=== PATIENT | male | born 1955 | race American Indian/Alaskan Native ===

== ENCOUNTER 2020-09-25 12:49 | Emergency (ER) | payer MEDICARE ==
--- NOTE | 2020-09-25 15:29 | Emergency Department Report ---
ED General Adult HPI - General Chief complaint: Headache Stated complaint: HEAD PAIN Time Seen by Provider: 09/25/20 14:38 Source: patient Mode of arrival: Ambulatory Limitations: No Limitations - History of Present Illness Initial comments: Is a pleasant 65-year-old male who presents to the emergency department the chief complaint of nasal congestion and sores in his nose. He reports he has had this in the past and it was secondary to a sinus infection. He reports this feels very similar. He also reports a mild cough and congestion. He is reque sting a COVID-19 test. He denies any sick contacts. He denies any associated fever, chills, night sweats, headache, dizziness, blurry vision, chest pain, shortness of breath, weakness or any other associated symptoms. - Related Data Previous Rx's Medication Instructions Recorded Last Taken Type Azithromycin [Zithromax Z-HARMAN] 0 mg PO DAILY #1 tab 09/25/20 Unknown Rx Fluticasone [Flonase] 1 spray NS QDAY #1 bottle 09/25/20 Unknown Rx Allergies Allergy/AdvReac Type Severity Reaction Status Date / Time No Known Allergies Allergy Unverified 09/25/20 14:06 ED Review of Systems ROS: Stated complaint: HEAD PAIN Other details as noted in HPI Comment: All other systems reviewed and negative Constitutional: denies: chills, fever Eyes: denies: eye pain, eye discharge, vision change ENT: as per HPI, congestion. denies: ear pain, throat pain Respiratory: see HPI, cough. denies: shortness of breath, wheezing Cardiovascular: denies: chest pain, palpitations Endocrine: no symptoms reported Gastrointestinal: denies: abdominal pain, nausea, diarrhea Genitourinary: denies: urgency, dysuria Musculoskeletal: denies: back pain, joint swelling, arthralgia Skin: denies: rash, lesions Neurological: denies: headache, weakness, paresthesias Psychiatric: denies: anxiety, depression Hematological/Lymphatic: denies: easy bleeding, easy bruising ED Past Medical Hx - Past Medical History Previous Medical History?: Yes Hx Hypertension: Yes Hx Diabetes: Yes - Surgical History Past Surgical History?: No - Medications Home Medications: Home Medications Medication Instructions Recorded Confirmed Last Taken Type Azithromycin [Zithromax Z-HARMAN] 0 mg PO DAILY #1 tab 09/25/20 Unknown Rx Fluticasone [Flonase] 1 spray NS QDAY #1 bottle 09/25/20 Unknown Rx ED Physical Exam - General Limitations: No Limitations General appearance: alert, in no apparent distress - Head Head exam: Present: atraumatic, normocephalic - Eye Eye exam: Present: normal appearance, PERRL, EOMI Pupils: Present: normal accommodation - ENT ENT exam: Present: normal exam, normal orophraynx, mucous membranes moist - Neck Neck exam: Present: normal inspection, full ROM. Absent: tenderness, meningismus, lymphadenopathy - Respiratory Respiratory exam: Present: normal lung sounds bilaterally. Absent: respiratory distress, wheezes, rales, rhonchi, stridor - Cardiovascular Cardiovascular Exam: Present: regular rate, normal rhythm, normal heart sounds. Absent: systolic murmur, diastolic murmur, rubs, gallop - GI/Abdominal GI/Abdominal exam: Present: soft, normal bowel sounds. Absent: distended, tenderness, guarding, rebound, rigid - Rectal Rectal exam: Present: deferred - Extremities Exam Extremities exam: Present: normal inspection, full ROM, normal capillary refill. Absent: tenderness - Back Exam Back exam: Present: normal inspection, full ROM. Absent: tenderness, CVA tenderness (R), CVA tenderness (L) - Neurological Exam Neurological exam: Present: alert, oriented X3, CN II-XII intact, normal gait - Psychiatric Psychiatric exam: Present: normal affect, normal mood - Skin Skin exam: Present: warm, dry, intact, normal color. Absent: rash ED Course Vital Signs 09/25/20 14:09 Temperature 99.3 F Pulse Rate 112 H Respiratory 18 Rate Blood Pressure 148/83 O2 Sat by Pulse 94 Oximetry ED Medical Decision Making - Medical Decision Making Patient is nontoxic in no acute distress. He is well-appearing. I did recheck his pulse and it was 98 and O2 sat remained in the upper 90s. He is not having any chest pain, shortness of breath. He did request a Covid test which unfortunately do not do in the emergency department but I did educate him that I think it would be a good idea to get a Covid test. He is not examining complicated features of Covid such as shortness of breath, chest pain, hypoxia at this time. His temperature was slightly elevated 99.3 and I did tell him that this is a good possibility he could have Covid due to the global pandemic and the delta strain being very high in this area. I recommended he go get tested and continue supportive treatment. At this time his symptoms are consistent with acute sinusitis which would not require antibiotics however to the possibility of Covid and cough I will cover him with his azithromycin for atypical infection as well as nasal corticosteroids and follow-up with his primary care doctor. Recommend he return to the emergency department he develops any change or worsening symptoms. He verbalized understanding the diagnosis, treatment plan and follow-up instructions all of his questions were a nswered. - Differential Diagnosis COVID-19, sinusitis, pneumonia Critical care attestation.: If time is entered above; I have spent that time in minutes in the direct care of this critically ill patient, excluding procedure time. ED Disposition Clinical Impression: Suspected COVID-19 virus infection Sinusitis Qualifiers: Sinusitis location: frontal Chronicity: acute Recurrence: non-recurrent Qualified Code(s): J01.10 - Acute frontal sinusitis, unspecified Disposition: DC- TO HOME OR SELFCARE Is pt being admited?: No Condition: Stable Instructions: Sinusitis, Adult, [id number]-[id number] Prescriptions: Fluticasone [Flonase] 1 spray NS QDAY #1 bottle Azithromycin [Zithromax Z-HARMAN] 0 mg PO DAILY #1 tab Referrals: PRIMARY CARE, [Primary Care Provider] - 3-5 Days Time of Disposition: 15:29
[2020-09-25 16:04] VITALS: BP 142/80
== END 2020-09-25 16:03 | disposition home or self-care (01) ==
LOC: ED 12:49
DX: J32.9 Chronic sinusitis, unspecified (principal); I10 Essential (primary) hypertension; E11.9 Type 2 diabetes mellitus without complications; Z20.822 Contact with and (suspected) exposure to COVID-19; Z79.899 Other long term (current) drug therapy
CPT/HCPCS: 99281

== ENCOUNTER 2020-09-28 12:00 | Inpatient (IN) | payer MEDICARE ==
[2020-09-28] MEDS ORDERED: SODIUM CHLORIDE 0.9% 1000 ML 1,000 ML IV ONE ×2 (14:16)
--- NOTE | 2020-09-28 14:20 | Emergency Department Report ---
HPI - General Chief Complaint: Dyspnea/Respdistress Time Seen by Provider: 09/28/20 13:13 - HPI HPI: Room 22 The patient is a 65-year-old male present with chief complaint of weakness. Patient came to this ED approximate 3 days ago and was diagnosed with sinusitis. Patient was warned that his he may have COVID-19 and is recommended that he receive testing as an outpatient. Patient states he never got tested but over the weekend is very fatigued and "just laying around the house" all day. Patient admits to rhinorrhea and intermittent shortness of breath. Patient states he has had a cough for the past 4 to 5 days this been nonproductive. Zenia dewey denies history of fever but states he has had a decreased appetite. This morning the patient states he was too weak to get out of bed and every time he stood up he felt weak and went back to bed. The patient eventually came to the ED he was found to be hypoxic with SPO2 of 73% on room air. Patient was placed on supplemental O2 with improvement of his SPO2. The patient states she has not received any COVID-19 vaccinations ED Past Medical Hx - Past Medical History Previous Medical History?: Yes Hx Hypertension: Yes Hx Diabetes: Yes - Surgical History Past Surgical History?: No - Family History Family history: no significant - Social History Smoking Status: Never Smoker Substance Use Type: None - Medications Home Medications: Home Medications Medication Instructions Recorded Confirmed Last Taken Type Azithromycin [Zithromax Z-HARMAN] 0 mg PO DAILY #1 tab 09/25/20 Unknown Rx Fluticasone [Flonase] 1 spray NS QDAY #1 bottle 09/25/20 Unknown Rx ED Review of Systems ROS: Stated complaint: COUGH Other details as noted in HPI Constitutional: weakness. denies: fever Eyes: denies: eye pain ENT: congestion Respiratory: cough, shortness of breath Cardiovascular: denies: chest pain Endocrine: no symptoms reported Gastrointestinal: denies: abdominal pain Genitourinary: denies: dysuria Musculoskeletal: denies: back pain Neurological: denies: headache Physical Exam - Physical Exam Vital Signs: Vital Signs 09/28/20 09/28/20 09/28/20 12:39 12:41 13:10 Temperature 98.8 F Pulse Rate 135 H Respiratory 30 H Rate Blood Pressure 152/85 [Right] O2 Sat by Pulse 73 L 95 91 Oximetry Physical Exam: GENERAL: The patient is well-developed well-nourished male lying on stretcher not appearing to be in acute distress. [] HEENT: Normocephalic. Atraumatic. Extraocular motions are intact. Patient has moist mucous membranes. NECK: Supple. Trachea midline CHEST/LUNGS: No rhonchi, crackles or wheezing auscultated. Slightly increased work of breathing. HEART/CARDIOVASCULAR: Regular. There is tachycardia. There is no gallop rub or murmur. ABDOMEN: Abdomen is soft, nontender. Patient has normal bowel sounds. There is no abdominal distention. SKIN: There is no rash. There is no edema. There is no diaphoresis. NEURO: The patient is awake, alert, and oriented. The patient is cooperative. The patient has no focal neurologic deficits. The patient has normal speech. GCS 15 MUSCULOSKELETAL: There is no evidence of acute injury. ED Course Vital Signs 09/28/20 09/28/20 09/28/20 12:39 12:41 13:10 Temperature 98.8 F Pulse Rate 135 H Respiratory 30 H Rate Blood Pressure 152/85 [Right] O2 Sat by Pulse 73 L 95 91 Oximetry ED Medical Decision Making - Lab Data Result diagrams: 09/28/20 14:08 09/28/20 14:08 - EKG Data -: EKG Interpreted by Me EKG shows normal: sinus rhythm Rate: tachycardia (103 bpm) - EKG Data When compared to previous EKG there are: previous EKG unavailable Interpretation: nonspecific ST-T wave june (T wave inversion lead III) - Radiology Data Radiology results: report reviewed (Chest x-ray), image reviewed (Chest x-ray) interpreted by me: Chest [id number] patchy infiltrates. No pneumothorax. [facility] [address] [place] [address] XRay Report Signed Patient: DORIS VALDEZ MR#: [id number] : 1955 Acct:[id number] Age/Sex: 65 / M ADM Date: 09/28/20 Loc: ED Attending Dr: Ordering Physician: SOPHIA KELLER MD Date of Service: 09/28/20 Procedure(s): XR chest 1V ap Accession Number(s): [id number] cc: SOPHIA KELLER MD Fluoro Time In Minutes: CHEST 1 VIEW 09/28/2020 2:12 PM INDICATION / CLINICAL INFORMATION: Shortness of breath. COMPARISON: None available. FINDINGS: SUPPORT DEVICES: None. HEART / MEDIASTINUM: No significant abnormality. LUNGS / PLEURA: There are mild patchy bibasilar opacities. No pneumothorax. ADDITIONAL FINDINGS: No significant additional findings. IMPRESSION: 1. Mild patchy bibasilar opacities which may indicate multifocal pneumonia. Signer Name: Alex Zavala MD Signed: 09/28/2020 2:39 PM Workstation Name: [id number] Transcribed By: LOLY Dictated By: Alex Zavala MD Electronically Authenticated By: Alex Zavala MD Signed Date/Time: 09/28/201438 DD/ 38 TD/TT: Print Cancel - Differential Diagnosis COVID-19, CHF, pneumonia, influenza, Critical care attestation.: If time is entered above; I have spent that time in minutes in the direct care of this critically ill patient, excluding procedure time. ED Disposition Clinical Impression: Suspected COVID-19 virus infection, Hypoxia Disposition: OP ADMIT IP TO THIS HOSP Is pt being admited?: Yes Does the pt Need Aspirin: No Condition: Fair Referrals: PRIMARY CARE, [Primary Care Provider] - 3-5 Days Time of Disposition: 15:59 (Hospitalist notified (Dr. Zhang))
--- NOTE | 2020-09-28 14:44 | XRay Report ---
CHEST 1 VIEW 09/28/2020 2:12 PM INDICATION / CLINICAL INFORMATION: Shortness of breath. COMPARISON: None available. FINDINGS: SUPPORT DEVICES: None. HEART / MEDIASTINUM: No significant abnormality. LUNGS / PLEURA: There are mild patchy bibasilar opacities. No pneumothorax. ADDITIONAL FINDINGS: No significant additional findings. IMPRESSION: 1. Mild patchy bibasilar opacities which may indicate multifocal pneumonia. Signer Name: Alex Zavala MD Signed: 09/28/2020 2:39 PM Workstation Name: [id number]
[2020-09-28 14:45] LABS: Basophils % (Auto) 0.1 % (0.0-1.8); Hematocrit 45.4 % (35.5-45.6); Hemoglobin 15.1 gm/dl (11.8-15.2); Lymphocytes # (Auto) 0.4 K/mm3 (1.2-5.4); Lymphocytes % (Auto) 8.4 % (13.4-35.0); Mean Corpuscular HGB Conc 33 % (32-34); Mean Corpuscular Volume 92 fl (84-94); Monocytes # (Auto) 0.3 K/mm3 (0.0-0.8); Monocytes % (Auto) 7.8 % (0.0-7.3); Platelet Count 234 K/mm3 (140-440); Red Blood Count 4.91 M/mm3 (3.65-5.03); Red Cell Distribution Width 13.6 % (13.2-15.2)
[2020-09-28 14:58] LABS: Partial Thromboplastin Time 28.2 Sec. (24.2-36.6)
[2020-09-28 15:05] LABS: Alanine Aminotransferase 32 units/L (7-56); Albumin 3.6 g/dL (3.9-5); BUN/Creatinine Ratio 19; Blood Urea Nitrogen 17 mg/dL (9-20); Calcium 9.2 mg/dL (8.4-10.2); Hemolysis Index 5
--- NOTE | 2020-09-28 16:00 | History and Physical Report ---
History of Present Illness Chief complaint: I feel bad History of present illness: 65 YO Male with HTN, DM, Obesity Hypoventilation Syndrome presents to ED for evaluation. Patient reports "I feel bad". Patient states that he has experienced fatigue, malaise, decreased exercise tolerance, rhinorrhea, shortness of breath, dry cough over the past 5 days with worsening symptoms over the same timeframe. Patient presented to ED 3 days ago and was discharged home and treated with outpatient therapy. Patient states his symptoms have worsened in spite of compliance with therapy. Patient presents to ED for reevaluation of symptoms. Patient was transported to [facility] via private vehicle for further care and evaluation of the aforementioned symptoms. The patient was seen and evaluated in the emergency department. All lab and imaging studies reviewed. Patient was found to have a pulse oximetry of 74% on room air which is consistent with acute hypoxemic respiratory failure. Chest x-ray revealed bilateral pneumonia which was complicated by sepsis. Patient admitted to medical floor and initiated on sepsis protocol as well as coronavirus protocol. Patient denies fever, chills, chest pain, palpitation, skin rash, recent ill contacts, or known exposure to COVID-19. The patient has not been vaccinated against COVID-19. No prior admission for review. No medication listed at time of admission for reconciliation. Advanced care planning conducted in ED. Past History Past Medical History: diabetes, hypertension, other (See HPI) Past Surgical History: No surgical history, Other (Reviewed) Social history: , Lives alone. denies: smoking, alcohol abuse, prescription drug abuse Family history: diabetes, hypertension Medications and Allergies Allergies Allergy/AdvReac Type Severity Reaction Status Date / Time No Known Allergies Allergy Unverified 09/25/20 14:06 Home Medications Medication Instructions Recorded Confirmed Last Taken Type Azithromycin [Zithromax Z-HARMAN] 0 mg PO DAILY #1 tab 09/25/20 Unknown Rx Fluticasone [Flonase] 1 spray NS QDAY #1 bottle 09/25/20 Unknown Rx Review of Systems Constitutional: fatigue, weakness, malaise, no fever, no sweats Ears, nose, mouth and throat: no ear pain, no ear discharge, no tinnitis, no decreased hearing, no nasal congestion Cardiovascular: no chest pain, no orthopnea, no palpitations, no rapid/irregular heart beat Respiratory: cough, shortness of breath, no hemoptysis Gastrointestinal: no nausea, no vomiting, no diarrhea, no constipation Genitourinary Male: no hematuria, no flank pain, no discharge, no urinary frequency, no urinary hesitancy Rectal: no pain, no incontinence, no bleeding Musculoskeletal: no neck stiffness, no neck pain, no shooting arm pain, no arm numbness/tingling, no shooting leg pain Integumentary: no rash, no pruritis, no redness, no sores, no wounds, no jaundice Neurological: no paralysis, no weakness, no parathesias, no numbness, no tin gling, no seizures Psychiatric: no anxiety, no memory loss, no change in sleep habits, no insomnia, no hypersomnia, no change in appetite, no change in libido, no disorientation Endocrine: no cold intolerance, no heat intolerance, no polyphagia, no excessive thirst, no polydipsia, no polyuria, no excessive sweating, no flushing Hematologic/Lymphatic: no easy bruising, no easy bleeding, no lymphadenopathy, no lymphedema Allergic/Immunologic: no persistent infections, no anaphylaxis Exam - Constitutional Vitals: Temp Pulse Resp BP Pulse Ox 98.8 F 112 H 25 H 117/56 90 09/28/20 12:39 09/28/20 15:30 09/28/20 15:30 09/28/20 15:30 09/28/20 15:30 General appearance: Present: mild distress, obese - EENT Eyes: Present: PERRL ENT: hearing intact, clear oral mucosa - Neck Neck: Present: supple, normal ROM - Respiratory Respiratory effort: normal, labored, accessory muscle use, stridor Respiratory: bilateral: diminished, rhonchi - Cardiovascular Heart Sounds: Present: S1 & S2. Absent: rub, click - Extremities Extremities: pulses symmetrical, No edema Peripheral Pulses: abnormal (Capillary refill greater than 3.5 seconds) - Abdominal General gastrointestinal: Present: soft, non-tender, non-distended, normal bowel sounds Male genitourinary: Present: normal - Integumentary Integumentary: Present: clear, warm, dry - Musculoskeletal Musculoskeletal: gait normal, strength equal bilaterally - Psychiatric Psychiatric: appropriate mood/affect, intact judgment & insight - Neurologic Neurologic: CNII-XII intact, moves all extremities Results - Labs CBC & Chem 7: 09/28/20 14:08 09/28/20 14:08 Labs: Abnormal lab results 09/28/20 09/28/20 09/28/20 Range/Units 14:08 14:08 14:08 Lymph % (Auto) 8.4 L (13.4-35.0) % [place] % (Auto) 7.8 H (0.0-7.3) % Lymph # (Auto) 0.4 L (1.2-5.4) K/mm3 Seg Neutrophils % 83.7 H (40.0-70.0) % D-Dimer 472.87 H (0-234) ng/mlDDU Sodium 136 L (137-145) mmol/L Chloride 97.7 L (98-107) mmol/L Glucose 174 H (75-100) mg/dL Ferritin (30.0-300.0) ng/mL AST 43 H (5-40) units/L Lactate Dehydrogenase 623 H (91-180) units/L C-Reactive Protein 8.70 H (0.00-1.30) mg/dL Albumin 3.6 L (3.9-5) g/dL 09/28/20 Range/Units 14:08 Lymph % (Auto) (13.4-35.0) % [place] % (Auto) (0.0-7.3) % Lymph # (Auto) (1.2-5.4) K/mm3 Seg Neutrophils % (40.0-70.0) % D-Dimer (0-234) ng/mlDDU Sodium (137-145) mmol/L Chloride (98-107) mmol/L Glucose (75-100) mg/dL Ferritin 2520.0 H (30.0-300.0) ng/mL AST (5-40) units/L Lactate Dehydrogenase (91-180) units/L C-Reactive Protein (0.00-1.30) mg/dL Albumin (3.9-5) g/dL Assessment and Plan - Patient Problems (1) Sepsis Current Visit: Yes Status: Acute Qualifiers: Acute respiratory failure type: with hypoxia Plan to address problem: Sepsis protocol: CBC, CMP, chest x-ray, urinalysis, blood culture, IV antibiotic therapy, IV fluid resuscitation therapy, monitor urine output every shift, maintain mean arterial pressure greater than or equal to 65, serial lactic acid level, (2) Acute hypoxemic respiratory failure Current Visit: Yes Status: Acute Plan to address problem: Chest x-ray, supplemental oxygen, pulse oximetry, nebulizer therapy, noninvasive positive pressure ventilation as clinically indicated. (3) Pneumonia Current Visit: Yes Status: Acute Plan to address problem: Pneumonia protocol: Chest x-ray, CBC, CMP, IV antibiotic therapy, supplemental oxygen, pulse oximetry, nebulizer therapy, (4) Obesity hypoventilation syndrome Current Visit: Yes Status: Acute Plan to address problem: Balanced diet, increase physical activity at discharge, outpatient pulmonary follow-up for sleep study (5) Diabetes mellitus Current Visit: Yes Status: Acute Plan to address problem: Consistent carbohydrate diet, sliding scale insulin therapy, Accu-Chek, hypoglycemia protocol (6) Suspected COVID-19 virus infection Current Visit: Yes Status: Acute Plan to address problem: Coronavirus protocol: IV steroid therapy, IV antibiotic therapy, supplemental oxygen, pulse oximetry, nebulizer therapy, vitamin C therapy, vitamin D therapy, zinc therapy, prophylactic anticoagulation. (7) DVT prophylaxis Current Visit: Yes Status: Acute Plan to address problem: SCD to bilateral lower extremities while in bed, prophylactic anticoagulation (8) Advance care planning Current Visit: Yes Status: Acute Plan to address problem: Disease education conducted, care plan discussed, prognosis discussed, diagnoses discussed, patient knowledges understanding and agreement with care plan, patient is full code, +30 minutes.
[2020-09-28] MEDS ORDERED: ONDANSETRON 4 MG/2 ML INJ IV PRN (16:30)
[2020-09-28] MEDS ORDERED: ACETAMINOPHEN 325 MG TAB PO PRN ×2 (16:30)
[2020-09-28] MEDS ORDERED: HYDROmorphone 1 MG/1 ML INJ IV PRN (16:30)
[2020-09-28] MEDS ORDERED: ALBUTEROL 2.5 MG/3 ML NEBU IH PRN (16:30)
[2020-09-28] MEDS ORDERED: oxyCODONE /ACETAMINOPHEN 5-325MG TAB PO PRN (17:00)
[2020-09-28] MEDS: cefTRIAXone/NS 2 GM/100 ML 2 GM/100 ML BAG IV SCH (18:25)
[2020-09-28] MEDS: AZITHROMYCIN/NS 500 MG/250 ML 500 MG/250 ML BAG IV SCH (18:26)
[2020-09-28] MEDS: HEPARIN 5,000 UNIT/1 ML VIAL SUB-Q SCH (23:52)
[2020-09-28] MEDS: methylPREDNISolone Sod Succinate 40 MG/1 ML INJ IV SCH (23:52)
[2020-09-28] MEDS: ZINC SULFATE 220 MG CAP PO SCH (23:52)
[2020-09-28] MEDS: ASCORBIC ACID 500 MG TAB PO SCH (23:52)
[2020-09-29] MEDS: methylPREDNISolone Sod Succinate 40 MG/1 ML INJ IV SCH ×3 (05:59→22:47)
[2020-09-29 08:47] LABS: Bacteria,Urine 1+ /HPF (Negative); Bilirubin,Urine NEG (Negative); Blood,Urine LG (Negative); Color,Urine Yellow (Yellow); Mucus,Urine FEW /HPF; Urobilinogen,Urine < 2.0 mg/dL (<2.0)
--- NOTE | 2020-09-29 09:53 | Progress Note ---
Assessment and Plan Assessment and plan: Patient did not take COVID-19 vaccine --COVID-19 virus infection Current Visit: Yes Status: Acute Isolation precautions: Contact and droplet Inflammatory markers Patient is hypoxic requiring supplemental oxygen Continue IV Solu-Medrol Started remdesivir Prone positioning Home O2 evaluation at discharge ID consult Supportive therapy with zinc, vitamin C and vitamin D3 -- Sepsis; due to COVID-19 pneumonia Current Visit: Yes Status: Acute Sepsis protocol: CBC, CMP, chest x-ray, urinalysis, blood culture, IV antibiotic therapy, IV fluid resuscitation therapy, monitor urine output every shift, maintain mean arterial pressure greater than or equal to 65, serial lactic acid level, -- Acute hypoxemic respiratory failure Current Visit: Yes Status: Acute Chest x-ray, supplemental oxygen, pulse oximetry, nebulizer therapy, noninvasive positive pressure ventilation as clinically indicated. --Pneumonia; Current Visit: Yes Status: Acute On empiric antibiotics DC antibiotics, procalcitonin is normal range --Obesity hypoventilation syndrome Current Visit: Yes Status: Acute Balanced diet, increase physical activity at discharge, outpatient pulmonary follow-up for sleep study --Type II diabetes mellitus Current Visit: Yes Status: Acute Consistent carbohydrate diet, sliding scale insulin therapy, Accu-Chek, hypoglycemia protocol --Obesity; BMI 33.8 Current Visit: Yes Status: Acute -DVT prophylaxis Current Visit: Yes Status: Acute SCD to bilateral lower extremities while in bed, prophylactic anticoagulation --Advance care planning Current Visit: Yes Status: Acute Disease education conducted, care plan discussed, prognosis discussed, diagnoses discussed, patient knowledges understanding and agreement with care plan, patient is full code, +30 minutes. Closely monitor patient and adjust management as needed History Interval history: Seen and examined the patient in ER awaiting bed assignment Admitted as PUI, cruz PCR test is positive for COVID-19 infection Patient complains of generalized weakness and shortness of breath Vital signs noted Hospitalist Physical - Constitutional Vitals: Temp Pulse Resp BP Pulse Ox 97.8 F 109 H 39 H 154/95 92 09/29/20 08:12 09/29/20 08:01 09/29/20 08:01 09/29/20 08:01 09/29/20 08:12 General appearance: Present: mild distress, well-nourished, obese - EENT Eyes: Present: PERRL, EOM intact - Neck Neck: Present: supple, normal ROM - Respiratory Respiratory effort: normal Respiratory: bilateral: diminished, rales, negative: rhonchi, wheezing - Cardiovascular Rhythm: regular Heart Sounds: Present: S1 & S2 - Extremities Extremities: no ischemia, No edema - Abdominal General gastrointestinal: soft, non-tender, non-distended, normal bowel sounds - Integumentary Integumentary: Present: clear, warm - Psychiatric Psychiatric: appropriate mood/affect, cooperative - Neurologic Neurologic: CNII-XII intact, moves all extremities Results - Labs CBC & Chem 7: 09/28/20 14:08 09/29/20 16:11 Labs: Laboratory Last Values WBC 4.5 K/mm3 (4.5-11.0) 09/28/20 14:08 RBC 4.91 M/mm3 (3.65-5.03) 09/28/20 14:08 Hgb 15.1 gm/dl (11.8-15.2) 09/28/20 14:08 Hct 45.4 % (35.5-45.6) 09/28/20 14:08 MCV 92 fl (84-94) 09/28/20 14:08 MCH 31 pg (28-32) 09/28/20 14:08 MCHC 33 % (32-34) 09/28/20 14:08 RDW 13.6 % (13.2-15.2) 09/28/20 14:08 Plt Count 234 K/mm3 (140-440) 09/28/20 14:08 Lymph % (Auto) 8.4 % (13.4-35.0) L 09/28/20 14:08 [place] % (Auto) 7.8 % (0.0-7.3) H 09/28/20 14:08 Eos % (Auto) 0.0 % (0.0-4.3) 09/28/20 14:08 Baso % (Auto) 0.1 % (0.0-1.8) 09/28/20 14:08 Lymph # (Auto) 0.4 K/mm3 (1.2-5.4) L 09/28/20 14:08 [place] # (Auto) 0.3 K/mm3 (0.0-0.8) 09/28/20 14:08 Eos # (Auto) 0.0 K/mm3 (0.0-0.4) 09/28/20 14:08 Baso # (Auto) 0.0 K/mm3 (0.0-0.1) 09/28/20 14:08 Seg Neutrophils % 83.7 % (40.0-70.0) H 09/28/20 14:08 Seg Neutrophils # 3.7 K/mm3 (1.8-7.7) 09/28/20 14:08 APTT 28.2 Sec. (24.2-36.6) 09/28/20 14:08 D-Dimer 472.87 ng/mlDDU (0-234) H 09/28/20 14:08 Sodium 136 mmol/L (137-145) L 09/28/20 14:08 Potassium 4.3 mmol/L (3.6-5.0) 09/28/20 14:08 Chloride 97.7 mmol/L (98-107) L 09/28/20 14:08 Carbon Dioxide 25 mmol/L (22-30) 09/28/20 14:08 Anion Gap 18 mmol/L 09/28/20 14:08 BUN 17 mg/dL (9-20) 09/28/20 14:08 Creatinine 0.9 mg/dL (0.8-1.3) 09/28/20 14:08 Estimated GFR > 60 ml/min 09/28/20 14:08 BUN/Creatinine Ratio 19 % 09/28/20 14:08 Glucose 174 mg/dL (75-100) H 09/28/20 14:08 Lactic Acid 1.10 mmol/L (0.7-2.0) 09/28/20 23:27 Calcium 9.2 mg/dL (8.4-10.2) 09/28/20 14:08 Ferritin 2520.0 ng/mL (30.0-300.0) H 09/28/20 14:08 Total Bilirubin 0.40 mg/dL (0.1-1.2) 09/28/20 14:08 AST 43 units/L (5-40) H 09/28/20 14:08 ALT 32 units/L (7-56) 09/28/20 14:08 Alkaline Phosphatase 76 units/L (35-129) 09/28/20 14:08 Lactate Dehydrogenase 623 units/L (91-180) H 09/28/20 14:08 C-Reactive Protein 8.70 mg/dL (0.00-1.30) H 09/28/20 14:08 Total Protein 7.3 g/dL (6.3-8.2) 09/28/20 14:08 Albumin 3.6 g/dL (3.9-5) L 09/28/20 14:08 Albumin/Globulin Ratio 1.0 % 09/28/20 14:08 Urine Color Yellow (Yellow) 09/29/20 08:00 Urine Turbidity Slightly-cloudy (Clear) 09/29/20 08:00 Urine pH 5.0 (5.0-7.0) 09/29/20 08:00 Ur Specific Rose 1.021 (1.003-1.030) 09/29/20 08:00 Urine Protein 100 mg/dl mg/dL (Negative) 09/29/20 08:00 Urine Glucose (UA) Neg mg/dL (Negative) 09/29/20 08:00 Urine Ketones 20 mg/dL (Negative) 09/29/20 08:00 Urine Blood Lg (Negative) 09/29/20 08:00 Urine Nitrite Neg (Negative) 09/29/20 08:00 Urine Bilirubin Neg (Negative) 09/29/20 08:00 Urine Urobilinogen < 2.0 mg/dL (<2.0) 09/29/20 08:00 Ur Leukocyte Esterase Neg (Negative) 09/29/20 08:00 Urine WBC (Auto) 2.0 /HPF (0.0-6.0) 09/29/20 08:00 Urine RBC (Auto) 89.0 /HPF (0.0-6.0) 09/29/20 08:00 Urine Bacteria (Auto) 1+ /HPF (Negative) 09/29/20 08:00 Urine Mucus Few /HPF 09/29/20 08:00 Microbiology: Microbiology 09/28/20 14:08 Peripheral/Venous Blood Culture - Preliminary Culture in Progress 09/28/20 14:08 Peripheral/Venous Blood Culture - Preliminary Culture in Progress Active Medications - Current Medications Current Medications: Generic Name Dose Route Start Last Admin Trade Name Freq PRN Reason Stop Dose Admin Acetaminophen 650 mg 09/28/20 16:30 Acetaminophen 325 Mg Tab PO Q4H PRN Pain MILD(1-3)/Fever >100.5/ESQUIVEL Acetaminophen 650 mg 09/28/20 16:30 Acetaminophen 325 Mg Tab PO Q6H PRN Pain, Mild (1-3) Albuterol 2.5 mg 09/28/20 16:30 Albuterol 2.5 Mg/3 Ml Nebu IH Q4HRT PRN Shortness Of Breath Ascorbic Acid 500 mg 09/28/20 22:00 09/28/20 23:52 Ascorbic Acid 500 Mg Tab PO 500 mg BID RENEE Administration Cholecalciferol 1,000 unit 09/29/20 10:00 Cholecalciferol (Vit D3) 1000 Unit (25 Mcg) Tab PO QDAY RENEE Heparin Sodium (Porcine) 5,000 unit 09/28/20 22:00 09/28/20 23:52 Heparin 5,000 Unit/1 Ml Vial SUB-Q 5,000 unit Q12HR RENEE Administration Hydromorphone HCl 0.5 mg 09/28/20 16:30 Hydromorphone 1 Mg/1 Ml Inj IV Q12H PRN Pain , Severe (7-10) Ceftriaxone Sodium 2 gm in 100 mls @ 200 mls/hr 09/28/20 18:00 09/28/20 18:25 Rocephin/Ns 2 Gm/100 Ml IV 10/02/20 23:59 200 mls/hr Q24H RENEE Administration Protocol Azithromycin 500 mg in 250 mls @ 250 mls/hr 09/28/20 17:00 09/28/20 18:26 Zithromax/Ns IV 10/02/20 17:59 250 mls/hr Q24H RENEE Administration Protocol Methylprednisolone Sodium Succinate 40 mg 09/28/20 22:00 09/29/20 05:59 Methylprednisolone Sod Succinate 40 Mg/1 Ml Inj IV 40 mg Q8HR RENEE Administration Ondansetron HCl 4 mg 09/28/20 16:30 Ondansetron 4 Mg/2 Ml Inj IV Q8H PRN Nausea And Vomiting Oxycodone/Acetaminophen 1 tab 09/28/20 17:00 Oxycodone /Acetaminophen 5-325mg Tab PO Q12H PRN Pain, Moderate (4-6) Sodium Chloride 10 ml 09/28/20 22:00 09/28/20 23:52 Sodium Chloride 0.9% 10 Ml Flush Syringe IV 10 ml BID RENEE Administration Sodium Chloride 10 ml 09/28/20 16:30 Sodium Chloride 0.9% 10 Ml Flush Syringe IV PRN PRN LINE FLUSH Zinc Sulfate 220 mg 09/28/20 22:00 09/28/20 23:52 Zinc Sulfate 220 Mg Cap PO 220 mg BID RENEE Administration
--- NOTE | 2020-09-29 10:11 | Electrocardiograph Report ---
[facility] Test Date: 2020-09-28 Test Time: 16:19:40 Pat Name: DORIS VALDEZ Department: Room: [place] [address] Gender: M [employer] Executive Director: PINKY : 1955 Requested By: SOPHIA KELLER Order Number: [id number] Reading MD: Oracio Swift Measurements Intervals [place] Rate: 103 P: 28 [place]: 148 QRS: -22 QRSD: 101 T: 22 QT: 354 QTc: 465 Interpretive Statements Sinus tachycardia nonspecific st-t No previous ECG available for comparison Electronically Signed On 09-29-2020 10:10:53 EDT by Oracio Swift
[2020-09-29] MEDS: ASCORBIC ACID 500 MG TAB PO SCH ×2 (12:06→22:38)
[2020-09-29] MEDS: HEPARIN 5,000 UNIT/1 ML VIAL SUB-Q SCH ×2 (12:06→22:48)
[2020-09-29] MEDS: ZINC SULFATE 220 MG CAP PO SCH ×2 (12:06→22:39)
[2020-09-29] MEDS: CHOLECALCIFEROL (VIT D3) 1000 UNIT (25 mcg) TAB PO SCH (12:06)
[2020-09-29] MEDS ORDERED: REMDESIVIR 200 MG in SODIUM CHLORIDE 0.9% 250ML 250 ML IV ONE (16:30)
[2020-09-29] MEDS: SODIUM CHLORIDE 0.9% 50 ML IVPB IV SCH (16:45)
[2020-09-29 17:21] LABS: Alanine Aminotransferase 29 units/L (7-56); Albumin 3.4 g/dL (3.9-5); BUN/Creatinine Ratio 20; Blood Urea Nitrogen 16 mg/dL (9-20); Calcium 9.1 mg/dL (8.4-10.2); Hemolysis Index 12
[2020-09-29] MEDS: cefTRIAXone/NS 2 GM/100 ML 2 GM/100 ML BAG IV SCH (17:36)
[2020-09-29] MEDS: AZITHROMYCIN/NS 500 MG/250 ML 500 MG/250 ML BAG IV SCH (18:45)
[2020-09-30] MEDS: methylPREDNISolone Sod Succinate 40 MG/1 ML INJ IV SCH ×3 (05:49→21:51)
[2020-09-30 05:59] LABS: Alanine Aminotransferase 30 units/L (7-56); Albumin 3.3 g/dL (3.9-5); Blood Urea Nitrogen 17 mg/dL (9-20); Calcium 9.2 mg/dL (8.4-10.2); Hemolysis Index 32
[2020-09-30 06:01] LABS: BUN/Creatinine Ratio 24
--- NOTE | 2020-09-30 09:33 | Progress Note ---
Assessment and Plan Assessment and plan: Patient did not take COVID-19 vaccine --COVID-19 virus infection Current Visit: Yes Status: Acute Isolation precautions: Contact and droplet Inflammatory markers Patient is hypoxic requiring supplemental oxygen Continue IV Solu-Medrol Started remdesivir Prone positioning Home O2 evaluation at discharge ID consulted Supportive therapy with zinc, vitamin C and vitamin D3 -- Sepsis; due to COVID-19 pneumonia Current Visit: Yes Status: Acute Sepsis protocol: CBC, CMP, chest x-ray, urinalysis, blood culture, IV antibiotic therapy, IV fluid resuscitation therapy, monitor urine output every shift, maintain mean arterial pressure greater than or equal to 65, serial lactic acid level, -- Acute hypoxemic respiratory failure Current Visit: Yes Status: Acute Patient is on 12 L supplemental oxygen, BiPAP as needed --Pneumonia; Current Visit: Yes Status: Acute On empiric antibiotics DC antibiotics, procalcitonin is normal range, DC empiric antibiotics --Obesity hypoventilation syndrome Current Visit: Yes Status: Acute Balanced diet, increase physical activity at discharge, outpatient pulmonary follow-up for sleep study --Type II diabetes mellitus Current Visit: Yes Status: Acute Consistent carbohydrate diet, sliding scale insulin therapy, Accu-Chek, hypoglycemia protocol --Obesity; BMI 33.8 Current Visit: Yes Status: Acute -DVT prophylaxis Current Visit: Yes Status: Acute SCD to bilateral lower extremities while in bed, prophylactic anticoagulation --Advance care planning Current Visit: Yes Status: Acute Disease education conducted, care plan discussed, prognosis discussed, diagnoses discussed, patient knowledges understanding and agreement with care plan, patient is full code, +30 minutes. Closely monitor patient and adjust management as needed Plan of care reviewed with the patient and his nurse Consults and recommendations noted and appreciated 09/30/2020; Patient requires 2 L supplemental nasal cannula oxygen On Solu-Medrol, remdesivir, antibiotics DC'd normal procalcitonin Follow ID evaluation recommendation, prone positioning, home O2 evaluation History Interval history: I have examined the patient at the bedside Isolation precautions and PPE protocols followed per COVID-19 guidelines Patient is in mild respiratory distress Severely hypoxemic, on 12 L nasal cannula oxygen Vital signs noted Hospitalist Physical - Constitutional Vitals: Temp Pulse Resp BP Pulse Ox 98.1 F 114 H 28 H 164/95 94 09/30/20 09:07 09/30/20 09:01 09/30/20 09:07 09/30/20 08:01 09/30/20 09:01 General appearance: Present: mild distress, well-nourished, obese - EENT Eyes: Present: PERRL, EOM intact - Neck Neck: Present: supple, normal ROM - Respiratory Respiratory effort: normal Respiratory: bilateral: diminished, rhonchi, negative: rales, wheezing - Cardiovascular Rhythm: regular Heart Sounds: Present: S1 & S2 - Extremities Extremities: no ischemia, No edema - Abdominal General gastrointestinal: soft, non-tender, non-distended, normal bowel sounds - Integumentary Integumentary: Present: clear, warm - Psychiatric Psychiatric: appropriate mood/affect, cooperative - Neurologic Neurologic: CNII-XII intact, moves all extremities Results - Labs CBC & Chem 7: 09/28/20 14:08 09/30/20 04:48 Labs: Laboratory Last Values WBC 4.5 K/mm3 (4.5-11.0) 09/28/20 14:08 RBC 4.91 M/mm3 (3.65-5.03) 09/28/20 14:08 Hgb 15.1 gm/dl (11.8-15.2) 09/28/20 14:08 Hct 45.4 % (35.5-45.6) 09/28/20 14:08 MCV 92 fl (84-94) 09/28/20 14:08 MCH 31 pg (28-32) 09/28/20 14:08 MCHC 33 % (32-34) 09/28/20 14:08 RDW 13.6 % (13.2-15.2) 09/28/20 14:08 Plt Count 234 K/mm3 (140-440) 09/28/20 14:08 Lymph % (Auto) 8.4 % (13.4-35.0) L 09/28/20 14:08 [place] % (Auto) 7.8 % (0.0-7.3) H 09/28/20 14:08 Eos % (Auto) 0.0 % (0.0-4.3) 09/28/20 14:08 Baso % (Auto) 0.1 % (0.0-1.8) 09/28/20 14:08 Lymph # (Auto) 0.4 K/mm3 (1.2-5.4) L 09/28/20 14:08 [place] # (Auto) 0.3 K/mm3 (0.0-0.8) 09/28/20 14:08 Eos # (Auto) 0.0 K/mm3 (0.0-0.4) 09/28/20 14:08 Baso # (Auto) 0.0 K/mm3 (0.0-0.1) 09/28/20 14:08 Seg Neutrophils % 83.7 % (40.0-70.0) H 09/28/20 14:08 Seg Neutrophils # 3.7 K/mm3 (1.8-7.7) 09/28/20 14:08 APTT 28.2 Sec. (24.2-36.6) 09/28/20 14:08 D-Dimer 472.87 ng/mlDDU (0-234) H 09/28/20 14:08 Sodium 140 mmol/L (137-145) 09/30/20 04:48 Potassium 4.4 mmol/L (3.6-5.0) 09/30/20 04:48 Chloride 102.2 mmol/L (98-107) 09/30/20 04:48 Carbon Dioxide 27 mmol/L (22-30) 09/30/20 04:48 Anion Gap 15 mmol/L 09/30/20 04:48 BUN 17 mg/dL (9-20) 09/30/20 04:48 Creatinine 0.7 mg/dL (0.8-1.3) L 09/30/20 04:48 Estimated GFR > 60 ml/min 09/30/20 04:48 BUN/Creatinine Ratio 24 % 09/30/20 04:48 Glucose 203 mg/dL (75-100) H 09/30/20 04:48 Lactic Acid 1.10 mmol/L (0.7-2.0) 09/28/20 23:27 Calcium 9.2 mg/dL (8.4-10.2) 09/30/20 04:48 Ferritin 2520.0 ng/mL (30.0-300.0) H 09/28/20 14:08 Total Bilirubin 0.30 mg/dL (0.1-1.2) 09/30/20 04:48 AST 32 units/L (5-40) 09/30/20 04:48 ALT 30 units/L (7-56) 09/30/20 04:48 Alkaline Phosphatase 73 units/L (35-129) 09/30/20 04:48 Lactate Dehydrogenase 623 units/L (91-180) H 09/28/20 14:08 C-Reactive Protein 8.70 mg/dL (0.00-1.30) H 09/28/20 14:08 Total Protein 6.8 g/dL (6.3-8.2) 09/30/20 04:48 Albumin 3.3 g/dL (3.9-5) L 09/30/20 04:48 Albumin/Globulin Ratio 0.9 % 09/30/20 04:48 Procalcitonin 0.09 ng/mL (<0.15) 09/28/20 14:08 Urine Color Yellow (Yellow) 09/29/20 08:00 Urine Turbidity Slightly-cloudy (Clear) 09/29/20 08:00 Urine pH 5.0 (5.0-7.0) 09/29/20 08:00 Ur Specific [place] 1.021 (1.003-1.030) 09/29/20 08:00 Urine Protein 100 mg/dl mg/dL (Negative) 09/29/20 08:00 Urine Glucose (UA) Neg mg/dL (Negative) 09/29/20 08:00 Urine Ketones 20 mg/dL (Negative) 09/29/20 08:00 Urine Blood Lg (Negative) 09/29/20 08:00 Urine Nitrite Neg (Negative) 09/29/20 08:00 Urine Bilirubin Neg (Negative) 09/29/20 08:00 Urine Urobilinogen < 2.0 mg/dL (<2.0) 09/29/20 08:00 Ur Leukocyte Esterase Neg (Negative) 09/29/20 08:00 Urine WBC (Auto) 2.0 /HPF (0.0-6.0) 09/29/20 08:00 Urine RBC (Auto) 89.0 /HPF (0.0-6.0) 09/29/20 08:00 Urine Bacteria (Auto) 1+ /HPF (Negative) 09/29/20 08:00 Urine Mucus Few /HPF 09/29/20 08:00 Coronavirus (PCR) Positive (Negative) A 09/28/20 08:45 Microbiology: Microbiology 09/28/20 14:08 Peripheral/Venous Blood Culture - Preliminary NO GROWTH AFTER 24 HOURS 09/28/20 14:08 Peripheral/Venous Blood Culture - Preliminary NO GROWTH AFTER 24 HOURS Active Medications - Current Medications Current Medications: Generic Name Dose Route Start Last Admin Trade Name Freq PRN Reason Stop Dose Admin Acetaminophen 650 mg 09/28/20 16:30 Acetaminophen 325 Mg Tab PO Q6H PRN Pain, Mild (1-3) Albuterol 2.5 mg 09/28/20 16:30 Albuterol 2.5 Mg/3 Ml Nebu IH Q4HRT PRN Shortness Of Breath Ascorbic Acid 500 mg 09/28/20 22:00 09/29/20 22:38 Ascorbic Acid 500 Mg Tab PO 500 mg BID RENEE Administration Cholecalciferol 1,000 unit 09/29/20 10:00 09/29/20 12:06 Cholecalciferol (Vit D3) 1000 Unit (25 Mcg) Tab PO 1,000 unit QDAY RENEE Administration Heparin Sodium (Porcine) 5,000 unit 09/28/20 22:00 09/29/20 22:48 Heparin 5,000 Unit/1 Ml Vial SUB-Q 5,000 unit Q12HR RENEE Administration Hydromorphone HCl 0.5 mg 09/28/20 16:30 Hydromorphone 1 Mg/1 Ml Inj IV Q12H PRN Pain , Severe (7-10) REMDESIVIR 100 mg/ Sodium 250 mls @ 500 mls/hr 09/30/20 21:00 Chloride IV 10/03/20 21:29 Q24HR@2100 RENEE Methylprednisolone Sodium Succinate 40 mg 09/28/20 22:00 09/30/20 05:49 Methylprednisolone Sod Succinate 40 Mg/1 Ml Inj IV 40 mg Q8HR RENEE Administration Ondansetron HCl 4 mg 09/28/20 16:30 Ondansetron 4 Mg/2 Ml Inj IV Q8H PRN Nausea And Vomiting Oxycodone/Acetaminophen 1 tab 09/28/20 17:00 Oxycodone /Acetaminophen 5-325mg Tab PO Q12H PRN Pain, Moderate (4-6) Sodium Chloride 10 ml 09/28/20 22:00 09/29/20 22:46 Sodium Chloride 0.9% 10 Ml Flush Syringe IV 10 ml BID RENEE Administration Sodium Chloride 10 ml 09/28/20 16:30 Sodium Chloride 0.9% 10 Ml Flush Syringe IV PRN PRN LINE FLUSH Sodium Chloride 50 ml 09/29/20 16:30 09/29/20 16:45 Sodium Chloride 0.9% 50 Ml Ivpb IV 10/03/20 21:01 50 ml Q24HR@2100 RENEE Administration Zinc Sulfate 220 mg 09/28/20 22:00 09/29/20 22:39 Zinc Sulfate 220 Mg Cap PO 220 mg BID RENEE Administration
[2020-09-30] MEDS: ASCORBIC ACID 500 MG TAB PO SCH ×2 (10:44→21:51)
[2020-09-30] MEDS: HEPARIN 5,000 UNIT/1 ML VIAL SUB-Q SCH ×2 (10:44→21:52)
[2020-09-30] MEDS: CHOLECALCIFEROL (VIT D3) 1000 UNIT (25 mcg) TAB PO SCH (10:44)
[2020-09-30] MEDS: ZINC SULFATE 220 MG CAP PO SCH ×2 (10:47→21:51)
--- NOTE | 2020-09-30 15:26 | Consultation ---
History of Present Illness - Reason for Consult Consult date: 09/30/20 - History of Present Illness 65 old man past medical history hypertension, diabetes, obesity presented to the hospital complaining of fatigue, shortness of breath, cough. This began approximately 5 days prior to admission and has been progressively worse since onset. He was initially in the ER 3 days prior and was discharged home. His symptoms continue to worsen. Afebrile since admission with a white count of 4.5. Covid positive. Normal renal function. Procalcitonin normal. Blood cultures no growth so far. Cu rrently on remdesivir and methylprednisolone. On 12 L salter nasal cannula. Imaging personally reviewed: Chest x-ray: Mild patchy bibasilar opacities Review of systems: Deferred to reduce to the risk of transmission of COVID-19 Past History Past Medical History: diabetes, hypertension, other (See HPI) Past Surgical History: No surgical history, Other (Reviewed) Social history: , Lives alone. denies: smoking, alcohol abuse, prescription drug abuse Family history: diabetes, hypertension Medications and Allergies Allergies Allergy/AdvReac Type Severity Reaction Status Date / Time No Known Allergies Allergy Unverified 09/25/20 14:06 Home Medications Medication Instructions Recorded Confirmed Last Taken Type Azithromycin [Zithromax Z-HARMAN] 0 mg PO DAILY #1 tab 09/25/20 Unknown Rx Fluticasone [Flonase] 1 spray NS QDAY #1 bottle 09/25/20 Unknown Rx Empagliflozin/Metformin HCl 1 each PO BID 09/29/20 09/29/20 Unknown History [Synjardy 5-1,000 mg Tablet] Metoprolol [Lopressor] 100 mg PO 09/29/20 Unknown History Olmesartan (Nf) [Benicar (Nf)] 40 mg PO QDAY 09/29/20 09/29/20 Unknown History amLODIPine [Norvasc] 10 mg PO DAILY 09/29/20 09/29/20 Unknown History Active Meds: Active Medications Acetaminophen (Acetaminophen 325 Mg Tab) 650 mg PO Q6H PRN PRN Reason: Pain, Mild (1-3) Albuterol (Albuterol 2.5 Mg/3 Ml Nebu) 2.5 mg IH Q4HRT PRN PRN Reason: Shortness Of Breath Ascorbic Acid (Ascorbic Acid 500 Mg Tab) 500 mg PO BID RENEE Last Admin: 09/30/20 10:44 Dose: 500 mg Documented by: Cholecalciferol (Cholecalciferol (Vit D3) 1000 Unit (25 Mcg) Tab) 1,000 unit PO QDAY [facility] Last Admin: 09/30/20 10:44 Dose: 1,000 unit Documented by: Heparin Sodium (Porcine) (Heparin 5,000 Unit/1 Ml Vial) 5,000 unit SUB-Q Q12HR [facility] Last Admin: 09/30/20 10:44 Dose: 5,000 unit Documented by: Hydromorphone HCl (Hydromorphone 1 Mg/1 Ml Inj) 0.5 mg IV Q12H PRN PRN Reason: Pain , Severe (7-10) REMDESIVIR 100 mg/ Sodium (Chloride) 250 mls @ 500 mls/hr IV Q24HR@2100 [facility] Stop: 10/03/20 21:29 Methylprednisolone Sodium Succinate (Methylprednisolone Sod Succinate 40 Mg/1 Ml Inj) 40 mg IV Q8HR [facility] Last Admin: 09/30/20 14:48 Dose: 40 mg Documented by: Ondansetron HCl (Ondansetron 4 Mg/2 Ml Inj) 4 mg IV Q8H PRN PRN Reason: Nausea And Vomiting Oxycodone/Acetaminophen (Oxycodone /Acetaminophen 5-325mg Tab) 1 tab PO Q12H IN N PRN Reason: Pain, Moderate (4-6) Sodium Chloride (Sodium Chloride 0.9% 10 Ml Flush Syringe) 10 ml IV BID [facility] Last Admin: 09/30/20 10:45 Dose: 10 ml Documented by: Sodium Chloride (Sodium Chloride 0.9% 10 Ml Flush Syringe) 10 ml IV PRN PRN PRN Reason: LINE FLUSH Sodium Chloride (Sodium Chloride 0.9% 50 Ml Ivpb) 50 ml IV Q24HR@2100 [facility] Stop: 10/03/20 21:01 Last Admin: 09/29/20 16:45 Dose: 50 ml Documented by: Zinc Sulfate (Zinc Sulfate 220 Mg Cap) 220 mg PO BID [facility] Last Admin: 09/30/20 10:47 Dose: 220 mg Documented by: Physical Examination - Physical Exam Narrative exam: Physical exam deferred to reduce risk of transmission of COVID-19. Please refer to primary team's note. - Constitutional Vitals: Vital Signs Temp Pulse Resp BP Pulse Ox 98.1 F 102 H 42 H 155/89 96 09/30/20 09:07 09/30/20 15:01 09/30/20 15:01 09/30/20 15:01 09/30/20 15:01 Temperature -Last 24 Hours Temperature 98.1 F Temperature 98.7 F Results - Labs CBC & Chem 7: 09/28/20 14:08 09/30/20 04:48 Labs: Abnormal lab results 09/29/20 09/30/20 Range/Units 16:11 04:48 Creatinine 0.7 L (0.8-1.3) mg/dL Glucose 190 H 203 H (75-100) mg/dL Albumin 3.4 L 3.3 L (3.9-5) g/dL Assessment and Plan Cultures: Blood culture no growth so far Covid PCR: Positive A/P: 65 old man past medical history hypertension, diabetes, obesity admitted with COVID-19 #Severe COVID-19 pneumonia: Patient presented with a week of symptoms, chest x- ray with diffuse bilateral infiltrates, admission O2 sats on room air. Inflammatory markers elevated #Acute hypoxemic respiratory failure: Likely secondary to COVID-19 infection. Currently on 12 L salter nasal cannula #Obesity Recs: -Steroids for 10 days -Remdesivir 200 mg IV q day x 1 followed by 100 mg IV q day x 4 days -Obtain q48-72h inflammatory markers - ferritin, Ddimer, CRP, LDH -Anticoagulation per hospital protocol -Proning as able Thank you for the consult, we will continue to follow. Bharat Zepeda MD [facility] O: [phone] F: [phone]
[2020-09-30] MEDS: REMDESIVIR 100 MG in SODIUM CHLORIDE 0.9% 250ML 250 ML IV SCH (21:50)
[2020-09-30] MEDS: SODIUM CHLORIDE 0.9% 50 ML IVPB IV SCH (21:51)
[2020-10-01] MEDS ORDERED: hydrALAZINE 20 MG/1 ML INJ IV PRN (05:33)
[2020-10-01] MEDS: methylPREDNISolone Sod Succinate 40 MG/1 ML INJ IV SCH ×3 (05:42→21:14)
[2020-10-01 07:08] LABS: Alanine Aminotransferase 50 units/L (7-56); Albumin 3.3 g/dL (3.9-5); Blood Urea Nitrogen 16 mg/dL (9-20); Calcium 9.3 mg/dL (8.4-10.2); Hemolysis Index 7
[2020-10-01 07:11] LABS: BUN/Creatinine Ratio 23
--- NOTE | 2020-10-01 09:54 | Progress Note ---
Assessment and Plan Assessment and plan: Patient did not take COVID-19 vaccine --COVID-19 virus infection Current Visit: Yes Status: Acute Isolation precautions: Contact and droplet Inflammatory markers Patient is hypoxic requiring supplemental oxygen Continue IV Solu-Medrol Started remdesivir Prone positioning Home O2 evaluation at discharge ID consulted Supportive therapy with zinc, vitamin C and vitamin D3 -- Sepsis; due to COVID-19 pneumonia Current Visit: Yes Status: Acute Sepsis protocol: CBC, CMP, chest x-ray, urinalysis, blood culture, IV antibiotic therapy, IV fluid resuscitation therapy, monitor urine output every shift, maintain mean arterial pressure greater than or equal to 65, serial lactic acid level, -- Acute hypoxemic respiratory failure Current Visit: Yes Status: Acute Today patient is on high flow nasal cannula oxygen 35 L/80% FiO2/97% O2 sats Continue remdesivir, Solu-Medrol per guidelines Titrate oxygen more than 90% --Pneumonia; Current Visit: Yes Status: Acute On empiric antibiotics DC antibiotics, procalcitonin is normal range, DC empiric antibiotics --Obesity hypoventilation syndrome Current Visit: Yes Status: Acute Balanced diet, increase physical activity at discharge, outpatient pulmonary follow-up for sleep study --Type II diabetes mellitus Current Visit: Yes Status: Acute Consistent carbohydrate diet, sliding scale insulin therapy, Accu-Chek, hypoglycemia protocol --Obesity; BMI 33.8 Current Visit: Yes Status: Acute -DVT prophylaxis Current Visit: Yes Status: Acute SCD to bilateral lower extremities while in bed, prophylactic anticoagulation --Advance care planning Current Visit: Yes Status: Acute Disease education conducted, care plan discussed, prognosis discussed, diagnoses discussed, patient knowledges understanding and agreement with care plan, patient is full code, +30 minutes. Closely monitor patient and adjust management as needed Plan of care reviewed with the patient and his nurse Consults and recommendations noted and appreciated 09/30/2020; Patient requires 2 L supplemental nasal cannula oxygen On Solu-Medrol, remdesivir, antibiotics DC'd normal procalcitonin Follow ID evaluation recommendation, prone positioning, home O2 evaluation 10/01/2020; 10 L nasal cannula oxygen, prone position 10/02/2020; patient is requiring very high flow oxygen 35 L/80% FiO2/97 O2 sats Wean as tolerated, continue remdesivir and IV steroids ID pulmonary following History Interval history: I have seen and examined the patient at the bedside Patient's chart and medications reviewed Isolation precautions PPE protocol strictly followed per Covid guidelines Patient feels slightly better has mild shortness of breath Requiring high flow oxygen 35 L Patient is in mild distress Vital signs noted Hospitalist Physical - Constitutional Vitals: Temp Pulse Resp BP Pulse Ox 97.8 F 114 H 20 176/106 88 10/01/20 04:02 10/01/20 04:02 10/01/20 04:02 10/01/20 04:02 10/01/20 04:02 General appearance: Present: mild distress, well-nourished, obese - EENT Eyes: Present: PERRL, EOM intact - Neck Neck: Present: supple, normal ROM - Respiratory Respiratory effort: normal Respiratory: bilateral: diminished, negative: rales, rhonchi, wheezing - Cardiovascular Rhythm: regular Heart Sounds: Present: S1 & S2 - Extremities Extremities: no ischemia, No edema - Abdominal General gastrointestinal: soft, non-tender, non-distended, normal bowel sounds - Integumentary Integumentary: Present: clear, warm - Psychiatric Psychiatric: appropriate mood/affect, cooperative - Neurologic Neurologic: CNII-XII intact, moves all extremities Results - Labs CBC & Chem 7: 09/28/20 14:08 10/02/20 05:04 Labs: Laboratory Last Values WBC 4.5 K/mm3 (4.5-11.0) 09/28/20 14:08 RBC 4.91 M/mm3 (3.65-5.03) 09/28/20 14:08 Hgb 15.1 gm/dl (11.8-15.2) 09/28/20 14:08 Hct 45.4 % (35.5-45.6) 09/28/20 14:08 MCV 92 fl (84-94) 09/28/20 14:08 MCH 31 pg (28-32) 09/28/20 14:08 MCHC 33 % (32-34) 09/28/20 14:08 RDW 13.6 % (13.2-15.2) 09/28/20 14:08 Plt Count 234 K/mm3 (140-440) 09/28/20 14:08 Lymph % (Auto) 8.4 % (13.4-35.0) L 09/28/20 14:08 [place] % (Auto) 7.8 % (0.0-7.3) H 09/28/20 14:08 Eos % (Auto) 0.0 % (0.0-4.3) 09/28/20 14:08 Baso % (Auto) 0.1 % (0.0-1.8) 09/28/20 14:08 Lymph # (Auto) 0.4 K/mm3 (1.2-5.4) L 09/28/20 14:08 [place] # (Auto) 0.3 K/mm3 (0.0-0.8) 09/28/20 14:08 Eos # (Auto) 0.0 K/mm3 (0.0-0.4) 09/28/20 14:08 Baso # (Auto) 0.0 K/mm3 (0.0-0.1) 09/28/20 14:08 Seg Neutrophils % 83.7 % (40.0-70.0) H 09/28/20 14:08 Seg Neutrophils # 3.7 K/mm3 (1.8-7.7) 09/28/20 14:08 APTT 28.2 Sec. (24.2-36.6) 09/28/20 14:08 D-Dimer 472.87 ng/mlDDU (0-234) H 09/28/20 14:08 Sodium 137 mmol/L (137-145) 10/01/20 06:07 Potassium 3.9 mmol/L (3.6-5.0) 10/01/20 06:07 Chloride 99.7 mmol/L (98-107) 10/01/20 06:07 Carbon Dioxide 26 mmol/L (22-30) 10/01/20 06:07 Anion Gap 15 mmol/L 10/01/20 06:07 BUN 16 mg/dL (9-20) 10/01/20 06:07 Creatinine 0.7 mg/dL (0.8-1.3) L 10/01/20 06:07 Estimated GFR > 60 ml/min 10/01/20 06:07 BUN/Creatinine Ratio 23 % 10/01/20 06:07 Glucose 257 mg/dL (75-100) H 10/01/20 06:07 Lactic Acid 1.10 mmol/L (0.7-2.0) 09/28/20 23:27 Calcium 9.3 mg/dL (8.4-10.2) 10/01/20 06:07 Ferritin 2520.0 ng/mL (30.0-300.0) H 09/28/20 14:08 Total Bilirubin 0.50 mg/dL (0.1-1.2) 10/01/20 06:07 AST 38 units/L (5-40) 10/01/20 06:07 ALT 50 units/L (7-56) 10/01/20 06:07 Alkaline Phosphatase 82 units/L (35-129) 10/01/20 06:07 Lactate Dehydrogenase 623 units/L (91-180) H 09/28/20 14:08 C-Reactive Protein 8.70 mg/dL (0.00-1.30) H 09/28/20 14:08 Total Protein 6.9 g/dL (6.3-8.2) 10/01/20 06:07 Albumin 3.3 g/dL (3.9-5) L 10/01/20 06:07 Albumin/Globulin Ratio 0.9 % 10/01/20 06:07 Procalcitonin 0.09 ng/mL (<0.15) 09/28/20 14:08 Urine Color Yellow (Yellow) 09/29/20 08:00 Urine Turbidity Slightly-cloudy (Clear) 09/29/20 08:00 Urine pH 5.0 (5.0-7.0) 09/29/20 08:00 Ur Specific [place] 1.021 (1.003-1.030) 09/29/20 08:00 Urine Protein 100 mg/dl mg/dL (Negative) 09/29/20 08:00 Urine Glucose (UA) Neg mg/dL (Negative) 09/29/20 08:00 Urine Ketones 20 mg/dL (Negative) 09/29/20 08:00 Urine Blood Lg (Negative) 09/29/20 08:00 Urine Nitrite Neg (Negative) 09/29/20 08:00 Urine Bilirubin Neg (Negative) 09/29/20 08:00 Urine Urobilinogen < 2.0 mg/dL (<2.0) 09/29/20 08:00 Ur Leukocyte Esterase Neg (Negative) 09/29/20 08:00 Urine WBC (Auto) 2.0 /HPF (0.0-6.0) 09/29/20 08:00 Urine RBC (Auto) 89.0 /HPF (0.0-6.0) 09/29/20 08:00 Urine Bacteria (Auto) 1+ /HPF (Negative) 09/29/20 08:00 Urine Mucus Few /HPF 09/29/20 08:00 Coronavirus (PCR) Positive (Negative) A 09/28/20 08:45 Microbiology: Microbiology 09/28/20 14:08 Peripheral/Venous Blood Culture - Preliminary NO GROWTH AFTER 48 HOURS 09/28/20 14:08 Peripheral/Venous Blood Culture - Preliminary NO GROWTH AFTER 48 HOURS Mcguire/IV: Voiding Method Urinal Active Medications - Current Medications Current Medications: Generic Name Dose Route Start Last Admin Trade Name Freq PRN Reason Stop Dose Admin Acetaminophen 650 mg 09/28/20 16:30 Acetaminophen 325 Mg Tab PO Q6H PRN Pain, Mild (1-3) Albuterol 2.5 mg 09/28/20 16:30 Albuterol 2.5 Mg/3 Ml Nebu IH Q4HRT PRN Shortness Of Breath Ascorbic Acid 500 mg 09/28/20 22:00 09/30/20 21:51 Ascorbic Acid 500 Mg Tab PO 500 mg BID RENEE Administration Cholecalciferol 1,000 unit 09/29/20 10:00 09/30/20 10:44 Cholecalciferol (Vit D3) 1000 Unit (25 Mcg) Tab PO 1,000 unit QDAY RENEE Administration Heparin Sodium (Porcine) 5,000 unit 09/28/20 22:00 09/30/20 21:52 Heparin 5,000 Unit/1 Ml Vial SUB-Q 5,000 unit Q12HR RENEE Administration Hydralazine HCl 10 mg 10/01/20 05:33 10/01/20 05:42 Hydralazine 20 Mg/1 Ml Inj IV 10 mg Q6HR PRN Administration Hypertension Hydromorphone HCl 0.5 mg 09/28/20 16:30 Hydromorphone 1 Mg/1 Ml Inj IV Q12H PRN Pain , Severe (7-10) REMDESIVIR 100 mg/ Sodium 250 mls @ 500 mls/hr 09/30/20 21:00 09/30/20 21:50 Chloride IV 10/03/20 21:29 500 mls/hr Q24HR@2100 RENEE Administration Methylprednisolone Sodium Succinate 40 mg 09/28/20 22:00 10/01/20 05:42 Methylprednisolone Sod Succinate 40 Mg/1 Ml Inj IV 40 mg Q8HR RENEE Administration Ondansetron HCl 4 mg 09/28/20 16:30 Ondansetron 4 Mg/2 Ml Inj IV Q8H PRN Nausea And Vomiting Oxycodone/Acetaminophen 1 tab 09/28/20 17:00 Oxycodone /Acetaminophen 5-325mg Tab PO Q12H PRN Pain, Moderate (4-6) Sodium Chloride 10 ml 09/28/20 22:00 09/30/20 21:52 Sodium Chloride 0.9% 10 Ml Flush Syringe IV 10 ml BID RENEE Administration Sodium Chloride 10 ml 09/28/20 16:30 Sodium Chloride 0.9% 10 Ml Flush Syringe IV PRN PRN LINE FLUSH Sodium Chloride 50 ml 09/29/20 16:30 09/30/20 21:51 Sodium Chloride 0.9% 50 Ml Ivpb IV 10/03/20 21:01 50 ml Q24HR@2100 RENEE Administration Zinc Sulfate 220 mg 09/28/20 22:00 09/30/20 21:51 Zinc Sulfate 220 Mg Cap PO 220 mg BID RENEE Administration
[2020-10-01] MEDS: CHOLECALCIFEROL (VIT D3) 1000 UNIT (25 mcg) TAB PO SCH (10:04)
[2020-10-01] MEDS: HEPARIN 5,000 UNIT/1 ML VIAL SUB-Q SCH ×2 (10:04→21:15)
[2020-10-01] MEDS: ZINC SULFATE 220 MG CAP PO SCH ×2 (10:04→21:14)
[2020-10-01] MEDS: ASCORBIC ACID 500 MG TAB PO SCH ×2 (10:07→21:14)
--- NOTE | 2020-10-01 14:27 | Progress Note ---
Assessment and Plan Cultures: Blood culture no growth so far Covid PCR: Positive A/P: 65 old man past medical history hypertension, diabetes, obesity admitted with COVID-19 #Severe COVID-19 pneumonia: Patient presented with a week of symptoms, chest x- ray with diffuse bilateral infiltrates, admission O2 sats on room air. Inflammatory markers elevated #Acute hypoxemic respiratory failure: Likely secondary to COVID-19 infection. Currently on 10 L [place] nasal cannula #Obesity Recs: -Steroids for 10 days -Remdesivir 200 mg IV q day x 1 followed by 100 mg IV q day x 4 days -Obtain q48-72h inflammatory markers - ferritin, Ddimer, CRP, LDH -Anticoagulation per hospital protocol -Proning as able Thank you for the consult, we will continue to follow. Bharat Zepeda MD [facility] ([facility]) O: [phone] F: [phone] Subjective Date of service: 10/01/20 Interval history: Afebrile, no acute change. On 10 L nasal cannula. Objective - Exam Narrative Exam: Physical exam deferred to reduce risk of transmission of COVID-19. Please refer to primary team's note. - Constitutional Vitals: Vital Signs Temp Pulse Resp BP Pulse Ox 97.8 F 114 H 20 176/106 88 10/01/20 04:02 10/01/20 04:02 10/01/20 04:02 10/01/20 04:02 10/01/20 10:11 Temperature -Last 24 Hours Temperature 97.8 F Temperature 98.0 F - Labs CBC & Chem 7: 09/28/20 14:08 10/01/20 06:07 Labs: Abnormal lab results 10/01/20 10/01/20 10/01/20 Range/Units 06:07 13:14 13:14 D-Dimer 986.83 H (0-234) ng/mlDDU Creatinine 0.7 L (0.8-1.3) mg/dL Glucose 257 H (75-100) mg/dL Lactate Dehydrogenase 574 H (91-180) units/L Albumin 3.3 L (3.9-5) g/dL
[2020-10-01] MEDS: REMDESIVIR 100 MG in SODIUM CHLORIDE 0.9% 250ML 250 ML IV SCH (21:13)
[2020-10-01] MEDS: SODIUM CHLORIDE 0.9% 50 ML IVPB IV SCH (21:13)
[2020-10-02] MEDS: methylPREDNISolone Sod Succinate 40 MG/1 ML INJ IV SCH ×3 (06:00→22:20)
[2020-10-02 07:03] LABS: Alanine Aminotransferase 104 units/L (7-56); Albumin 3.1 g/dL (3.9-5); BUN/Creatinine Ratio 20; Blood Urea Nitrogen 16 mg/dL (9-20); Calcium 8.5 mg/dL (8.4-10.2); Hemolysis Index 5
--- NOTE | 2020-10-02 10:04 | Progress Note ---
Assessment and Plan Assessment and plan: Patient did not take COVID-19 vaccine Patient remains on high flow nasal cannula oxygen 35 L/80% FiO2/O2 sats 97% patient is in mild distress --COVID-19 virus infection Current Visit: Yes Status: Acute Isolation precautions: Contact and droplet Inflammatory markers Patient is hypoxic requiring supplemental oxygen Continue IV Solu-Medrol Started remdesivir Prone positioning Home O2 evaluation at discharge ID consulted Supportive therapy with zinc, vitamin C and vitamin D3 -- Sepsis; due to COVID-19 pneumonia Current Visit: Yes Status: Acute Sepsis protocol: CBC, CMP, chest x-ray, urinalysis, blood culture, IV antibiotic therapy, IV fluid resuscitation therapy, monitor urine output every shift, maintain mean arterial pressure greater than or equal to 65, serial lactic acid level, -- Acute hypoxemic respiratory failure Current Visit: Yes Status: Acute Patient is on 12 L supplemental oxygen, BiPAP as needed --Pneumonia; Current Visit: Yes Status: Acute On empiric antibiotics DC antibiotics, procalcitonin is normal range, DC empiric antibiotics --Obesity hypoventilation syndrome Current Visit: Yes Status: Acute Balanced diet, increase physical activity at discharge, outpatient pulmonary follow-up for sleep study --Type II diabetes mellitus Current Visit: Yes Status: Acute Consistent carbohydrate diet, sliding scale insulin therapy, Accu-Chek, hypoglycemia protocol --Obesity; BMI 33.8 Current Visit: Yes Status: Acute -DVT prophylaxis Current Visit: Yes Status: Acute SCD to bilateral lower extremities while in bed, prophylactic anticoagulation --Advance care planning Current Visit: Yes Status: Acute Disease education conducted, care plan discussed, prognosis discussed, diagnoses discussed, patient knowledges understanding and agreement with care plan, patient is full code, +30 minutes. Closely monitor patient and adjust management as needed Plan of care reviewed with the patient and his nurse Consults and recommendations noted and appreciated 09/30/2020; Patient requires 2 L supplemental nasal cannula oxygen On Solu-Medrol, remdesivir, antibiotics DC'd normal procalcitonin Follow ID evaluation recommendation, prone positioning, home O2 evaluation 10/01/2020; 10 L nasal cannula oxygen, prone position 10/02/2020; on high flow oxygen 35 L/80% FiO2/97 O2 sats History Interval history: I have seen and examined the patient at the bedside Patient's chart and medications reviewed Patient is on high flow nasal cannula oxygen In mild distress Hospitalist Physical - Constitutional Vitals: Temp Pulse Resp BP Pulse Ox 97.5 F L 108 H 18 146/93 97 10/02/20 05:50 10/02/20 05:50 10/02/20 07:30 10/02/20 05:50 10/02/20 08:00 General appearance: Present: mild distress, well-nourished, obese - EENT Eyes: Present: PERRL, EOM intact - Neck Neck: Present: supple, normal ROM - Respiratory Respiratory effort: normal Respiratory: bilateral: diminished, rhonchi, negative: rales, wheezing - Cardiovascular Rhythm: regular Heart Sounds: Present: S1 & S2 - Extremities Extremities: no ischemia, No edema - Abdominal General gastrointestinal: soft, non-tender, non-distended, normal bowel sounds - Integumentary Integumentary: Present: clear, warm - Psychiatric Psychiatric: appropriate mood/affect, cooperative - Neurologic Neurologic: moves all extremities Results - Labs CBC & Chem 7: 09/28/20 14:08 10/02/20 05:04 Labs: Laboratory Last Values WBC 4.5 K/mm3 (4.5-11.0) 09/28/20 14:08 RBC 4.91 M/mm3 (3.65-5.03) 09/28/20 14:08 Hgb 15.1 gm/dl (11.8-15.2) 09/28/20 14:08 Hct 45.4 % (35.5-45.6) 09/28/20 14:08 MCV 92 fl (84-94) 09/28/20 14:08 MCH 31 pg (28-32) 09/28/20 14:08 MCHC 33 % (32-34) 09/28/20 14:08 RDW 13.6 % (13.2-15.2) 09/28/20 14:08 Plt Count 234 K/mm3 (140-440) 09/28/20 14:08 Lymph % (Auto) 8.4 % (13.4-35.0) L 09/28/20 14:08 [place] % (Auto) 7.8 % (0.0-7.3) H 09/28/20 14:08 Eos % (Auto) 0.0 % (0.0-4.3) 09/28/20 14:08 Baso % (Auto) 0.1 % (0.0-1.8) 09/28/20 14:08 Lymph # (Auto) 0.4 K/mm3 (1.2-5.4) L 09/28/20 14:08 [place] # (Auto) 0.3 K/mm3 (0.0-0.8) 09/28/20 14:08 Eos # (Auto) 0.0 K/mm3 (0.0-0.4) 09/28/20 14:08 Baso # (Auto) 0.0 K/mm3 (0.0-0.1) 09/28/20 14:08 Seg Neutrophils % 83.7 % (40.0-70.0) H 09/28/20 14:08 Seg Neutrophils # 3.7 K/mm3 (1.8-7.7) 09/28/20 14:08 APTT 28.2 Sec. (24.2-36.6) 09/28/20 14:08 D-Dimer 986.83 ng/mlDDU (0-234) H 10/01/20 13:14 Sodium 130 mmol/L (137-145) L D 10/02/20 05:04 Potassium 3.8 mmol/L (3.6-5.0) 10/02/20 05:04 Chloride 96.1 mmol/L (98-107) L 10/02/20 05:04 Carbon Dioxide 26 mmol/L (22-30) 10/02/20 05:04 Anion Gap 12 mmol/L 10/02/20 05:04 BUN 16 mg/dL (9-20) 10/02/20 05:04 Creatinine 0.8 mg/dL (0.8-1.3) 10/02/20 05:04 Estimated GFR > 60 ml/min 10/02/20 05:04 BUN/Creatinine Ratio 20 % 10/02/20 05:04 Glucose 282 mg/dL (75-100) H 10/02/20 05:04 Lactic Acid 1.10 mmol/L (0.7-2.0) 09/28/20 23:27 Calcium 8.5 mg/dL (8.4-10.2) 10/02/20 05:04 Ferritin 1649.0 ng/mL (30.0-300.0) H 10/01/20 13:14 Total Bilirubin 0.60 mg/dL (0.1-1.2) 10/02/20 05:04 AST 50 units/L (5-40) H 10/02/20 05:04 ALT 104 units/L (7-56) H 10/02/20 05:04 Alkaline Phosphatase 90 units/L (35-129) 10/02/20 05:04 Lactate Dehydrogenase 574 units/L (91-180) H 10/01/20 13:14 C-Reactive Protein 1.00 mg/dL (0.00-1.30) 10/01/20 13:14 Total Protein 6.4 g/dL (6.3-8.2) 10/02/20 05:04 Albumin 3.1 g/dL (3.9-5) L 10/02/20 05:04 Albumin/Globulin Ratio 0.9 % 10/02/20 05:04 Procalcitonin 0.09 ng/mL (<0.15) 09/28/20 14:08 Urine Color Yellow (Yellow) 09/29/20 08:00 Urine Turbidity Slightly-cloudy (Clear) 09/29/20 08:00 Urine pH 5.0 (5.0-7.0) 09/29/20 08:00 Ur Specific [place] 1.021 (1.003-1.030) 09/29/20 08:00 Urine Protein 100 mg/dl mg/dL (Negative) 09/29/20 08:00 Urine Glucose (UA) Neg mg/dL (Negative) 09/29/20 08:00 Urine Ketones 20 mg/dL (Negative) 09/29/20 08:00 Urine Blood Lg (Negative) 09/29/20 08:00 Urine Nitrite Neg (Negative) 09/29/20 08:00 Urine Bilirubin Neg (Negative) 09/29/20 08:00 Urine Urobilinogen < 2.0 mg/dL (<2.0) 09/29/20 08:00 Ur Leukocyte Esterase Neg (Negative) 09/29/20 08:00 Urine WBC (Auto) 2.0 /HPF (0.0-6.0) 09/29/20 08:00 Urine RBC (Auto) 89.0 /HPF (0.0-6.0) 09/29/20 08:00 Urine Bacteria (Auto) 1+ /HPF (Negative) 09/29/20 08:00 Urine Mucus Few /HPF 09/29/20 08:00 Coronavirus (PCR) Positive (Negative) A 09/28/20 08:45 Microbiology: Microbiology 09/28/20 14:08 Peripheral/Venous Blood Culture - Preliminary NO GROWTH AFTER 72 HOURS 09/28/20 14:08 Peripheral/Venous Blood Culture - Preliminary NO GROWTH AFTER 72 HOURS Mcguire/IV: Voiding Method Incontinent Active Medications - Current Medications Current Medications: Generic Name Dose Route Start Last Admin Trade Name Freq PRN Reason Stop Dose Admin Acetaminophen 650 mg 09/28/20 16:30 Acetaminophen 325 Mg Tab PO Q6H PRN Pain, Mild (1-3) Albuterol 2.5 mg 09/28/20 16:30 Albuterol 2.5 Mg/3 Ml Nebu IH Q4HRT PRN Shortness Of Breath Ascorbic Acid 500 mg 09/28/20 22:00 10/01/20 21:14 Ascorbic Acid 500 Mg Tab PO 500 mg BID RENEE Administration Cholecalciferol 1,000 unit 09/29/20 10:00 10/01/20 10:04 Cholecalciferol (Vit D3) 1000 Unit (25 Mcg) Tab PO 1,000 unit QDAY RENEE Administration Heparin Sodium (Porcine) 5,000 unit 09/28/20 22:00 10/01/20 21:15 Heparin 5,000 Unit/1 Ml Vial SUB-Q 5,000 unit Q12HR RENEE Administration Hydralazine HCl 10 mg 10/01/20 05:33 10/01/20 05:42 Hydralazine 20 Mg/1 Ml Inj IV 10 mg Q6HR PRN Administration Hypertension Hydromorphone HCl 0.5 mg 09/28/20 16:30 Hydromorphone 1 Mg/1 Ml Inj IV Q12H PRN Pain , Severe (7-10) REMDESIVIR 100 mg/ Sodium 250 mls @ 500 mls/hr 09/30/20 21:00 10/01/20 21:13 Chloride IV 10/03/20 21:29 500 mls/hr Q24HR@2100 RENEE Administration Methylprednisolone Sodium Succinate 40 mg 09/28/20 22:00 10/02/20 06:00 Methylprednisolone Sod Succinate 40 Mg/1 Ml Inj IV 40 mg Q8HR RENEE Administration Ondansetron HCl 4 mg 09/28/20 16:30 Ondansetron 4 Mg/2 Ml Inj IV Q8H PRN Nausea And Vomiting Oxycodone/Acetaminophen 1 tab 09/28/20 17:00 Oxycodone /Acetaminophen 5-325mg Tab PO Q12H PRN Pain, Moderate (4-6) Sodium Chloride 10 ml 09/28/20 22:00 10/01/20 21:13 Sodium Chloride 0.9% 10 Ml Flush Syringe IV 10 ml BID RENEE Administration Sodium Chloride 10 ml 09/28/20 16:30 Sodium Chloride 0.9% 10 Ml Flush Syringe IV PRN PRN LINE FLUSH Sodium Chloride 50 ml 09/29/20 16:30 10/01/20 21:13 Sodium Chloride 0.9% 50 Ml Ivpb IV 10/03/20 21:01 50 ml Q24HR@2100 RENEE Administration Zinc Sulfate 220 mg 09/28/20 22:00 10/01/20 21:14 Zinc Sulfate 220 Mg Cap PO 220 mg BID RENEE Administration
[2020-10-02] MEDS: ZINC SULFATE 220 MG CAP PO SCH ×2 (10:44→22:21)
[2020-10-02] MEDS: HEPARIN 5,000 UNIT/1 ML VIAL SUB-Q SCH ×2 (10:44→22:19)
[2020-10-02] MEDS: CHOLECALCIFEROL (VIT D3) 1000 UNIT (25 mcg) TAB PO SCH (10:44)
[2020-10-02] MEDS: ASCORBIC ACID 500 MG TAB PO SCH ×2 (10:44→22:21)
--- NOTE | 2020-10-02 11:05 | Progress Note ---
Assessment and Plan Cultures: Blood culture no growth so far Covid PCR: Positive A/P: 65 old man past medical history hypertension, diabetes, obesity admitted with COVID-19 #Severe COVID-19 pneumonia: Patient presented with a week of symptoms, chest x- ray with diffuse bilateral infiltrates. Inflammatory markers elevated #Acute hypoxemic respiratory failure: Likely secondary to COVID-19 infection. Currently on 35L/min HFNC #Obesity Recs: -On high dose methylpred, recommend de-escalating dose after 5 days. Complete 10 days steroids. -Remdesivir D4 of 5. Monitor liver function while receiving. -Normal CRP, not an Actemra candidate at present. -Obtain q48-72h inflammatory markers - ferritin, Ddimer, CRP, LDH -Anticoagulation per hospital protocol -Proning as able Thank you for the consult, we will continue to follow. Dr. Marquez covering this weekend. Dr. Kline taking over Monday. Bharat Zepeda MD [facility] ([facility]) O: [phone] F: [phone] Subjective Date of service: 10/02/20 Interval history: Afebrile, normal white count. Worsening O2 status, now requiring 35L/min HFNC. Objective - Exam Narrative Exam: Physical exam deferred to reduce risk of transmission of COVID-19. Please refer to primary team's note. - Constitutional Vitals: Vital Signs Temp Pulse Resp BP Pulse Ox 97.5 F L 108 H 18 146/93 97 10/02/20 05:50 10/02/20 05:50 10/02/20 07:30 10/02/20 05:50 10/02/20 08:00 Temperature -Last 24 Hours Temperature 97.5 F Temperature 97.7 F - Labs CBC & Chem 7: 09/28/20 14:08 10/02/20 05:04 Labs: Abnormal lab results 10/01/20 10/01/20 10/01/20 Range/Units 13:14 13:14 13:14 D-Dimer 986.83 H (0-234) ng/mlDDU Sodium (137-145) mmol/L Chloride (98-107) mmol/L Glucose (75-100) mg/dL Ferritin 1649.0 H (30.0-300.0) ng/mL AST (5-40) units/L ALT (7-56) units/L Lactate Dehydrogenase 574 H (91-180) units/L Albumin (3.9-5) g/dL 10/02/20 Range/Units 05:04 D-Dimer (0-234) ng/mlDDU Sodium 130 L D (137-145) mmol/L Chloride 96.1 L (98-107) mmol/L Glucose 282 H (75-100) mg/dL Ferritin (30.0-300.0) ng/mL AST 50 H (5-40) units/L ALT 104 H (7-56) units/L Lactate Dehydrogenase (91-180) units/L Albumin 3.1 L (3.9-5) g/dL
[2020-10-02] MEDS: SODIUM CHLORIDE 0.9% 50 ML IVPB IV SCH (22:18)
[2020-10-02] MEDS: REMDESIVIR 100 MG in SODIUM CHLORIDE 0.9% 250ML 250 ML IV SCH (22:18)
[2020-10-03] MEDS: methylPREDNISolone Sod Succinate 40 MG/1 ML INJ IV SCH ×3 (06:31→21:26)
--- NOTE | 2020-10-03 08:20 | Progress Note ---
Assessment and Plan Patient did not take COVID-19 vaccine Patient remains on high flow nasal cannula oxygen 35 L/80% FiO2/O2 sats 97% patient is in mild distress --COVID-19 virus infection Current Visit: Yes Status: Acute Isolation precautions: Contact and droplet Inflammatory markers Patient is hypoxic requiring supplemental oxygen Continue IV Solu-Medrol Started remdesivir Prone positioning Home O2 evaluation at discharge Not much improvement at this time. ID consulted Supportive therapy with zinc, vitamin C and vitamin D3 -- Sepsis; due to COVID-19 pneumonia Current Visit: Yes Status: Acute Sepsis protocol: CBC, CMP, chest x-ray, urinalysis, blood culture, IV antibiotic therapy, not much improvement at this time. IV fluid resuscitation therapy, monitor urine output every shift, maintain mean arterial pressure greater than or equal to 65, serial lactic acid level, -- Acute hypoxemic respiratory failure Current Visit: Yes Status: Acute Patient is on 12 L supplemental oxygen, BiPAP as needed --Pneumonia; Current Visit: Yes Status: Acute On empiric antibiotics DC antibiotics, procalcitonin is normal range, DC empiric antibiotics --Obesity hypoventilation syndrome Current Visit: Yes Status: Acute Balanced diet, increase physical activity at discharge, outpatient pulmonary follow-up for sleep study --Type II diabetes mellitus Current Visit: Yes Status: Acute Consistent carbohydrate diet, sliding scale insulin therapy, Accu-Chek, hypoglycemia protocol --Obesity; BMI 33.8 Current Visit: Yes Status: Acute -DVT prophylaxis Current Visit: Yes Status: Acute Subjective Date of service: 10/03/20 Principal diagnosis: COVID-19 pneumonia. Interval history: Patient remains hypoxemic. Difficulty breathing. On 35 L oxygen at this time. Otherwise hemodynamically stable. Objective - Constitutional Vitals: Vital Signs - 12hr 10/02/20 10/02/20 10/03/20 21:29 22:13 02:00 Temperature 98.8 F Pulse Rate 107 H Respiratory 18 Rate Blood Pressure 141/92 O2 Sat by Pulse 95 97 93 Oximetry 10/03/20 04:11 Temperature 98.0 F Pulse Rate 101 H Respiratory 19 Rate Blood Pressure 137/93 O2 Sat by Pulse 94 Oximetry General appearance: Present: no acute distress, well-nourished - EENT Eyes: PERRL, EOM intact ENT: hearing intact, clear oral mucosa Ears: bilateral: normal - Neck Neck: supple, normal ROM - Respiratory Respiratory effort: normal Respiratory: bilateral: CTA, diminished - Breasts Breasts: normal - Cardiovascular Rhythm: regular Heart Sounds: Present: S1 & S2. Absent: gallop, rub Extremities: pulses intact, No edema, normal color, Full ROM - Gastrointestinal General gastrointestinal: Present: soft, non-tender, non-distended, normal bowel sounds - Genitourinary Male genitourinary: normal - Integumentary Integumentary: clear, warm, dry - Musculoskeletal Musculoskeletal: generalized weakness - Neurologic Neurologic: moves all extremities - Psychiatric Psychiatric: memory intact, appropriate mood/affect, intact judgment & insight - Labs CBC & Chem 7: 09/28/20 14:08 10/03/20 08:11
[2020-10-03 09:52] LABS: Alanine Aminotransferase 95 units/L (7-56); Albumin 3.2 g/dL (3.9-5); BUN/Creatinine Ratio 27; Blood Urea Nitrogen 16 mg/dL (9-20); Calcium 8.9 mg/dL (8.4-10.2); Hemolysis Index 30
[2020-10-03] MEDS: HEPARIN 5,000 UNIT/1 ML VIAL SUB-Q SCH ×2 (09:58→21:25)
[2020-10-03] MEDS: CHOLECALCIFEROL (VIT D3) 1000 UNIT (25 mcg) TAB PO SCH (09:58)
[2020-10-03] MEDS: ASCORBIC ACID 500 MG TAB PO SCH ×2 (09:58→21:26)
[2020-10-03] MEDS: ZINC SULFATE 220 MG CAP PO SCH ×2 (10:00→21:31)
[2020-10-03] MEDS: SODIUM CHLORIDE 0.9% 50 ML IVPB IV SCH (21:25)
[2020-10-03] MEDS: REMDESIVIR 100 MG in SODIUM CHLORIDE 0.9% 250ML 250 ML IV SCH (21:25)
[2020-10-04] MEDS: methylPREDNISolone Sod Succinate 40 MG/1 ML INJ IV SCH ×3 (06:11→21:17)
[2020-10-04 07:43] LABS: Alanine Aminotransferase 78 units/L (7-56); Blood Urea Nitrogen 13 mg/dL (9-20); Calcium 8.7 mg/dL (8.4-10.2); Hemolysis Index 16
[2020-10-04 07:47] LABS: BUN/Creatinine Ratio 22
[2020-10-04] MEDS: CHOLECALCIFEROL (VIT D3) 1000 UNIT (25 mcg) TAB PO SCH (09:34)
[2020-10-04] MEDS: ASCORBIC ACID 500 MG TAB PO SCH ×2 (09:34→21:18)
[2020-10-04] MEDS: ZINC SULFATE 220 MG CAP PO SCH ×2 (09:35→21:18)
[2020-10-04] MEDS: HEPARIN 5,000 UNIT/1 ML VIAL SUB-Q SCH ×2 (09:35→21:17)
--- NOTE | 2020-10-04 09:58 | Progress Note ---
Assessment and Plan Patient did not take COVID-19 vaccine Patient remains on high flow nasal cannula oxygen 35 L/80% FiO2/O2 sats 97% patient is in mild distress --COVID-19 virus infection Current Visit: Yes Status: Acute Isolation precautions: Contact and droplet Inflammatory markers Patient is hypoxic requiring supplemental oxygen Continue IV Solu-Medrol Started remdesivir Prone positioning Home O2 evaluation at discharge Patient did have improvement. Able to wean from 35 L to 25 L.. ID consulted Supportive therapy with zinc, vitamin C and vitamin D3 -- Sepsis; due to COVID-19 pneumonia Current Visit: Yes Status: Acute Sepsis protocol: CBC, CMP, chest x-ray, urinalysis, blood culture, IV antibiotic therapy, not much improvement at this time. IV fluid resuscitation therapy, monitor urine output every shift, maintain mean arterial pressure greater than or equal to 65, serial lactic acid level, -- Acute hypoxemic respiratory failure Current Visit: Yes Status: Acute Patient is on 12 L supplemental oxygen, BiPAP as needed --Pneumonia; Current Visit: Yes Status: Acute On empiric antibiotics DC antibiotics, procalcitonin is normal range, DC empiric antibiotics --Obesity hypoventilation syndrome Current Visit: Yes Status: Acute Balanced diet, increase physical activity at discharge, outpatient pulmonary follow-up for sleep study --Type II diabetes mellitus Current Visit: Yes Status: Acute Remains uncontrolled secondary to steroids. Advance long-acting insulin. Consistent carbohydrate diet, sliding scale insulin therapy, Accu-Chek, hypoglycemia protocol --Obesity; BMI 33.8 Current Visit: Yes Status: Acute -DVT prophylaxis Current Visit: Yes Status: Acute Subjective Date of service: 10/04/20 Principal diagnosis: COVID-19 pneumonia. Interval history: Patient remains hypoxemic. Has been weaned down however from 35 L to 25 L of O2. We will continue to wean remains on high flow O2 at this time no other concerns. Objective - Constitutional Vitals: Vital Signs - 12hr 10/04/20 10/04/20 10/04/20 03:10 04:25 09:08 Temperature 98.0 F Pulse Rate 90 Respiratory 28 H Rate Blood Pressure 134/81 O2 Sat by Pulse 93 97 98 Oximetry General appearance: Present: no acute distress, well-nourished - EENT Eyes: PERRL, EOM intact ENT: hearing intact, clear oral mucosa Ears: bilateral: normal - Neck Neck: supple, normal ROM - Respiratory Respiratory effort: normal Respiratory: bilateral: CTA - Breasts Breasts: normal - Cardiovascular Rhythm: regular Heart Sounds: Present: S1 & S2. Absent: gallop, rub Extremities: pulses intact, No edema, normal color, Full ROM - Gastrointestinal General gastrointestinal: Present: soft, non-tender, non-distended, normal bowel sounds - Genitourinary Male genitourinary: normal - Integumentary Integumentary: clear, warm, dry - Musculoskeletal Musculoskeletal: 1, strength equal bilaterally - Neurologic Neurologic: moves all extremities - Psychiatric Psychiatric: memory intact, appropriate mood/affect, intact judgment & insight - Labs CBC & Chem 7: 09/28/20 14:08 10/04/20 07:03 Labs: Abnormal lab results 10/04/20 Range/Units 07:03 Sodium 134 L (137-145) mmol/L Chloride 96.7 L (98-107) mmol/L Creatinine 0.6 L (0.8-1.3) mg/dL Glucose 273 H (75-100) mg/dL ALT 78 H (7-56) units/L Total Protein 5.3 L (6.3-8.2) g/dL Albumin 3.0 L (3.9-5) g/dL
[2020-10-04] MEDS: INSULIN GLARGINE 100 UNITS/ML SUB-Q SCH (21:17)
[2020-10-05] MEDS: methylPREDNISolone Sod Succinate 40 MG/1 ML INJ IV SCH ×3 (06:01→21:28)
--- NOTE | 2020-10-05 08:21 | Progress Note ---
Assessment and Plan Patient did not take COVID-19 vaccine Patient remains on high flow nasal cannula oxygen weaned down to 30 L/FiO2 weaned from 80-60/O2 sats 97% patient is in mild distress --COVID-19 virus infection Current Visit: Yes Status: Acute Isolation precautions: Contact and droplet Inflammatory markers Patient is hypoxic requiring supplemental oxygen Continue IV Solu-Medrol Started remdesivir complete Prone positioning Home O2 evaluation at discharge Patient did have improvement. Able to wean from 35 L to 25 L.. ID consulted Supportive therapy with zinc, vitamin C and vitamin D3 -- Sepsis; due to COVID-19 pneumonia Current Visit: Yes Status: Acute Sepsis protocol: CBC, CMP, chest x-ray, urinalysis, blood culture, IV antibiotic therapy, not much improvement at this time. IV fluid resuscitation therapy, monitor urine output every shift, maintain mean arterial pressure greater than or equal to 65, serial lactic acid level, -- Acute hypoxemic respiratory failure Current Visit: Yes Status: Acute Patient is on 12 L supplemental oxygen, BiPAP as needed --Pneumonia; Current Visit: Yes Status: Acute On empiric antibiotics DC antibiotics, procalcitonin is normal range, DC empiric antibiotics --Obesity hypoventilation syndrome Current Visit: Yes Status: Acute Balanced diet, increase physical activity at discharge, outpatient pulmonary follow-up for sleep study --Type II diabetes mellitus Current Visit: Yes Status: Acute Remains uncontrolled secondary to steroids. Advance long-acting insulin. Consistent carbohydrate diet, sliding scale insulin therapy, Accu-Chek, hypoglycemia protocol --Obesity; BMI 33.8 Current Visit: Yes Status: Acute -DVT prophylaxis Current Visit: Yes Status: Acute Subjective Date of service: 10/05/20 Principal diagnosis: COVID-19 pneumonia. Interval history: Patient remains hypoxemic. Has been weaned down however from 35 L to 25 L of O2. We will continue to wean remains on high flow O2 at this time no other concerns. Patient remains on high flow O2. FiO2 decreased from 65-60 now. Patient remains on 30 L at this time Hospital course unremarkable COVID-19 pneumonia. Objective - Constitutional Vitals: Vital Signs - 12hr 10/04/20 10/05/20 10/05/20 21:27 01:16 05:11 Temperature 98.4 F 98.3 F Pulse Rate 92 H 98 H Respiratory 18 20 Rate Blood Pressure 132/78 141/83 O2 Sat by Pulse 94 96 94 Oximetry General appearance: Present: no acute distress - EENT Eyes: PERRL, EOM intact - Respiratory Respiratory: bilateral: diminished, rhonchi - Cardiovascular Rhythm: regular Heart Sounds: Present: S1 & S2. Absent: gallop, rub Extremities: pulses intact, No edema, normal color, Full ROM - Gastrointestinal General gastrointestinal: Present: soft, non-tender, non-distended, normal bowel sounds - Musculoskeletal Musculoskeletal: generalized weakness - Neurologic Neurologic: moves all extremities - Psychiatric Psychiatric: memory intact, appropriate mood/affect, intact judgment & insight - Labs CBC & Chem 7: 09/28/20 14:08 10/04/20 07:03
[2020-10-05] MEDS: HEPARIN 5,000 UNIT/1 ML VIAL SUB-Q SCH ×2 (09:35→21:28)
[2020-10-05] MEDS: ASCORBIC ACID 500 MG TAB PO SCH ×2 (09:35→21:28)
[2020-10-05] MEDS: ZINC SULFATE 220 MG CAP PO SCH ×2 (09:35→21:29)
[2020-10-05] MEDS: CHOLECALCIFEROL (VIT D3) 1000 UNIT (25 mcg) TAB PO SCH (09:35)
--- NOTE | 2020-10-05 14:55 | Progress Note ---
Assessment and Plan Cultures: Blood culture no growth so far Covid PCR: Positive A/P: 65 old male with past medical history hypertension, diabetes, obesity admitted with COVID-19 #Severe COVID-19 pneumonia: Patient presented with a week of symptoms, chest x- ray with diffuse bilateral infiltrates. Inflammatory markers elevated #Acute hypoxemic respiratory failure: secondary to COVID-19 infection. Currently on HFNC #Obesity Recs: -continue steroids x 10 days, taper given higher dose -Normal CRP, not an Actemra candidate -Completed Remdesivir -Continue oxygen weaning as tolerated -Anticoagulation per protocol based on D-dimer Walter Kline MD, FACP [facility] ([facility] O: [phone] F: [phone] Subjective Date of service: 10/05/20 Principal diagnosis: COVID-19 pneumonia. Interval history: Afebrile. Remains on high flow nasal cannula. Objective - Exam Narrative Exam: Physical Exam (reviewed in chart to minimize risk of transmission) Constitutional: deferred Head, Ears, Nose: deferred Eyes: deferred Neck: deferred Oral: deferred Cardiovascular: deferred Respiratory: deferred GI: deferred Musculoskeletal: deferred Skin: deferred Hem/Lymphatic: deferred Psych: deferred Neurological: deferred - Constitutional Vitals: Vital Signs Temp Pulse Resp BP Pulse Ox 98.3 F 98 H 20 141/83 97 10/05/20 05:11 10/05/20 05:11 10/05/20 05:11 10/05/20 05:11 10/05/20 08:00 Temperature -Last 24 Hours Temperature 98.3 F Temperature 98.4 F Temperature 98.4 F - Labs CBC & Chem 7: 09/28/20 14:08 10/04/20 07:03
[2020-10-05] MEDS: INSULIN GLARGINE 100 UNITS/ML SUB-Q SCH (23:18)
[2020-10-06] MEDS: methylPREDNISolone Sod Succinate 40 MG/1 ML INJ IV SCH ×3 (05:38→23:20)
--- NOTE | 2020-10-06 08:57 | Progress Note ---
Assessment and Plan Assessment and plan: 65 old male with past medical history hypertension, diabetes, obesity admitted with COVID-19 Acute hypoxemic respiratory failure Severe COVID-19 pneumonia Morbid obesity Diabetes mellitus type 2 Hypertension 10/06/2020. Continue IV steroids for total of 10 days. Patient with normal CRP therefore not a candidate for Actemra. Patient has completed remdesivir. Patient still with significant oxygen requirements currently on 10 L. ID following. Consider pulmonary consultation if oxygen requirements do not improve. Continue Accu-Cheks and SSRI. Continue antihypertensive medications History Interval history: No new issues overnight. Hospitalist Physical - Constitutional Vitals: Temp Pulse Resp BP Pulse Ox 98.3 F 84 20 141/86 95 10/06/20 05:42 10/06/20 05:42 10/06/20 05:42 10/06/20 05:42 10/06/20 05:42 General appearance: Present: no acute distress - EENT Eyes: Present: PERRL, EOM intact ENT: hearing intact, clear oral mucosa, dentition normal - Neck Neck: Present: supple, normal ROM - Respiratory Respiratory effort: normal Respiratory: bilateral: CTA - Cardiovascular Rhythm: regular Heart Sounds: Present: S1 & S2. Absent: gallop, rub - Extremities Extremities: no ischemia, No edema, Full ROM - Abdominal General gastrointestinal: soft, non-tender, non-distended, normal bowel sounds - Integumentary Integumentary: Present: clear, warm, dry - Neurologic Neurologic: CNII-XII intact, moves all extremities Results - Labs CBC & Chem 7: 09/28/20 14:08 10/04/20 07:03 Labs: Laboratory Last Values WBC 4.5 K/mm3 (4.5-11.0) 09/28/20 14:08 RBC 4.91 M/mm3 (3.65-5.03) 09/28/20 14:08 Hgb 15.1 gm/dl (11.8-15.2) 09/28/20 14:08 Hct 45.4 % (35.5-45.6) 09/28/20 14:08 MCV 92 fl (84-94) 09/28/20 14:08 MCH 31 pg (28-32) 09/28/20 14:08 MCHC 33 % (32-34) 09/28/20 14:08 RDW 13.6 % (13.2-15.2) 09/28/20 14:08 Plt Count 234 K/mm3 (140-440) 09/28/20 14:08 Lymph % (Auto) 8.4 % (13.4-35.0) L 09/28/20 14:08 [place] % (Auto) 7.8 % (0.0-7.3) H 09/28/20 14:08 Eos % (Auto) 0.0 % (0.0-4.3) 09/28/20 14:08 Baso % (Auto) 0.1 % (0.0-1.8) 09/28/20 14:08 Lymph # (Auto) 0.4 K/mm3 (1.2-5.4) L 09/28/20 14:08 [place] # (Auto) 0.3 K/mm3 (0.0-0.8) 09/28/20 14:08 Eos # (Auto) 0.0 K/mm3 (0.0-0.4) 09/28/20 14:08 Baso # (Auto) 0.0 K/mm3 (0.0-0.1) 09/28/20 14:08 Seg Neutrophils % 83.7 % (40.0-70.0) H 09/28/20 14:08 Seg Neutrophils # 3.7 K/mm3 (1.8-7.7) 09/28/20 14:08 APTT 28.2 Sec. (24.2-36.6) 09/28/20 14:08 D-Dimer 986.83 ng/mlDDU (0-234) H 10/01/20 13:14 Sodium 134 mmol/L (137-145) L 10/04/20 07:03 Potassium 4.6 mmol/L (3.6-5.0) 10/04/20 07:03 Chloride 96.7 mmol/L (98-107) L 10/04/20 07:03 Carbon Dioxide 28 mmol/L (22-30) 10/04/20 07:03 Anion Gap 14 mmol/L 10/04/20 07:03 BUN 13 mg/dL (9-20) 10/04/20 07:03 Creatinine 0.6 mg/dL (0.8-1.3) L 10/04/20 07:03 Estimated GFR > 60 ml/min 10/04/20 07:03 BUN/Creatinine Ratio 22 % 10/04/20 07:03 Glucose 273 mg/dL (75-100) H 10/04/20 07:03 POC Glucose 284 mg/dL (70-105) H 10/06/20 07:45 Lactic Acid 1.10 mmol/L (0.7-2.0) 09/28/20 23:27 Calcium 8.7 mg/dL (8.4-10.2) 10/04/20 07:03 Ferritin 1649.0 ng/mL (30.0-300.0) H 10/01/20 13:14 Total Bilirubin 0.50 mg/dL (0.1-1.2) 10/04/20 07:03 AST 21 units/L (5-40) 10/04/20 07:03 ALT 78 units/L (7-56) H 10/04/20 07:03 Alkaline Phosphatase 83 units/L (35-129) 10/04/20 07:03 Lactate Dehydrogenase 574 units/L (91-180) H 10/01/20 13:14 C-Reactive Protein 1.00 mg/dL (0.00-1.30) 10/01/20 13:14 Total Protein 5.3 g/dL (6.3-8.2) L 10/04/20 07:03 Albumin 3.0 g/dL (3.9-5) L 10/04/20 07:03 Albumin/Globulin Ratio 1.3 % 10/04/20 07:03 Procalcitonin 0.09 ng/mL (<0.15) 09/28/20 14:08 Urine Color Yellow (Yellow) 09/29/20 08:00 Urine Turbidity Slightly-cloudy (Clear) 09/29/20 08:00 Urine pH 5.0 (5.0-7.0) 09/29/20 08:00 Ur Specific [place] 1.021 (1.003-1.030) 09/29/20 08:00 Urine Protein 100 mg/dl mg/dL (Negative) 09/29/20 08:00 Urine Glucose (UA) Neg mg/dL (Negative) 09/29/20 08:00 Urine Ketones 20 mg/dL (Negative) 09/29/20 08:00 Urine Blood Lg (Negative) 09/29/20 08:00 Urine Nitrite Neg (Negative) 09/29/20 08:00 Urine Bilirubin Neg (Negative) 09/29/20 08:00 Urine Urobilinogen < 2.0 mg/dL (<2.0) 09/29/20 08:00 Ur Leukocyte Esterase Neg (Negative) 09/29/20 08:00 Urine WBC (Auto) 2.0 /HPF (0.0-6.0) 09/29/20 08:00 Urine RBC (Auto) 89.0 /HPF (0.0-6.0) 09/29/20 08:00 Urine Bacteria (Auto) 1+ /HPF (Negative) 09/29/20 08:00 Urine Mucus Few /HPF 09/29/20 08:00 Coronavirus (PCR) Positive (Negative) A 09/28/20 08:45 [place]/IV: Voiding Method Urinal Active Medications - Current Medications Current Medications: Generic Name Dose Route Start Last Admin Trade Name Freq PRN Reason Stop Dose Admin Acetaminophen 650 mg 09/28/20 16:30 Acetaminophen 325 Mg Tab PO Q6H PRN Pain, Mild (1-3) Albuterol 2.5 mg 09/28/20 16:30 Albuterol 2.5 Mg/3 Ml Nebu IH Q4HRT PRN Shortness Of Breath Ascorbic Acid 500 mg 09/28/20 22:00 10/05/20 21:28 Ascorbic Acid 500 Mg Tab PO 500 mg BID RENEE Administration Cholecalciferol 1,000 unit 09/29/20 10:00 10/05/20 09:35 Cholecalciferol (Vit D3) 1000 Unit (25 Mcg) Tab PO 1,000 unit QDAY RENEE Administration Heparin Sodium (Porcine) 5,000 unit 09/28/20 22:00 10/05/20 21:28 Heparin 5,000 Unit/1 Ml Vial SUB-Q 5,000 unit Q12HR RENEE Administration Hydralazine HCl 10 mg 10/01/20 05:33 10/01/20 05:42 Hydralazine 20 Mg/1 Ml Inj IV 10 mg Q6HR PRN Administration Hypertension Hydromorphone HCl 0.5 mg 09/28/20 16:30 Hydromorphone 1 Mg/1 Ml Inj IV Q12H PRN Pain , Severe (7-10) Insulin Glargine 15 units 10/04/20 22:00 10/05/20 23:18 Insulin Glargine 100 Units/Ml SUB-Q 15 units QHS RENEE Administration Methylprednisolone Sodium Succinate 40 mg 09/28/20 22:00 10/06/20 05:38 Methylprednisolone Sod Succinate 40 Mg/1 Ml Inj IV 40 mg Q8HR RENEE Administration Ondansetron HCl 4 mg 09/28/20 16:30 Ondansetron 4 Mg/2 Ml Inj IV Q8H PRN Nausea And Vomiting Oxycodone/Acetaminophen 1 tab 09/28/20 17:00 Oxycodone /Acetaminophen 5-325mg Tab PO Q12H PRN Pain, Moderate (4-6) Sodium Chloride 10 ml 09/28/20 22:00 10/05/20 21:29 Sodium Chloride 0.9% 10 Ml Flush Syringe IV 10 ml BID RENEE Administration Sodium Chloride 10 ml 09/28/20 16:30 Sodium Chloride 0.9% 10 Ml Flush Syringe IV PRN PRN LINE FLUSH Zinc Sulfate 220 mg 09/28/20 22:00 10/05/20 21:29 Zinc Sulfate 220 Mg Cap PO 220 mg BID RENEE Administration Nutrition/Malnutrition Assess - Dietary Evaluation Nutrition/Malnutrition Findings: Nutrition Notes Start: 10/05/20 12:34 Freq: Status: Active Protocol: Document 10/05/20 12:34 ARNULFO (Rec: 10/05/20 12:37 ARNULFO [id number]) Nutrition Notes Need for Assessment generated from: LOS Initial or Follow up Brief Note Other Pertinent Diagnosis COVID-19 (+) Current Diet Cardiac Height 6 ft 1 in Weight 108.8 kg [place] Body Weight (kg) 83.63 BMI 31.6 Weight Status Obese Subjective/Other Information Pt screened for LOS. He has consumed 90% of meals since admission. Percent of energy/protein needs met: 100% energy 80% pro Burn Absent Trauma Absent Current % PO Good (75-100%) Minimum of two criteria No Is patient on ventilator? No Is Patient Ambulatory and/or Out of Bed No REE-([facility]-confined to bed) 2323.092 Kcal/Kg value to use for calculation 17 Approximate Energy Requirements Using 1850 kcal/Kg Calculation Used for Recommendations Kcal/kg Additional Notes Pro needs 1-1.2g/kg adjBW: 96- 115g/day Fluid needs 1ml/kcal Nutrition Intervention Revisit per MD consult or patient Sign Off request:
[2020-10-06] MEDS: HEPARIN 5,000 UNIT/1 ML VIAL SUB-Q SCH ×2 (11:06→23:19)
[2020-10-06] MEDS: ASCORBIC ACID 500 MG TAB PO SCH ×2 (11:06→23:20)
[2020-10-06] MEDS: ZINC SULFATE 220 MG CAP PO SCH ×2 (11:06→23:20)
[2020-10-06] MEDS: CHOLECALCIFEROL (VIT D3) 1000 UNIT (25 mcg) TAB PO SCH (11:06)
--- NOTE | 2020-10-06 14:36 | Progress Note ---
Assessment and Plan Cultures: Blood culture no growth so far Covid PCR: Positive A/P: 65 old male with past medical history hypertension, diabetes, obesity admitted with COVID-19 #Severe COVID-19 pneumonia: Patient presented with a week of symptoms, chest x- ray with diffuse bilateral infiltrates. Inflammatory markers elevated #Acute hypoxemic respiratory failure: secondary to COVID-19 infection. Currently on HFNC #Obesity Recs: -continue steroids x 10 days, taper given higher dose -Completed Remdesivir -Continue oxygen weaning as tolerated -Anticoagulation per protocol based on D-dimer Walter Kline MD, FACP [facility] O: [phone] F: [phone] Subjective Date of service: 10/06/20 Principal diagnosis: COVID-19 pneumonia. Interval history: Afebrile. Remains on high flow nasal cannula but improving requirements. Objective - Exam Narrative Exam: Physical Exam (reviewed in chart to minimize risk of transmission) Constitutional: deferred Head, Ears, Nose: deferred Eyes: deferred Neck: deferred Oral: deferred Cardiovascular: deferred Respiratory: deferred GI: deferred Musculoskeletal: deferred Skin: deferred Hem/Lymphatic: deferred Psych: deferred Neurological: deferred - Constitutional Vitals: Vital Signs Temp Pulse Resp BP Pulse Ox 98.4 F 89 22 125/76 97 10/06/20 12:12 10/06/20 12:12 10/06/20 12:12 10/06/20 12:12 10/06/20 12:12 Temperature -Last 24 Hours Temperature 98.4 F Temperature 98.3 F Temperature 98.0 F Temperature 98.2 F - Labs CBC & Chem 7: 09/28/20 14:08 10/04/20 07:03 Labs: Abnormal lab results 10/05/20 10/06/20 10/06/20 Range/Units 22:29 07:45 12:09 POC Glucose 315 H 284 H 296 H (70-105) mg/dL
[2020-10-06] MEDS: INSULIN GLARGINE 100 UNITS/ML SUB-Q SCH (23:19)
[2020-10-07] MEDS: methylPREDNISolone Sod Succinate 40 MG/1 ML INJ IV SCH ×3 (05:48→23:39)
--- NOTE | 2020-10-07 07:42 | Progress Note ---
Assessment and Plan Assessment and plan: 65 old male with past medical history hypertension, diabetes, obesity admitted with COVID-19 Acute hypoxemic respiratory failure Severe COVID-19 pneumonia Morbid obesity Diabetes mellitus type 2 Hypertension 10/06/2020. Continue IV steroids for total of 10 days. Patient with normal CRP therefore not a candidate for Actemra. Patient has completed remdesivir. Patient still with significant oxygen requirements currently on 10 L. ID following. Consider pulmonary consultation if oxygen requirements do not improve. Continue Accu-Cheks and SSRI. Continue antihypertensive medications 10/07/2020. Continue IV steroids. Patient has completed remdesivir. Patient still remains on significant oxygen requirements with 10 L. Pulmonary consultation. Prone positioning as possible. Continue Accu-Cheks and SSRI. Continue antihypertensive medications History Interval history: No new issues overnight. Hospitalist Physical - Constitutional Vitals: Temp Pulse Resp BP Pulse Ox 98.3 F 82 18 128/74 96 10/07/20 05:50 10/07/20 05:50 10/07/20 05:50 10/07/20 05:50 10/07/20 05:50 General appearance: Present: no acute distress - EENT Eyes: Present: PERRL, EOM intact ENT: hearing intact, clear oral mucosa, dentition normal - Neck Neck: Present: supple, normal ROM - Respiratory Respiratory effort: normal Respiratory: bilateral: CTA - Cardiovascular Rhythm: regular Heart Sounds: Present: S1 & S2. Absent: gallop, rub - Extremities Extremities: no ischemia, No edema, Full ROM - Abdominal General gastrointestinal: soft, non-tender, non-distended, normal bowel sounds - Integumentary Integumentary: Present: clear, warm, dry - Neurologic Neurologic: CNII-XII intact, moves all extremities Results - Labs CBC & Chem 7: 09/28/20 14:08 10/04/20 07:03 Labs: Laboratory Last Values WBC 4.5 K/mm3 (4.5-11.0) 09/28/20 14:08 RBC 4.91 M/mm3 (3.65-5.03) 09/28/20 14:08 Hgb 15.1 gm/dl (11.8-15.2) 09/28/20 14:08 Hct 45.4 % (35.5-45.6) 09/28/20 14:08 MCV 92 fl (84-94) 09/28/20 14:08 MCH 31 pg (28-32) 09/28/20 14:08 MCHC 33 % (32-34) 09/28/20 14:08 RDW 13.6 % (13.2-15.2) 09/28/20 14:08 Plt Count 234 K/mm3 (140-440) 09/28/20 14:08 Lymph % (Auto) 8.4 % (13.4-35.0) L 09/28/20 14:08 [place] % (Auto) 7.8 % (0.0-7.3) H 09/28/20 14:08 Eos % (Auto) 0.0 % (0.0-4.3) 09/28/20 14:08 Baso % (Auto) 0.1 % (0.0-1.8) 09/28/20 14:08 Lymph # (Auto) 0.4 K/mm3 (1.2-5.4) L 09/28/20 14:08 [place] # (Auto) 0.3 K/mm3 (0.0-0.8) 09/28/20 14:08 Eos # (Auto) 0.0 K/mm3 (0.0-0.4) 09/28/20 14:08 Baso # (Auto) 0.0 K/mm3 (0.0-0.1) 09/28/20 14:08 Seg Neutrophils % 83.7 % (40.0-70.0) H 09/28/20 14:08 Seg Neutrophils # 3.7 K/mm3 (1.8-7.7) 09/28/20 14:08 APTT 28.2 Sec. (24.2-36.6) 09/28/20 14:08 D-Dimer 986.83 ng/mlDDU (0-234) H 10/01/20 13:14 Sodium 134 mmol/L (137-145) L 10/04/20 07:03 Potassium 4.6 mmol/L (3.6-5.0) 10/04/20 07:03 Chloride 96.7 mmol/L (98-107) L 10/04/20 07:03 Carbon Dioxide 28 mmol/L (22-30) 10/04/20 07:03 Anion Gap 14 mmol/L 10/04/20 07:03 BUN 13 mg/dL (9-20) 10/04/20 07:03 Creatinine 0.6 mg/dL (0.8-1.3) L 10/04/20 07:03 Estimated GFR > 60 ml/min 10/04/20 07:03 BUN/Creatinine Ratio 22 % 10/04/20 07:03 Glucose 273 mg/dL (75-100) H 10/04/20 07:03 POC Glucose 334 mg/dL (70-105) H 10/06/20 22:32 Lactic Acid 1.10 mmol/L (0.7-2.0) 09/28/20 23:27 Calcium 8.7 mg/dL (8.4-10.2) 10/04/20 07:03 Ferritin 1649.0 ng/mL (30.0-300.0) H 10/01/20 13:14 Total Bilirubin 0.50 mg/dL (0.1-1.2) 10/04/20 07:03 AST 21 units/L (5-40) 10/04/20 07:03 ALT 78 units/L (7-56) H 10/04/20 07:03 Alkaline Phosphatase 83 units/L (35-129) 10/04/20 07:03 Lactate Dehydrogenase 574 units/L (91-180) H 10/01/20 13:14 C-Reactive Protein 1.00 mg/dL (0.00-1.30) 10/01/20 13:14 Total Protein 5.3 g/dL (6.3-8.2) L 10/04/20 07:03 Albumin 3.0 g/dL (3.9-5) L 10/04/20 07:03 Albumin/Globulin Ratio 1.3 % 10/04/20 07:03 Procalcitonin 0.09 ng/mL (<0.15) 09/28/20 14:08 Urine Color Yellow (Yellow) 09/29/20 08:00 Urine Turbidity Slightly-cloudy (Clear) 09/29/20 08:00 Urine pH 5.0 (5.0-7.0) 09/29/20 08:00 Ur Specific [place] 1.021 (1.003-1.030) 09/29/20 08:00 Urine Protein 100 mg/dl mg/dL (Negative) 09/29/20 08:00 Urine Glucose (UA) Neg mg/dL (Negative) 09/29/20 08:00 Urine Ketones 20 mg/dL (Negative) 09/29/20 08:00 Urine Blood Lg (Negative) 09/29/20 08:00 Urine Nitrite Neg (Negative) 09/29/20 08:00 Urine Bilirubin Neg (Negative) 09/29/20 08:00 Urine Urobilinogen < 2.0 mg/dL (<2.0) 09/29/20 08:00 Ur Leukocyte Esterase Neg (Negative) 09/29/20 08:00 Urine WBC (Auto) 2.0 /HPF (0.0-6.0) 09/29/20 08:00 Urine RBC (Auto) 89.0 /HPF (0.0-6.0) 09/29/20 08:00 Urine Bacteria (Auto) 1+ /HPF (Negative) 09/29/20 08:00 Urine Mucus Few /HPF 09/29/20 08:00 Coronavirus (PCR) Positive (Negative) A 09/28/20 08:45 [place]/IV: Voiding Method Toilet Active Medications - Current Medications Current Medications: Generic Name Dose Route Start Last Admin Trade Name Freq PRN Reason Stop Dose Admin Acetaminophen 650 mg 09/28/20 16:30 Acetaminophen 325 Mg Tab PO Q6H PRN Pain, Mild (1-3) Albuterol 2.5 mg 09/28/20 16:30 Albuterol 2.5 Mg/3 Ml Nebu IH Q4HRT PRN Shortness Of Breath Ascorbic Acid 500 mg 09/28/20 22:00 10/06/20 23:20 Ascorbic Acid 500 Mg Tab PO 500 mg BID RENEE Administration Cholecalciferol 1,000 unit 09/29/20 10:00 10/06/20 11:06 Cholecalciferol (Vit D3) 1000 Unit (25 Mcg) Tab PO 1,000 unit QDAY RENEE Administration Heparin Sodium (Porcine) 5,000 unit 09/28/20 22:00 10/06/20 23:19 Heparin 5,000 Unit/1 Ml Vial SUB-Q 5,000 unit Q12HR RENEE Administration Hydralazine HCl 10 mg 10/01/20 05:33 10/01/20 05:42 Hydralazine 20 Mg/1 Ml Inj IV 10 mg Q6HR PRN Administration Hypertension Hydromorphone HCl 0.5 mg 09/28/20 16:30 Hydromorphone 1 Mg/1 Ml Inj IV Q12H PRN Pain , Severe (7-10) Insulin Glargine 15 units 10/04/20 22:00 10/06/20 23:19 Insulin Glargine 100 Units/Ml SUB-Q 15 units QHS RENEE Administration Methylprednisolone Sodium Succinate 40 mg 09/28/20 22:00 10/07/20 05:48 Methylprednisolone Sod Succinate 40 Mg/1 Ml Inj IV 40 mg Q8HR RENEE Administration Ondansetron HCl 4 mg 09/28/20 16:30 Ondansetron 4 Mg/2 Ml Inj IV Q8H PRN Nausea And Vomiting Oxycodone/Acetaminophen 1 tab 09/28/20 17:00 Oxycodone /Acetaminophen 5-325mg Tab PO Q12H PRN Pain, Moderate (4-6) Sodium Chloride 10 ml 09/28/20 22:00 10/06/20 23:20 Sodium Chloride 0.9% 10 Ml Flush Syringe IV 10 ml BID RENEE Administration Sodium Chloride 10 ml 09/28/20 16:30 Sodium Chloride 0.9% 10 Ml Flush Syringe IV PRN PRN LINE FLUSH Zinc Sulfate 220 mg 09/28/20 22:00 10/06/20 23:20 Zinc Sulfate 220 Mg Cap PO 220 mg BID RENEE Administration Nutrition/Malnutrition Assess - Dietary Evaluation Nutrition/Malnutrition Findings: Nutrition Notes Start: 10/05/20 12:34 Freq: Status: Active Protocol: Document 10/05/20 12:34 ARNULFO (Rec: 10/05/20 12:37 [facility] [id number]) Nutrition Notes Need for Assessment generated from: LOS Initial or Follow up Brief Note Other Pertinent Diagnosis COVID-19 (+) Current Diet Cardiac Height 6 ft 1 in Weight 108.8 kg [place] Body Weight (kg) 83.63 BMI 31.6 Weight Status Obese Subjective/Other Information Pt screened for LOS. He has consumed 90% of meals since admission. Percent of energy/protein needs met: 100% energy 80% pro Burn Absent Trauma Absent Current % PO Good (75-100%) Minimum of two criteria No Is patient on ventilator? No Is Patient Ambulatory and/or Out of Bed No REE-([facility]-confined to bed) 2323.092 Kcal/Kg value to use for calculation 17 Approximate Energy Requirements Using 1850 kcal/Kg Calculation Used for Recommendations Kcal/kg Additional Notes Pro needs 1-1.2g/kg adjBW: 96- 115g/day Fluid needs 1ml/kcal Nutrition Intervention Revisit per MD consult or patient Sign Off request:
[2020-10-07] MEDS: CHOLECALCIFEROL (VIT D3) 1000 UNIT (25 mcg) TAB PO SCH (10:29)
[2020-10-07] MEDS: ASCORBIC ACID 500 MG TAB PO SCH ×2 (10:29→21:42)
[2020-10-07] MEDS: ZINC SULFATE 220 MG CAP PO SCH ×2 (10:29→21:42)
[2020-10-07] MEDS: HEPARIN 5,000 UNIT/1 ML VIAL SUB-Q SCH ×2 (10:29→21:43)
--- NOTE | 2020-10-07 13:39 | Progress Note ---
Assessment and Plan Cultures: Blood culture no growth so far Covid PCR: Positive A/P: 65 old male with past medical history hypertension, diabetes, obesity admitted with COVID-19 #Severe COVID-19 pneumonia: Patient presented with a week of symptoms, chest x- ray with diffuse bilateral infiltrates. Inflammatory markers elevated #Acute hypoxemic respiratory failure: secondary to COVID-19 infection. Currently on HFNC #Obesity Recs: -continue steroids x 10 days, taper given higher dose -Completed Remdesivir -Anticoagulation per protocol based on D-dimer -Rechecking labs tomorrow: CBC, D-dimer, CMP, procalcitonin, CRP Walter Kline MD, FACP [facility] O: [phone] F: [phone] Subjective Date of service: 10/07/20 Principal diagnosis: COVID-19 pneumonia. Interval history: Afebrile. Remains on 10 L/min oxygen. Objective - Exam Narrative Exam: Physical Exam (reviewed in chart to minimize risk of transmission) Constitutional: deferred Head, Ears, Nose: deferred Eyes: deferred Neck: deferred Oral: deferred Cardiovascular: deferred Respiratory: deferred GI: deferred Musculoskeletal: deferred Skin: deferred Hem/Lymphatic: deferred Psych: deferred Neurological: deferred - Constitutional Vitals: Vital Signs Temp Pulse Resp BP Pulse Ox 98.3 F 82 18 128/74 94 10/07/20 05:50 10/07/20 05:50 10/07/20 05:50 10/07/20 05:50 10/07/20 10:27 Temperature -Last 24 Hours Temperature 98.3 F Temperature 97.7 F Temperature 98.2 F - Labs CBC & Chem 7: 09/28/20 14:08 10/04/20 07:03 Labs: Abnormal lab results 10/06/20 10/06/20 10/07/20 Range/Units 17:18 22:32 07:58 POC Glucose 361 H 334 H 274 H (70-105) mg/dL 10/07/20 Range/Units 11:57 POC Glucose 296 H (70-105) mg/dL
--- NOTE | 2020-10-07 14:09 | Consultation ---
History of Present Illness Consult date: 10/07/20 Requesting physician: JNAA MOORE Reason for consult: hypoxemia History of present illness: 65 y/o male admitted on 09/28 with acute respiratory failure secondary to covid pneumonia, remains admitted with persistent although improving respiratory failure. pulmonary consulted for this. Patient initially required salter at 10 liters and progressed up to HFNC at 35 liters and 80% where he spent several days. He is now back down to 10 liter salter where he has been with good sats for the last 48 hours. Patient has finished Remdesivir therapy. He remains on solumedrol 40 q8. I/O if accurate shows a gross positive fluid balance. Remainder is negative. Some documentation of staff encouraging patient to prone. Past History Past Medical History: diabetes, hypertension, other (See HPI) Past Surgical History: No surgical history, Other (Reviewed) Social history: , Lives alone. denies: smoking, alcohol abuse, prescription drug abuse Family history: diabetes, hypertension Medications and Allergies Allergies Allergy/AdvReac Type Severity Reaction Status Date / Time No Known Allergies Allergy Verified 10/01/20 04:13 Home Medications Medication Instructions Recorded Confirmed Last Taken Type Azithromycin [Zithromax Z-HARMAN] 0 mg PO DAILY #1 tab 09/25/20 Unknown Rx Fluticasone [Flonase] 1 spray NS QDAY #1 bottle 09/25/20 Unknown Rx Empagliflozin/Metformin HCl 1 each PO BID 09/29/20 09/29/20 Unknown History [Synjardy 5-1,000 mg Tablet] Metoprolol [Lopressor] 100 mg PO 09/29/20 09/30/20 History 100 mg Olmesartan (Nf) [Benicar (Nf)] 40 mg PO QDAY 09/29/20 09/29/20 Unknown History amLODIPine [Norvasc] 10 mg PO DAILY 09/29/20 09/29/20 Unknown History Active Meds: Active Medications Acetaminophen (Acetaminophen 325 Mg Tab) 650 mg PO Q6H PRN PRN Reason: Pain, Mild (1-3) Albuterol (Albuterol 2.5 Mg/3 Ml Nebu) 2.5 mg IH Q4HRT PRN PRN Reason: Shortness Of Breath Ascorbic Acid (Ascorbic Acid 500 Mg Tab) 500 mg PO BID RENEE Last Admin: 08/18/21 10:29 Dose: 500 mg Documented by: Cholecalciferol (Cholecalciferol (Vit D3) 1000 Unit (25 Mcg) Tab) 1,000 unit PO QDAY [facility] Last Admin: 10/07/20 10:29 Dose: 1,000 unit Documented by: Heparin Sodium (Porcine) (Heparin 5,000 Unit/1 Ml Vial) 5,000 unit SUB-Q Q12HR [facility] Last Admin: 10/07/20 10:29 Dose: 5,000 unit Documented by: Hydralazine HCl (Hydralazine 20 Mg/1 Ml Inj) 10 mg IV Q6HR PRN PRN Reason: Hypertension Last Admin: 10/01/20 05:42 Dose: 10 mg Documented by: Hydromorphone HCl (Hydromorphone 1 Mg/1 Ml Inj) 0.5 mg IV Q12H PRN PRN Reason: Pain , Severe (7-10) Insulin Glargine (Insulin Glargine 100 Units/Ml) 15 units SUB-Q QHS [facility] Last Admin: 10/06/20 23:19 Dose: 15 units Documented by: Insulin Human Regular (Insulin Regular, Human 100 Units/1 Ml) 0 units SUB-Q [facility]; Protocol Methylprednisolone Sodium Succinate (Methylprednisolone Sod Succinate 40 Mg/1 Ml Inj) 40 mg IV Q8HR [facility] Last Admin: 10/07/20 05:48 Dose: 40 mg Documented by: Ondansetron HCl (Ondansetron 4 Mg/2 Ml Inj) 4 mg IV Q8H PRN PRN Reason: Nausea And Vomiting Oxycodone/Acetaminophen (Oxycodone /Acetaminophen 5-325mg Tab) 1 tab PO Q12H PRN PRN Reason: Pain, Moderate (4-6) Sodium Chloride (Sodium Chloride 0.9% 10 Ml Flush Syringe) 10 ml IV BID [facility] Last Admin: 10/07/20 10:30 Dose: 10 ml Documented by: Sodium Chloride (Sodium Chloride 0.9% 10 Ml Flush Syringe) 10 ml IV PRN PRN PRN Reason: LINE FLUSH Zinc Sulfate (Zinc Sulfate 220 Mg Cap) 220 mg PO BID [facility] Last Admin: 10/07/20 10:29 Dose: 220 mg Documented by: Review of Systems All systems: negative Physical Examination Vital signs: Vital Signs Temp Pulse Resp BP Pulse Ox 98.8 F 135 H 30 H 152/85 73 L 09/28/20 12:39 09/28/20 12:39 09/28/20 12:39 09/28/20 12:39 09/28/20 12:39 Results - Laboratory Findings CBC and BMP: 09/28/20 14:08 10/04/20 07:03 PT/INR, D-dimer D-Dimer 986.83 ng/mlDDU (0-234) H 10/01/20 13:14 Abnormal lab findings: Abnormal Labs 09/28/20 09/28/20 09/28/20 08:45 14:08 14:08 Lymph % (Auto) 8.4 L [place] % (Auto) 7.8 H Lymph # (Auto) 0.4 L Seg Neutrophils % 83.7 H D-Dimer 472.87 H Sodium Chloride Creatinine Glucose POC Glucose Ferritin AST ALT Lactate Dehydrogenase C-Reactive Protein Total Protein Albumin Coronavirus (PCR) Positive A 09/28/20 09/28/20 09/29/20 14:08 14:08 16:11 Lymph % (Auto) [place] % (Auto) Lymph # (Auto) Seg Neutrophils % D-Dimer Sodium 136 L Chloride 97.7 L Creatinine Glucose 174 H 190 H POC Glucose Ferritin 2520.0 H AST 43 H ALT Lactate Dehydrogenase 623 H C-Reactive Protein 8.70 H Total Protein Albumin 3.6 L 3.4 L Coronavirus (PCR) 09/30/20 10/01/20 10/01/20 04:48 06:07 13:14 Lymph % (Auto) [place] % (Auto) Lymph # (Auto) Seg Neutrophils % D-Dimer 986.83 H Sodium Chloride Creatinine 0.7 L 0.7 L Glucose 203 H 257 H POC Glucose Ferritin AST ALT Lactate Dehydrogenase C-Reactive Protein Total Protein Albumin 3.3 L 3.3 L Coronavirus (PCR) 10/01/20 10/01/20 10/02/20 13:14 13:14 05:04 Lymph % (Auto) [place] % (Auto) Lymph # (Auto) Seg Neutrophils % D-Dimer Sodium 130 L D Chloride 96.1 L Creatinine Glucose 282 H POC Glucose Ferritin 1649.0 H AST 50 H ALT 104 H Lactate Dehydrogenase 574 H C-Reactive Protein Total Protein Albumin 3.1 L Coronavirus (PCR) 10/03/20 10/04/20 10/05/20 08:11 07:03 22:29 Lymph % (Auto) [place] % (Auto) Lymph # (Auto) Seg Neutrophils % D-Dimer Sodium 131 L 134 L Chloride 93.6 L 96.7 L Creatinine 0.6 L 0.6 L Glucose 277 H 273 H POC Glucose 315 H Ferritin AST ALT 95 H 78 H Lactate Dehydrogenase C-Reactive Protein Total Protein 5.7 L 5.3 L Albumin 3.2 L 3.0 L Coronavirus (PCR) 10/06/20 10/06/20 10/06/20 07:45 12:09 17:18 Lymph % (Auto) [place] % (Auto) Lymph # (Auto) Seg Neutrophils % D-Dimer Sodium Chloride Creatinine Glucose POC Glucose 284 H 296 H 361 H Ferritin AST ALT Lactate Dehydrogenase C-Reactive Protein Total Protein Albumin Coronavirus (PCR) 10/06/20 10/07/20 10/07/20 22:32 07:58 11:57 Lymph % (Auto) [place] % (Auto) Lymph # (Auto) Seg Neutrophils % D-Dimer Sodium Chloride Creatinine Glucose POC Glucose 334 H 274 H 296 H Ferritin AST ALT Lactate Dehydrogenase C-Reactive Protein Total Protein Albumin Coronavirus (PCR) - Diagnostic Findings Chest x-ray: image reviewed Assessment and Plan 65 y/o obese male with acute respiratory failure secondary to COVID pneumonia. 1. Suggest light diuresis. Would start with lasix 20. Needs chemistry drawn in am as last was on 10/04 2. Continue IV steroids until on nasal cannula then can transition to prednisone with prolonged taper 3. Prone as tolerated during the day and sleep prone at night 4. Will continue to follow with you.
[2020-10-07] MEDS ORDERED: FUROSEMIDE 20 MG/2 ML INJ IV NR (14:30)
[2020-10-07] MEDS: INSULIN REGULAR, HUMAN 100 UNITS/1 ML SUB-Q SCH ×2 (16:47→21:56)
[2020-10-07] MEDS: INSULIN GLARGINE 100 UNITS/ML SUB-Q SCH (21:52)
[2020-10-07 22:34] LABS: Blood Urea Nitrogen 23 mg/dL (9-20); Calcium 9.1 mg/dL (8.4-10.2); Hemolysis Index 192
[2020-10-07 22:45] LABS: BUN/Creatinine Ratio 33
[2020-10-08 06:28] LABS: Basophils % (Auto) 0.1 % (0.0-1.8); Eosinophils % (Auto) 0.1 % (0.0-4.3); Hematocrit 41.6 % (35.5-45.6); Hemoglobin 13.9 gm/dl (11.8-15.2); Lymphocytes # (Auto) 0.5 K/mm3 (1.2-5.4); Lymphocytes % (Auto) 4.1 % (13.4-35.0); Mean Corpuscular HGB Conc 33 % (32-34); Mean Corpuscular Volume 92 fl (84-94); Monocytes # (Auto) 1.1 K/mm3 (0.0-0.8); Monocytes % (Auto) 8.2 % (0.0-7.3); Platelet Count 316 K/mm3 (140-440); Red Blood Count 4.54 M/mm3 (3.65-5.03); Red Cell Distribution Width 13.6 % (13.2-15.2)
[2020-10-08 06:40] LABS: Blood Urea Nitrogen 23 mg/dL (9-20); Calcium 9.3 mg/dL (8.4-10.2)
[2020-10-08 06:41] LABS: Alanine Aminotransferase 63 units/L (7-56); Hemolysis Index 4
[2020-10-08 06:45] LABS: BUN/Creatinine Ratio 33
[2020-10-08] MEDS: methylPREDNISolone Sod Succinate 40 MG/1 ML INJ IV SCH ×3 (07:11→21:29)
[2020-10-08] MEDS: INSULIN REGULAR, HUMAN 100 UNITS/1 ML SUB-Q SCH ×4 (07:30→22:00)
--- NOTE | 2020-10-08 10:27 | Progress Note ---
Assessment and Plan Assessment and plan: 65 old male with past medical history hypertension, diabetes, obesity admitted with COVID-19 Acute hypoxemic respiratory failure Severe COVID-19 pneumonia Morbid obesity Diabetes mellitus type 2 Hypertension 10/06/2020. Continue IV steroids for total of 10 days. Patient with normal CRP therefore not a candidate for Actemra. Patient has completed remdesivir. Patient still with significant oxygen requirements currently on 10 L. ID following. Consider pulmonary consultation if oxygen requirements do not improve. Continue Accu-Cheks and SSRI. Continue antihypertensive medications 10/07/2020. Continue IV steroids. Patient has completed remdesivir. Patient still remains on significant oxygen requirements with 10 L. Pulmonary consultation. Prone positioning as possible. Continue Accu-Cheks and SSRI. Continue antihypertensive medications. 10/08/2020. Patient is oxygen has been weaned to 5 L. Continue to wean oxygen as tolerated. Continue IV steroids. Patient has completed remdesivir. Prone positioning as possible. Continue Accu-Cheks and SSRI. Continue antihypertensive medications. History Interval history: No new issues overnight. Hospitalist Physical - Constitutional Vitals: Temp Pulse Resp BP Pulse Ox 98.0 F 89 16 118/74 96 10/08/20 03:59 10/08/20 03:59 10/08/20 03:59 10/08/20 03:59 10/08/20 08:00 General appearance: Present: no acute distress - EENT Eyes: Present: PERRL, EOM intact ENT: hearing intact, clear oral mucosa, dentition normal - Neck Neck: Present: supple, normal ROM - Respiratory Respiratory effort: normal Respiratory: bilateral: CTA - Cardiovascular Rhythm: regular Heart Sounds: Present: S1 & S2. Absent: gallop, rub - Extremities Extremities: no ischemia, No edema, Full ROM - Abdominal General gastrointestinal: soft, non-tender, non-distended, normal bowel sounds - Integumentary Integumentary: Present: clear, warm, dry - Neurologic Neurologic: CNII-XII intact, moves all extremities Results - Labs CBC & Chem 7: 10/08/20 05:41 10/08/20 05:41 Labs: Laboratory Last Values WBC 13.4 K/mm3 (4.5-11.0) H 10/08/20 05:41 RBC 4.54 M/mm3 (3.65-5.03) 10/08/20 05:41 Hgb 13.9 gm/dl (11.8-15.2) 10/08/20 05:41 Hct 41.6 % (35.5-45.6) 10/08/20 05:41 MCV 92 fl (84-94) 10/08/20 05:41 MCH 31 pg (28-32) 10/08/20 05:41 MCHC 33 % (32-34) 10/08/20 05:41 RDW 13.6 % (13.2-15.2) 10/08/20 05:41 Plt Count 316 K/mm3 (140-440) 10/08/20 05:41 Lymph % (Auto) 4.1 % (13.4-35.0) L 10/08/20 05:41 [place] % (Auto) 8.2 % (0.0-7.3) H 10/08/20 05:41 Eos % (Auto) 0.1 % (0.0-4.3) 10/08/20 05:41 Baso % (Auto) 0.1 % (0.0-1.8) 10/08/20 05:41 Lymph # (Auto) 0.5 K/mm3 (1.2-5.4) L 10/08/20 05:41 [place] # (Auto) 1.1 K/mm3 (0.0-0.8) H 10/08/20 05:41 Eos # (Auto) 0.0 K/mm3 (0.0-0.4) 10/08/20 05:41 Baso # (Auto) 0.0 K/mm3 (0.0-0.1) 10/08/20 05:41 Seg Neutrophils % 87.5 % (40.0-70.0) H 10/08/20 05:41 Seg Neutrophils # 11.7 K/mm3 (1.8-7.7) H 10/08/20 05:41 APTT 28.2 Sec. (24.2-36.6) 09/28/20 14:08 D-Dimer 4340.21 ng/mlDDU (0-234) H 10/08/20 05:41 Sodium 129 mmol/L (137-145) L 10/08/20 05:41 Potassium 4.8 mmol/L (3.6-5.0) 10/08/20 05:41 Chloride 93.5 mmol/L (98-107) L 10/08/20 05:41 Carbon Dioxide 28 mmol/L (22-30) 10/08/20 05:41 Anion Gap 12 mmol/L 10/08/20 05:41 BUN 23 mg/dL (9-20) H 10/08/20 05:41 Creatinine 0.7 mg/dL (0.8-1.3) L 10/08/20 05:41 Estimated GFR > 60 ml/min 10/08/20 05:41 BUN/Creatinine Ratio 33 % 10/08/20 05:41 Glucose 317 mg/dL (75-100) H 10/08/20 05:41 POC Glucose 350 mg/dL (70-105) H 10/08/20 09:02 Lactic Acid 1.10 mmol/L (0.7-2.0) 09/28/20 23:27 Calcium 9.3 mg/dL (8.4-10.2) 10/08/20 05:41 Ferritin 1649.0 ng/mL (30.0-300.0) H 10/01/20 13:14 Total Bilirubin 0.50 mg/dL (0.1-1.2) 10/08/20 05:41 AST 17 units/L (5-40) 10/08/20 05:41 ALT 63 units/L (7-56) H 10/08/20 05:41 Alkaline Phosphatase 110 units/L (35-129) 10/08/20 05:41 Lactate Dehydrogenase 574 units/L (91-180) H 10/01/20 13:14 C-Reactive Protein 0.50 mg/dL (0.00-1.30) 10/08/20 05:41 Total Protein 5.8 g/dL (6.3-8.2) L 10/08/20 05:41 Albumin 3.0 g/dL (3.9-5) L 10/08/20 05:41 Albumin/Globulin Ratio 1.1 % 10/08/20 05:41 Procalcitonin 0.10 ng/mL (<0.15) 10/08/20 05:41 Urine Color Yellow (Yellow) 09/29/20 08:00 Urine Turbidity Slightly-cloudy (Clear) 09/29/20 08:00 Urine pH 5.0 (5.0-7.0) 09/29/20 08:00 Ur Specific [place] 1.021 (1.003-1.030) 09/29/20 08:00 Urine Protein 100 mg/dl mg/dL (Negative) 09/29/20 08:00 Urine Glucose (UA) Neg mg/dL (Negative) 09/29/20 08:00 Urine Ketones 20 mg/dL (Negative) 09/29/20 08:00 Urine Blood Lg (Negative) 09/29/20 08:00 Urine Nitrite Neg (Negative) 09/29/20 08:00 Urine Bilirubin Neg (Negative) 09/29/20 08:00 Urine Urobilinogen < 2.0 mg/dL (<2.0) 09/29/20 08:00 Ur Leukocyte Esterase Neg (Negative) 09/29/20 08:00 Urine WBC (Auto) 2.0 /HPF (0.0-6.0) 09/29/20 08:00 Urine RBC (Auto) 89.0 /HPF (0.0-6.0) 09/29/20 08:00 Urine Bacteria (Auto) 1+ /HPF (Negative) 09/29/20 08:00 Urine Mucus Few /HPF 09/29/20 08:00 Coronavirus (PCR) Positive (Negative) A 09/28/20 08:45 [place]gu[place]/IV: Voiding Method Urinal Active Medications - Current Medications Current Medications: Generic Name Dose Route Start Last Admin Trade Name Freq PRN Reason Stop Dose Admin Acetaminophen 650 mg 09/28/20 16:30 Acetaminophen 325 Mg Tab PO Q6H PRN Pain, Mild (1-3) Albuterol 2.5 mg 09/28/20 16:30 Albuterol 2.5 Mg/3 Ml Nebu IH Q4HRT PRN Shortness Of Breath Ascorbic Acid 500 mg 09/28/20 22:00 10/07/20 21:42 Ascorbic Acid 500 Mg Tab PO 500 mg BID RENEE Administration Cholecalciferol 1,000 unit 09/29/20 10:00 10/07/20 10:29 Cholecalciferol (Vit D3) 1000 Unit (25 Mcg) Tab PO 1,000 unit QDAY RENEE Administration Heparin Sodium (Porcine) 5,000 unit 09/28/20 22:00 10/07/20 21:43 Heparin 5,000 Unit/1 Ml Vial SUB-Q 5,000 unit Q12HR RENEE Administration Hydralazine HCl 10 mg 10/01/20 05:33 10/01/20 05:42 Hydralazine 20 Mg/1 Ml Inj IV 10 mg Q6HR PRN Administration Hypertension Hydromorphone HCl 0.5 mg 09/28/20 16:30 Hydromorphone 1 Mg/1 Ml Inj IV Q12H PRN Pain , Severe (7-10) Insulin Glargine 15 units 10/04/20 22:00 10/07/20 21:52 Insulin Glargine 100 Units/Ml SUB-Q 15 units QHS RENEE Administration Insulin Human Regular 0 units 10/07/20 16:30 10/07/20 21:56 Insulin Regular, Human 100 Units/1 Ml SUB-Q 8 units ACHS RENEE Administration Protocol Methylprednisolone Sodium Succinate 40 mg 09/28/20 22:00 10/08/20 07:11 Methylprednisolone Sod Succinate 40 Mg/1 Ml Inj IV 40 mg Q8HR RENEE Administration Ondansetron HCl 4 mg 09/28/20 16:30 Ondansetron 4 Mg/2 Ml Inj IV Q8H PRN Nausea And Vomiting Oxycodone/Acetaminophen 1 tab 09/28/20 17:00 Oxycodone /Acetaminophen 5-325mg Tab PO Q12H PRN Pain, Moderate (4-6) Sodium Chloride 10 ml 09/28/20 22:00 10/07/20 21:44 Sodium Chloride 0.9% 10 Ml Flush Syringe IV 10 ml BID RENEE Administration Sodium Chloride 10 ml 09/28/20 16:30 Sodium Chloride 0.9% 10 Ml Flush Syringe IV PRN PRN LINE FLUSH Zinc Sulfate 220 mg 09/28/20 22:00 10/07/20 21:42 Zinc Sulfate 220 Mg Cap PO 220 mg BID RENEE Administration Nutrition/Malnutrition Assess - Dietary Evaluation Nutrition/Malnutrition Findings: Nutrition Notes Start: 10/05/20 12:34 Freq: Status: Active Protocol: Document 10/05/20 12:34 ARNULFO (Rec: 10/05/20 12:37 ARNULFO [id number]) Nutrition Notes Need for Assessment generated from: LOS Initial or Follow up Brief Note Other Pertinent Diagnosis COVID-19 (+) Current Diet Cardiac Height 6 ft 1 in Weight 108.8 kg [place] Body Weight (kg) 83.63 BMI 31.6 Weight Status Obese Subjective/Other Information Pt screened for LOS. He has consumed 90% of meals since admission. Percent of energy/protein needs met: 100% energy 80% pro Burn Absent Trauma Absent Current % PO Good (75-100%) Minimum of two criteria No Is patient on ventilator? No Is Patient Ambulatory and/or Out of Bed No REE-([place]-confined to bed) 2323.092 Kcal/Kg value to use for calculation 17 Approximate Energy Requirements Using 1850 kcal/Kg Calculation Used for Recommendations Kcal/kg Additional Notes Pro needs 1-1.2g/kg adjBW: 96- 115g/day Fluid needs 1ml/kcal Nutrition Intervention Revisit per MD consult or patient Sign Off request:
[2020-10-08] MEDS: ASCORBIC ACID 500 MG TAB PO SCH ×2 (13:13→21:30)
[2020-10-08] MEDS: HEPARIN 5,000 UNIT/1 ML VIAL SUB-Q SCH ×2 (13:13→22:00)
[2020-10-08] MEDS: ZINC SULFATE 220 MG CAP PO SCH ×2 (13:13→21:30)
[2020-10-08] MEDS: CHOLECALCIFEROL (VIT D3) 1000 UNIT (25 mcg) TAB PO SCH (13:13)
--- NOTE | 2020-10-08 14:16 | Progress Note ---
Assessment and Plan 65 y/o obese male with acute respiratory failure secondary to COVID pneumonia. 10/08/20: Will give another dose of lasix today. Tolerated 20 on yesterday. Renal function is stable. Continue steroids, can likely change to oral as early as tomorrow. Will need walk test prior to discharge. Prednisone taper will need to be prolonged. Suggest the following: Prednisone 60 daily for 4 days, 40 daily for 4 days, 20 daily for 4 days, then stop. Continue to prone as tolerated during the day and sleep prone at night. 1. Suggest light diuresis. Would start with lasix 20. Needs chemistry drawn in am as last was on 10/04 2. Continue IV steroids until on nasal cannula then can transition to prednisone with prolonged taper 3. Prone as tolerated during the day and sleep prone at night 4. Will continue to follow with you. Subjective Date of service: 10/08/20 Principal diagnosis: COVID-19 pneumonia. Interval history: no acute events. Down to 4 liters. Objective Vital Signs - 12hr 10/08/20 10/08/20 10/08/20 03:20 03:59 08:00 Temperature 98.0 F Pulse Rate 89 Respiratory 16 Rate Blood Pressure 118/74 Blood Pressure [Right] O2 Sat by Pulse 96 92 96 Oximetry 10/08/20 13:38 Temperature 97.8 F Pulse Rate 94 H Respiratory 20 Rate Blood Pressure Blood Pressure 118/76 [Right] O2 Sat by Pulse 97 Oximetry CBC and BMP: 10/08/20 05:41 10/08/20 05:41 ABG, PT/INR, D-dimer: PT/INR, D-dimer D-Dimer 4340.21 ng/mlDDU (0-234) H 10/08/20 05:41 Abnormal lab findings: Abnormal Labs 09/28/20 09/28/20 09/28/20 08:45 14:08 14:08 WBC Lymph % (Auto) 8.4 L [place] % (Auto) 7.8 H Lymph # (Auto) 0.4 L [place] # (Auto) Seg Neutrophils % 83.7 H Seg Neutrophils # D-Dimer 472.87 H Sodium Potassium Chloride BUN Creatinine Glucose POC Glucose Ferritin AST ALT Lactate Dehydrogenase C-Reactive Protein Total Protein Albumin Coronavirus (PCR) Positive A 09/28/20 09/28/20 09/29/20 14:08 14:08 16:11 WBC Lymph % (Auto) [place] % (Auto) Lymph # (Auto) [place] # (Auto) Seg Neutrophils % Seg Neutrophils # D-Dimer Sodium 136 L Potassium Chloride 97.7 L BUN Creatinine Glucose 174 H 190 H POC Glucose Ferritin 2520.0 H AST 43 H ALT Lactate Dehydrogenase 623 H C-Reactive Protein 8.70 H Total Protein Albumin 3.6 L 3.4 L Coronavirus (PCR) 09/30/20 10/01/20 10/01/20 04:48 06:07 13:14 WBC Lymph % (Auto) [place] % (Auto) Lymph # (Auto) [place] # (Auto) Seg Neutrophils % Seg Neutrophils # D-Dimer 986.83 H Sodium Potassium Chloride BUN Creatinine 0.7 L 0.7 L Glucose 203 H 257 H POC Glucose Ferritin AST ALT Lactate Dehydrogenase C-Reactive Protein Total Protein Albumin 3.3 L 3.3 L Coronavirus (PCR) 10/01/20 10/01/20 10/02/20 13:14 13:14 05:04 WBC Lymph % (Auto) [place] % (Auto) Lymph # (Auto) [place] # (Auto) Seg Neutrophils % Seg Neutrophils # D-Dimer Sodium 130 L D Potassium Chloride 96.1 L BUN Creatinine Glucose 282 H POC Glucose Ferritin 1649.0 H AST 50 H ALT 104 H Lactate Dehydrogenase 574 H C-Reactive Protein Total Protein Albumin 3.1 L Coronavirus (PCR) 10/03/20 10/04/20 10/05/20 08:11 07:03 22:29 WBC Lymph % (Auto) [place] % (Auto) Lymph # (Auto) [place] # (Auto) Seg Neutrophils % Seg Neutrophils # D-Dimer Sodium 131 L 134 L Potassium Chloride 93.6 L 96.7 L BUN Creatinine 0.6 L 0.6 L Glucose 277 H 273 H POC Glucose 315 H Ferritin AST ALT 95 H 78 H Lactate Dehydrogenase C-Reactive Protein Total Protein 5.7 L 5.3 L Albumin 3.2 L 3.0 L Coronavirus (PCR) 10/06/20 10/06/20 10/06/20 07:45 12:09 17:18 WBC Lymph % (Auto) [place] % (Auto) Lymph # (Auto) [place] # (Auto) Seg Neutrophils % Seg Neutrophils # D-Dimer Sodium Potassium Chloride BUN Creatinine Glucose POC Glucose 284 H 296 H 361 H Ferritin AST ALT Lactate Dehydrogenase C-Reactive Protein Total Protein Albumin Coronavirus (PCR) 10/06/20 10/07/20 10/07/20 22:32 07:58 11:57 WBC Lymph % (Auto) [place] % (Auto) Lymph # (Auto) [place] # (Auto) Seg Neutrophils % Seg Neutrophils # D-Dimer Sodium Potassium Chloride BUN Creatinine Glucose POC Glucose 334 H 274 H 296 H Ferritin AST ALT Lactate Dehydrogenase C-Reactive Protein Total Protein Albumin Coronavirus (PCR) 10/07/20 10/07/20 10/07/20 16:09 21:51 21:51 WBC Lymph % (Auto) [place] % (Auto) Lymph # (Auto) [place] # (Auto) Seg Neutrophils % Seg Neutrophils # D-Dimer Sodium 124 L D Potassium 5.5 H Chloride 92.4 L BUN 23 H Creatinine 0.7 L Glucose 383 H POC Glucose 362 H 425 H Ferritin AST ALT Lactate Dehydrogenase C-Reactive Protein Total Protein Albumin Coronavirus (PCR) 10/08/20 10/08/20 10/08/20 05:41 05:41 05:41 WBC 13.4 H Lymph % (Auto) 4.1 L [place] % (Auto) 8.2 H Lymph # (Auto) 0.5 L [place] # (Auto) 1.1 H Seg Neutrophils % 87.5 H Seg Neutrophils # 11.7 H D-Dimer 4340.21 H Sodium 129 L Potassium Chloride 93.5 L BUN 23 H Creatinine 0.7 L Glucose 317 H POC Glucose Ferritin AST ALT 63 H Lactate Dehydrogenase C-Reactive Protein Total Protein 5.8 L Albumin 3.0 L Coronavirus (PCR) 10/08/20 10/08/20 09:02 11:15 WBC Lymph % (Auto) [place] % (Auto) Lymph # (Auto) [place] # (Auto) Seg Neutrophils % Seg Neutrophils # D-Dimer Sodium Potassium Chloride BUN Creatinine Glucose POC Glucose 350 H 363 H Ferritin AST ALT Lactate Dehydrogenase C-Reactive Protein Total Protein Albumin Coronavirus (PCR)
--- NOTE | 2020-10-08 14:54 | Progress Note ---
Assessment and Plan Cultures: Blood culture no growth so far Covid PCR: Positive A/P: 65 old male with past medical history hypertension, diabetes, obesity admitted with COVID-19 #Severe COVID-19 pneumonia: Patient presented with a week of symptoms, chest x- ray with diffuse bilateral infiltrates. Inflammatory markers elevated #Acute hypoxemic respiratory failure: secondary to COVID-19 infection. Currently on HFNC #Obesity Recs: -continue steroids, taper per pulmonary -Completed Remdesivir. CRP 0.5, procalcitonin 0.01 -Anticoagulation per protocol based on D-dimer, monitor D-dimer, given rise, repeat ordered for tomorrow Walter Kline MD, FACP [facility] ([facility] O: [phone] F: [phone] Subjective Date of service: 10/08/20 Principal diagnosis: COVID-19 pneumonia. Interval history: No fever. Remains on oxygen via [place] at 4 L/min. CRP 0.5, procalcitonin 0.01, D-dimer 4340. Objective - Exam Narrative Exam: Physical Exam (reviewed in chart to minimize risk of transmission) Constitutional: deferred Head, Ears, Nose: deferred Eyes: deferred Neck: deferred Oral: deferred Cardiovascular: deferred Respiratory: deferred GI: deferred Musculoskeletal: deferred Skin: deferred Hem/Lymphatic: deferred Psych: deferred Neurological: deferred - Constitutional Vitals: Vital Signs Temp Pulse Resp BP Pulse Ox 97.8 F 94 H 20 118/76 97 10/08/20 13:38 10/08/20 13:38 10/08/20 13:38 10/08/20 13:38 10/08/20 13:38 Temperature -Last 24 Hours Temperature 97.8 F Temperature 98.0 F Temperature 98.9 F Temperature 97.5 F Temperature 99.1 F - Labs CBC & Chem 7: 10/08/20 05:41 10/08/20 05:41 Labs: Abnormal lab results 10/07/20 10/07/20 10/07/20 Range/Units 16:09 21:51 21:51 WBC (4.5-11.0) K/mm3 Lymph % (Auto) (13.4-35.0) % [place] % (Auto) (0.0-7.3) % Lymph # (Auto) (1.2-5.4) K/mm3 [place] # (Auto) (0.0-0.8) K/mm3 Seg Neutrophils % (40.0-70.0) % Seg Neutrophils # (1.8-7.7) K/mm3 D-Dimer (0-234) ng/mlDDU Sodium 124 L D (137-145) mmol/L Potassium 5.5 H (3.6-5.0) mmol/L Chloride 92.4 L (98-107) mmol/L BUN 23 H (9-20) mg/dL Creatinine 0.7 L (0.8-1.3) mg/dL Glucose 383 H (75-100) mg/dL POC Glucose 362 H 425 H (70-105) mg/dL ALT (7-56) units/L Total Protein (6.3-8.2) g/dL Albumin (3.9-5) g/dL 10/08/20 10/08/20 10/08/20 Range/Units 05:41 05:41 05:41 WBC 13.4 H (4.5-11.0) K/mm3 Lymph % (Auto) 4.1 L (13.4-35.0) % [place] % (Auto) 8.2 H (0.0-7.3) % Lymph # (Auto) 0.5 L (1.2-5.4) K/mm3 [place] # (Auto) 1.1 H (0.0-0.8) K/mm3 Seg Neutrophils % 87.5 H (40.0-70.0) % Seg Neutrophils # 11.7 H (1.8-7.7) K/mm3 D-Dimer 4340.21 H (0-234) ng/mlDDU Sodium 129 L (137-145) mmol/L Potassium (3.6-5.0) mmol/L Chloride 93.5 L (98-107) mmol/L BUN 23 H (9-20) mg/dL Creatinine 0.7 L (0.8-1.3) mg/dL Glucose 317 H (75-100) mg/dL POC Glucose (70-105) mg/dL ALT 63 H (7-56) units/L Total Protein 5.8 L (6.3-8.2) g/dL Albumin 3.0 L (3.9-5) g/dL 10/08/20 10/08/20 Range/Units 09:02 11:15 WBC (4.5-11.0) K/mm3 Lymph % (Auto) (13.4-35.0) % [place] % (Auto) (0.0-7.3) % Lymph # (Auto) (1.2-5.4) K/mm3 [place] # (Auto) (0.0-0.8) K/mm3 Seg Neutrophils % (40.0-70.0) % Seg Neutrophils # (1.8-7.7) K/mm3 D-Dimer (0-234) ng/mlDDU Sodium (137-145) mmol/L Potassium (3.6-5.0) mmol/L Chloride (98-107) mmol/L BUN (9-20) mg/dL Creatinine (0.8-1.3) mg/dL Glucose (75-100) mg/dL POC Glucose 350 H 363 H (70-105) mg/dL ALT (7-56) units/L Total Protein (6.3-8.2) g/dL Albumin (3.9-5) g/dL
[2020-10-08] MEDS: INSULIN GLARGINE 100 UNITS/ML SUB-Q SCH (22:00)
[2020-10-09] MEDS: methylPREDNISolone Sod Succinate 40 MG/1 ML INJ IV SCH ×3 (06:41→22:40)
[2020-10-09] MEDS: INSULIN REGULAR, HUMAN 100 UNITS/1 ML SUB-Q SCH ×4 (08:43→22:41)
--- NOTE | 2020-10-09 08:48 | Discharge Summary ---
Providers - Providers Date of Admission: 09/28/20 16:01 Date of discharge: 10/10/20 Attending physician: JANA MOORE 09/29/20 15:38 Consult to Physician [CONS] Routine Comment: Consulting Provider: WOLFGANG PEARSON Physician Instructions: Reason For Exam: Positive COVID-19 10/07/20 07:42 Consult to Physician [CONS] Routine Comment: Consulting Provider: ISSA JAMES Physician Instructions: Reason For Exam: resp failure Primary care physician: STONE LAYOUT MARKER Hospitalization Reason for admission: sob Condition: Fair Hospital course: 65-year-old male with past medical history of hypertension, diabetes mellitus type 2 and obesity who was admitted with diagnosis of acute hypoxic respiratory failure secondary to severe Covid 19 pneumonia and obesity. The patient was treated with IV steroids and completed a course of remdesivir. Patient was also treated with anticoagulation per protocol based on D-dimer. Hospital course: 09/30/2020; Patient requires 2 L supplemental nasal cannula oxygen On Solu-Medrol, remdesivir, antibiotics DC'd normal procalcitonin Follow ID evaluation recommendation, prone positioning, home O2 evaluation 10/01/2020; 10 L nasal cannula oxygen, prone position 10/02/2020; on high flow oxygen 35 L/80% FiO2/97 O2 sats Patient remains on high flow O2. FiO2 decreased from 65-60 now. Patient remains on 30 L at this time Hospital course unremarkable COVID-19 pneumonia. 10/06/2020. Continue IV steroids for total of 10 days. Patient with normal CRP therefore not a candidate for Actemra. Patient has completed remdesivir. Patient still with significant oxygen requirements currently on 10 L. ID following. Consider pulmonary consultation if oxygen requirements do not improve. Continue Accu-Cheks and SSRI. Continue antihypertensive medications 10/07/2020. Continue IV steroids. Patient has completed remdesivir. Patient still remains on significant oxygen requirements with 10 L. Pulmonary consultation. Prone positioning as possible. Continue Accu-Cheks and SSRI. Continue antihypertensive medications. 10/08/2020. Patient is oxygen has been weaned to 5 L. Continue to wean oxygen as tolerated. Continue IV steroids. Patient has completed remdesivir. Prone positioning as possible. Continue Accu-Cheks and SSRI. Continue antih ypertensive medications. 10/09/2020. CTA of the chest reveals mild/moderate right upper and lower lobe PE. Start Eliquis 10 mg 1 p.o. twice daily and then transition to 5 mg p.o. twice daily after 7 days. Check echocardiogram to rule out right heart strain. Pulmonary saw the patient in consultation and recommended changing steroids to p.o. with prednisone taper of 60 daily for 4 days, 40 daily for 4 days, 20 daily for 4 days, then stop. Continue to prone as tolerated during the day and sleep prone at night. Patient had exercise pulse oximetry done yesterday and does not meet criteria for home O2. Dedicated discharge time 35 minutes Disposition: HOME / SELF CARE / HOMELESS Final Discharge Diagnosis (Prints w/discharge instructions): Acute hypoxemic respiratory failure, severe COVID-19 pneumonia, obesity, diabetes mellitus type 2 Core Measure Documentation - Palliative Care Palliative Care/ Comfort Measures: Not Applicable - Core Measures Any of the following diagnoses?: none Exam - Constitutional Vitals: Temp Pulse Resp BP Pulse Ox 98.3 F 94 H 18 137/73 93 10/09/20 03:27 10/09/20 03:27 10/09/20 03:27 10/09/20 03:27 10/09/20 03:27 General appearance: Present: no acute distress, well-nourished - EENT Eyes: Present: PERRL ENT: hearing intact, clear oral mucosa - Neck Neck: Present: supple, normal ROM - Respiratory Respiratory effort: normal Respiratory: bilateral: CTA - Cardiovascular Heart Sounds: Present: S1 & S2. Absent: rub, click - Extremities Extremities: pulses symmetrical, No edema Peripheral Pulses: within normal limits - Abdominal General gastrointestinal: Present: soft, non-tender, non-distended, normal bowel sounds Male genitourinary: Present: normal - Integumentary Integumentary: Present: clear, warm, dry - Musculoskeletal Musculoskeletal: gait normal, strength equal bilaterally - Psychiatric Psychiatric: appropriate mood/affect, intact judgment & insight - Neurologic Neurologic: CNII-XII intact, moves all extremities Plan Activity: advance as tolerated Weight Bearing Status: Weight Bear as Tolerated Diet: diabetic Durable Medical Equipment Needed Upon Discharge: Oxygen Additional Instructions: Eliquis 10 mg 1 p.o. twice daily x6 days then 5 mg p.o. twice daily for 6 months. Follow up with: PRIMARY CARE, [Primary Care Provider] - 3-5 Days GOLDIE NUR MD [Staff Physician] - 7 Days ISSA JAMES MD [Staff Physician] - 7 Days Prescriptions: amLODIPine 10 mg PO DAILY #30 Olmesartan (Nf) [Benicar] 40 mg PO QDAY #30 predniSONE [Deltasone] 20 mg PO QDAY #24 tab Apixaban [Eliquis] 5 mg PO BID #60 tablet Apixaban [Eliquis] 5 mg PO BID 6 Days #24 tablet Metoprolol [Lopressor TAB] 100 mg PO BID #60 Empagliflozin/Metformin HCl [Synjardy 5-1,000 mg Tablet] 1 each PO BID #60 Ascorbic Acid [Vitamin C] 500 mg PO BID #60 tablet Cholecalciferol Vit D3 [Vitamin D3 1,000 UNIT TAB] 1,000 unit PO QDAY #30 tablet Zinc Sulfate 220 mg PO BID #60 capsule
--- NOTE | 2020-10-09 11:41 | Progress Note ---
Assessment and Plan 65 y/o obese male with acute respiratory failure secondary to COVID pneumonia. 10/09/20: No new recs, please see below listed 10/08/20. 10/08/20: Will give another dose of lasix today. Tolerated 20 on yesterday. Renal function is stable. Continue steroids, can likely change to oral as early as tomorrow. Will need walk test prior to discharge. Prednisone taper will need to be prolonged. Suggest the following: Prednisone 60 daily for 4 days, 40 daily for 4 days, 20 daily for 4 days, then stop. Continue to prone as tolerated during the day and sleep prone at night. 1. Suggest light diuresis. Would start with lasix 20. Needs chemistry drawn in am as last was on 10/04 2. Continue IV steroids until on nasal cannula then can transition to prednisone with prolonged taper 3. Prone as tolerated during the day and sleep prone at night 4. Will continue to follow with you. Subjective Date of service: 10/09/20 Principal diagnosis: COVID-19 pneumonia. Interval history: Per charting down to 2 liters NC. Discharge order in place. Objective Vital Signs - 12hr 10/09/20 03:27 Temperature 98.3 F Pulse Rate 94 H Respiratory 18 Rate Blood Pressure 137/73 O2 Sat by Pulse 93 Oximetry CBC and BMP: 10/08/20 05:41 10/08/20 05:41 ABG, PT/INR, D-dimer: PT/INR, D-dimer D-Dimer 1781.12 ng/mlDDU (0-234) H 10/09/20 05:07 Abnormal lab findings: Abnormal Labs 09/28/20 09/28/20 09/28/20 08:45 14:08 14:08 WBC Lymph % (Auto) 8.4 L [place] % (Auto) 7.8 H Lymph # (Auto) 0.4 L [place] # (Auto) Seg Neutrophils % 83.7 H Seg Neutrophils # D-Dimer 472.87 H Sodium Potassium Chloride BUN Creatinine Glucose POC Glucose Ferritin AST ALT Lactate Dehydrogenase C-Reactive Protein Total Protein Albumin Coronavirus (PCR) Positive A 09/28/20 09/28/20 09/29/20 14:08 14:08 16:11 WBC Lymph % (Auto) [place] % (Auto) Lymph # (Auto) [place] # (Auto) Seg Neutrophils % Seg Neutrophils # D-Dimer Sodium 136 L Potassium Chloride 97.7 L BUN Creatinine Glucose 174 H 190 H POC Glucose Ferritin 2520.0 H AST 43 H ALT Lactate Dehydrogenase 623 H C-Reactive Protein 8.70 H Total Protein Albumin 3.6 L 3.4 L Coronavirus (PCR) 09/30/20 10/01/20 10/01/20 04:48 06:07 13:14 WBC Lymph % (Auto) [place] % (Auto) Lymph # (Auto) [place] # (Auto) Seg Neutrophils % Seg Neutrophils # D-Dimer 986.83 H Sodium Potassium Chloride BUN Creatinine 0.7 L 0.7 L Glucose 203 H 257 H POC Glucose Ferritin AST ALT Lactate Dehydrogenase C-Reactive Protein Total Protein Albumin 3.3 L 3.3 L Coronavirus (PCR) 10/01/20 10/01/20 10/02/20 13:14 13:14 05:04 WBC Lymph % (Auto) [place] % (Auto) Lymph # (Auto) [place] # (Auto) Seg Neutrophils % Seg Neutrophils # D-Dimer Sodium 130 L D Potassium Chloride 96.1 L BUN Creatinine Glucose 282 H POC Glucose Ferritin 1649.0 H AST 50 H ALT 104 H Lactate Dehydrogenase 574 H C-Reactive Protein Total Protein Albumin 3.1 L Coronavirus (PCR) 10/03/20 10/04/20 10/05/20 08:11 07:03 22:29 WBC Lymph % (Auto) [place] % (Auto) Lymph # (Auto) [place] # (Auto) Seg Neutrophils % Seg Neutrophils # D-Dimer Sodium 131 L 134 L Potassium Chloride 93.6 L 96.7 L BUN Creatinine 0.6 L 0.6 L Glucose 277 H 273 H POC Glucose 315 H Ferritin AST ALT 95 H 78 H Lactate Dehydrogenase C-Reactive Protein Total Protein 5.7 L 5.3 L Albumin 3.2 L 3.0 L Coronavirus (PCR) 10/06/20 10/06/20 10/06/20 07:45 12:09 17:18 WBC Lymph % (Auto) [place] % (Auto) Lymph # (Auto) [place] # (Auto) Seg Neutrophils % Seg Neutrophils # D-Dimer Sodium Potassium Chloride BUN Creatinine Glucose POC Glucose 284 H 296 H 361 H Ferritin AST ALT Lactate Dehydrogenase C-Reactive Protein Total Protein Albumin Coronavirus (PCR) 10/06/20 10/07/20 10/07/20 22:32 07:58 11:57 WBC Lymph % (Auto) [place] % (Auto) Lymph # (Auto) [place] # (Auto) Seg Neutrophils % Seg Neutrophils # D-Dimer Sodium Potassium Chloride BUN Creatinine Glucose POC Glucose 334 H 274 H 296 H Ferritin AST ALT Lactate Dehydrogenase C-Reactive Protein Total Protein Albumin Coronavirus (PCR) 10/07/20 10/07/20 10/07/20 16:09 21:51 21:51 WBC Lymph % (Auto) [place] % (Auto) Lymph # (Auto) [place] # (Auto) Seg Neutrophils % Seg Neutrophils # D-Dimer Sodium 124 L D Potassium 5.5 H Chloride 92.4 L BUN 23 H Creatinine 0.7 L Glucose 383 H POC Glucose 362 H 425 H Ferritin AST ALT Lactate Dehydrogenase C-Reactive Protein Total Protein Albumin Coronavirus (PCR) 10/08/20 10/08/20 10/08/20 05:41 05:41 05:41 WBC 13.4 H Lymph % (Auto) 4.1 L [place] % (Auto) 8.2 H Lymph # (Auto) 0.5 L [place] # (Auto) 1.1 H Seg Neutrophils % 87.5 H Seg Neutrophils # 11.7 H D-Dimer 4340.21 H Sodium 129 L Potassium Chloride 93.5 L BUN 23 H Creatinine 0.7 L Glucose 317 H POC Glucose Ferritin AST ALT 63 H Lactate Dehydrogenase C-Reactive Protein Total Protein 5.8 L Albumin 3.0 L Coronavirus (PCR) 10/08/20 10/08/20 10/08/20 09:02 11:15 16:41 WBC Lymph % (Auto) [place] % (Auto) Lymph # (Auto) [place] # (Auto) Seg Neutrophils % Seg Neutrophils # D-Dimer Sodium Potassium Chloride BUN Creatinine Glucose POC Glucose 350 H 363 H 313 H Ferritin AST ALT Lactate Dehydrogenase C-Reactive Protein Total Protein Albumin Coronavirus (PCR) 10/09/20 10/09/20 10/09/20 05:07 07:25 11:12 WBC Lymph % (Auto) [place] % (Auto) Lymph # (Auto) [place] # (Auto) Seg Neutrophils % Seg Neutrophils # D-Dimer 1781.12 H Sodium Potassium Chloride BUN Creatinine Glucose POC Glucose 259 H 325 H Ferritin AST ALT Lactate Dehydrogenase C-Reactive Protein Total Protein Albumin Coronavirus (PCR)
--- NOTE | 2020-10-09 13:30 | Progress Note ---
Assessment and Plan Cultures: Blood culture no growth so far Covid PCR: Positive A/P: 65 old male with past medical history hypertension, diabetes, obesity admitted with COVID-19 #Severe COVID-19 pneumonia: Patient presented with a week of symptoms, chest x- ray with diffuse bilateral infiltrates. Inflammatory markers elevated #Acute hypoxemic respiratory failure: secondary to COVID-19 infection. Improved. #Obesity Recs: -continue steroids, taper per pulmonary -Completed Remdesivir. CRP 0.5, procalcitonin 0.01 -D-dimer improved to 1781. CTA chest done, results pending, if negative for PE, agree with discharge since patient's oxygen has been weaned Walter Kline MD, FACP [facility] ([facility] O: [phone] F: [phone] Subjective Date of service: 10/09/20 Principal diagnosis: COVID-19 pneumonia. Interval history: Afebrile. Oxygen saturations were 93% on room air. Did not qualify for home oxygen. Objective - Exam Narrative Exam: Physical Exam (reviewed in chart to minimize risk of transmission) Constitutional: deferred Head, Ears, Nose: deferred Eyes: deferred Neck: deferred Oral: deferred Cardiovascular: deferred Respiratory: deferred GI: deferred Musculoskeletal: deferred Skin: deferred Hem/Lymphatic: deferred Psych: deferred Neurological: deferred - Constitutional Vitals: Vital Signs Temp Pulse Resp BP Pulse Ox 98.3 F 94 H 18 137/73 93 10/09/20 03:27 10/09/20 03:27 10/09/20 03:27 10/09/20 03:27 10/09/20 03:27 Temperature -Last 24 Hours Temperature 98.3 F Temperature 98.7 F Temperature 97.8 F - Labs CBC & Chem 7: 10/08/20 05:41 10/08/20 05:41 Labs: Abnormal lab results 10/08/20 10/09/20 10/09/20 Range/Units 16:41 05:07 07:25 D-Dimer 1781.12 H (0-234) ng/mlDDU POC Glucose 313 H 259 H (70-105) mg/dL 10/09/20 Range/Units 11:12 D-Dimer (0-234) ng/mlDDU POC Glucose 325 H (70-105) mg/dL
--- NOTE | 2020-10-09 14:09 | Cat Scan Report ---
CTA CHEST WITH CONTRAST INDICATION / CLINICAL INFORMATION: Elevated d-dimer. TECHNIQUE: Axial CT images were obtained through the chest after injection of Omnipaque 350, 100 cc I V contrast. 3 plane MIP and/or 3D reconstructions were produced. All CT scans at this location are pe rformed using CT dose reduction for ALARA by means of automated exposure control. COMPARISON: None available. FINDINGS: PULMONARY ARTERIES: Mild/moderate clot right upper and lower lobes. THORACIC AORTA: No significant abnormality. HEART: No significant abnormality. CORONARY ARTERY CALCIFICATION: None. MEDIASTINUM / STACEY: No significant abnormality. PLEURA: No pleural effusion. No pneumothorax. LUNGS: Diffuse bilateral patchy infiltrates are predominantly groundglass. ADDITIONAL FINDINGS: None. UPPER ABDOMEN: Bilateral benign-appearing renal cysts. Partially imaged right renal stone measuring 1 .3 cm. Fatty liver. SKELETAL STRUCTURES: No significant osseous abnormality. IMPRESSION: 1. Mild to moderate right-sided pulmonary embolus. 2. Lateral atypical pneumonia. CRITICAL RESULT: Time of Discovery (HAT LINER/CDT): 12:50 PM Time of Communication (HAT LINER/CDT): 1:04 PM Licensed Practitioner Receiving Report: Christine luong 3 E. Read-Back Performed: Yes. Signer Name: Tomás Hamm MD Signed: 10/09/2020 2:05 PM Workstation Name: [email or web address]
[2020-10-09] MEDS: APIXABAN 5 MG TAB PO SCH ×2 (15:29→23:06)
[2020-10-09] MEDS: ASCORBIC ACID 500 MG TAB PO SCH ×2 (15:29→22:40)
[2020-10-09] MEDS: ZINC SULFATE 220 MG CAP PO SCH ×2 (15:30→22:40)
[2020-10-09] MEDS: CHOLECALCIFEROL (VIT D3) 1000 UNIT (25 mcg) TAB PO SCH (15:30)
[2020-10-09] MEDS: INSULIN GLARGINE 100 UNITS/ML SUB-Q SCH (22:40)
[2020-10-09] MEDS: HEPARIN 5,000 UNIT/1 ML VIAL SUB-Q SCH (23:19)
[2020-10-10] MEDS: methylPREDNISolone Sod Succinate 40 MG/1 ML INJ IV SCH ×3 (05:38→21:59)
[2020-10-10 06:49] LABS: Hemoglobin 13.6 gm/dl (11.8-15.2); Mean Corpuscular HGB Conc 34 % (32-34); Mean Corpuscular Volume 93 fl (84-94); Platelet Count 274 K/mm3 (140-440); Red Blood Count 4.32 M/mm3 (3.65-5.03); Red Cell Distribution Width 13.3 % (13.2-15.2)
[2020-10-10 06:58] LABS: INR 1.26 (0.87-1.13)
[2020-10-10 06:59] LABS: Partial Thromboplastin Time 28.6 Sec. (24.2-36.6)
--- NOTE | 2020-10-10 08:04 | Progress Note ---
Assessment and Plan Assessment and plan: 65 old male with past medical history hypertension, diabetes, obesity admitted with COVID-19 Acute hypoxemic respiratory failure Severe COVID-19 pneumonia Moderate RUL/RLL PE. Morbid obesity Diabetes mellitus type 2 Hypertension 10/06/2020. Continue IV steroids for total of 10 days. Patient with normal CRP therefore not a candidate for Actemra. Patient has completed remdesivir. Patient still with significant oxygen requirements currently on 10 L. ID following. Consider pulmonary consultation if oxygen requirements do not improve. Continue Accu-Cheks and SSRI. Continue antihypertensive medications 10/07/2020. Continue IV steroids. Patient has completed remdesivir. Patient still remains on significant oxygen requirements with 10 L. Pulmonary consultation. Prone positioning as possible. Continue Accu-Cheks and SSRI. Continue antihypertensive medications. 10/08/2020. Patient is oxygen has been weaned to 5 L. Continue to wean oxygen as tolerated. Continue IV steroids. Patient has completed remdesivir. Prone positioning as possible. Continue Accu-Cheks and SSRI. Continue antihypertensive medications. 10/09/2020. CTA of the chest reveals mild/moderate right upper and lower lobe PE. Start Eliquis 10 mg 1 p.o. twice daily and then transition to 5 mg p.o. twice daily after 7 days. Check echocardiogram to rule out right heart strain. Consider vascular surgery consultation. 10/10/2020. Continue Eliquis and follow-up echocardiogram to rule out right heart strain. If echocardiogram negative, consider discharge home today. History Interval history: No new issues overnight. Hospitalist Physical - Constitutional Vitals: Temp Pulse Resp BP Pulse Ox 98.3 F 86 18 144/86 97 10/10/20 03:29 10/10/20 03:29 10/10/20 03:29 10/10/20 03:29 10/10/20 03:29 General appearance: Present: no acute distress, well-nourished - EENT Eyes: Present: PERRL, EOM intact ENT: hearing intact, clear oral mucosa, dentition normal - Neck Neck: Present: supple, normal ROM - Respiratory Respiratory effort: normal Respiratory: bilateral: CTA - Cardiovascular Rhythm: regular Heart Sounds: Present: S1 & S2. Absent: gallop, rub - Extremities Extremities: no ischemia, No edema, Full ROM - Abdominal General gastrointestinal: soft, non-tender, non-distended, normal bowel sounds - Integumentary Integumentary: Present: clear, warm, dry - Neurologic Neurologic: CNII-XII intact, moves all extremities Results - Labs CBC & Chem 7: 10/10/20 05:56 10/10/20 05:56 Labs: Laboratory Last Values WBC 11.6 K/mm3 (4.5-11.0) H 10/10/20 05:56 RBC 4.32 M/mm3 (3.65-5.03) 10/10/20 05:56 Hgb 13.6 gm/dl (11.8-15.2) 10/10/20 05:56 Hct 40.0 % (35.5-45.6) 10/10/20 05:56 MCV 93 fl (84-94) 10/10/20 05:56 MCH 32 pg (28-32) 10/10/20 05:56 MCHC 34 % (32-34) 10/10/20 05:56 RDW 13.3 % (13.2-15.2) 10/10/20 05:56 Plt Count 274 K/mm3 (140-440) 10/10/20 05:56 Lymph % (Auto) 4.1 % (13.4-35.0) L 10/08/20 05:41 [place] % (Auto) 8.2 % (0.0-7.3) H 10/08/20 05:41 Eos % (Auto) 0.1 % (0.0-4.3) 10/08/20 05:41 Baso % (Auto) 0.1 % (0.0-1.8) 10/08/20 05:41 Lymph # (Auto) 0.5 K/mm3 (1.2-5.4) L 10/08/20 05:41 [place] # (Auto) 1.1 K/mm3 (0.0-0.8) H 10/08/20 05:41 Eos # (Auto) 0.0 K/mm3 (0.0-0.4) 10/08/20 05:41 Baso # (Auto) 0.0 K/mm3 (0.0-0.1) 10/08/20 05:41 Seg Neutrophils % 87.5 % (40.0-70.0) H 10/08/20 05:41 Seg Neutrophils # 11.7 K/mm3 (1.8-7.7) H 10/08/20 05:41 PT 16.3 Sec. (12.2-14.9) H 10/10/20 05:56 INR 1.26 (0.87-1.13) H 10/10/20 05:56 APTT 28.6 Sec. (24.2-36.6) 10/10/20 05:56 D-Dimer 1781.12 ng/mlDDU (0-234) H 10/09/20 05:07 Sodium 129 mmol/L (137-145) L 10/08/20 05:41 Potassium 4.8 mmol/L (3.6-5.0) 10/08/20 05:41 Chloride 93.5 mmol/L (98-107) L 10/08/20 05:41 Carbon Dioxide 28 mmol/L (22-30) 10/08/20 05:41 Anion Gap 12 mmol/L 10/08/20 05:41 BUN 23 mg/dL (9-20) H 10/08/20 05:41 Creatinine 0.6 mg/dL (0.8-1.3) L 10/10/20 05:56 Estimated GFR > 60 ml/min 10/10/20 05:56 BUN/Creatinine Ratio 33 % 10/08/20 05:41 Glucose 317 mg/dL (75-100) H 10/08/20 05:41 POC Glucose 343 mg/dL (70-105) H 10/09/20 21:33 Lactic Acid 1.10 mmol/L (0.7-2.0) 09/28/20 23:27 Calcium 9.3 mg/dL (8.4-10.2) 10/08/20 05:41 Ferritin 1649.0 ng/mL (30.0-300.0) H 10/01/20 13:14 Total Bilirubin 0.50 mg/dL (0.1-1.2) 10/08/20 05:41 AST 17 units/L (5-40) 10/08/20 05:41 ALT 63 units/L (7-56) H 10/08/20 05:41 Alkaline Phosphatase 110 units/L (35-129) 10/08/20 05:41 Lactate Dehydrogenase 574 units/L (91-180) H 10/01/20 13:14 C-Reactive Protein 0.50 mg/dL (0.00-1.30) 10/08/20 05:41 Total Protein 5.8 g/dL (6.3-8.2) L 10/08/20 05:41 Albumin 3.0 g/dL (3.9-5) L 10/08/20 05:41 Albumin/Globulin Ratio 1.1 % 10/08/20 05:41 Procalcitonin 0.10 ng/mL (<0.15) 10/08/20 05:41 Urine Color Yellow (Yellow) 09/29/20 08:00 Urine Turbidity Slightly-cloudy (Clear) 09/29/20 08:00 Urine pH 5.0 (5.0-7.0) 09/29/20 08:00 Ur Specific [place] 1.021 (1.003-1.030) 09/29/20 08:00 Urine Protein 100 mg/dl mg/dL (Negative) 09/29/20 08:00 Urine Glucose (UA) Neg mg/dL (Negative) 09/29/20 08:00 Urine Ketones 20 mg/dL (Negative) 09/29/20 08:00 Urine Blood Lg (Negative) 09/29/20 08:00 Urine Nitrite Neg (Negative) 09/29/20 08:00 Urine Bilirubin Neg (Negative) 09/29/20 08:00 Urine Urobilinogen < 2.0 mg/dL (<2.0) 09/29/20 08:00 Ur Leukocyte Esterase Neg (Negative) 09/29/20 08:00 Urine WBC (Auto) 2.0 /HPF (0.0-6.0) 09/29/20 08:00 Urine RBC (Auto) 89.0 /HPF (0.0-6.0) 09/29/20 08:00 Urine Bacteria (Auto) 1+ /HPF (Negative) 09/29/20 08:00 Urine Mucus Few /HPF 09/29/20 08:00 Coronavirus (PCR) Positive (Negative) A 09/28/20 08:45 Mcgu[place]/IV: Voiding Method Urinal Active Medications - Current Medications Current Medications: Generic Name Dose Route Start Last Admin Trade Name Freq PRN Reason Stop Dose Admin Acetaminophen 650 mg 09/28/20 16:30 Acetaminophen 325 Mg Tab PO Q6H PRN Pain, Mild (1-3) Albuterol 2.5 mg 09/28/20 16:30 Albuterol 2.5 Mg/3 Ml Nebu IH Q4HRT PRN Shortness Of Breath Apixaban 10 mg 10/09/20 15:00 10/09/20 23:06 Apixaban 5 Mg Tab PO 10/15/20 22:01 10 mg Q12HR RENEE Administration Protocol Apixaban 5 mg 10/16/20 10:00 Apixaban 5 Mg Tab PO Q12HR RENEE Ascorbic Acid 500 mg 09/28/20 22:00 10/09/20 22:40 Ascorbic Acid 500 Mg Tab PO 500 mg BID RENEE Administration Cholecalciferol 1,000 unit 09/29/20 10:00 10/09/20 15:30 Cholecalciferol (Vit D3) 1000 Unit (25 Mcg) Tab PO 1,000 unit QDAY RENEE Administration Hydralazine HCl 10 mg 10/01/20 05:33 10/01/20 05:42 Hydralazine 20 Mg/1 Ml Inj IV 10 mg Q6HR PRN Administration Hypertension Hydromorphone HCl 0.5 mg 09/28/20 16:30 Hydromorphone 1 Mg/1 Ml Inj IV Q12H PRN Pain , Severe (7-10) Insulin Glargine 15 units 10/04/20 22:00 10/09/20 22:40 Insulin Glargine 100 Units/Ml SUB-Q 15 units QHS RENEE Administration Insulin Human Regular 0 units 10/07/20 16:30 10/09/20 22:41 Insulin Regular, Human 100 Units/1 Ml SUB-Q 6 units ACHS RENEE Administration Protocol Methylprednisolone Sodium Succinate 40 mg 09/28/20 22:00 10/10/20 05:38 Methylprednisolone Sod Succinate 40 Mg/1 Ml Inj IV 40 mg Q8HR RENEE Administration Ondansetron HCl 4 mg 09/28/20 16:30 Ondansetron 4 Mg/2 Ml Inj IV Q8H PRN Nausea And Vomiting Oxycodone/Acetaminophen 1 tab 09/28/20 17:00 Oxycodone /Acetaminophen 5-325mg Tab PO Q12H PRN Pain, Moderate (4-6) Sodium Chloride 10 ml 09/28/20 22:00 10/09/20 22:41 Sodium Chloride 0.9% 10 Ml Flush Syringe IV 10 ml BID RENEE Administration Sodium Chloride 10 ml 09/28/20 16:30 Sodium Chloride 0.9% 10 Ml Flush Syringe IV PRN PRN LINE FLUSH Zinc Sulfate 220 mg 09/28/20 22:00 10/09/20 22:40 Zinc Sulfate 220 Mg Cap PO 220 mg BID RENEE Administration Nutrition/Malnutrition Assess - Dietary Evaluation Nutrition/Malnutrition Findings: Nutrition Notes Start: 10/05/20 12:34 Freq: Status: Active Protocol: Document 10/05/20 12:34 ARNULFO (Rec: 10/05/20 12:37 ARNULFO [id number]) Nutrition Notes Need for Assessment generated from: LOS Initial or Follow up Brief Note Other Pertinent Diagnosis COVID-19 (+) Current Diet Cardiac Height 6 ft 1 in Weight 108.8 kg [place] Body Weight (kg) 83.63 BMI 31.6 Weight Status Obese Subjective/Other Information Pt screened for LOS. He has consumed 90% of meals since admission. Percent of energy/protein needs met: 100% energy 80% pro Burn Absent Trauma Absent Current % PO Good (75-100%) Minimum of two criteria No Is patient on ventilator? No Is Patient Ambulatory and/or Out of Bed No REE-([facility]-confined to bed) 2323.092 Kcal/Kg value to use for calculation 17 Approximate Energy Requirements Using 1850 kcal/Kg Calculation Used for Recommendations Kcal/kg Additional Notes Pro needs 1-1.2g/kg adjBW: 96- 115g/day Fluid needs 1ml/kcal Nutrition Intervention Revisit per MD consult or patient Sign Off request:
[2020-10-10] MEDS: INSULIN REGULAR, HUMAN 100 UNITS/1 ML SUB-Q SCH ×4 (08:56→22:34)
[2020-10-10] MEDS: ZINC SULFATE 220 MG CAP PO SCH ×2 (12:42→21:59)
[2020-10-10] MEDS: ASCORBIC ACID 500 MG TAB PO SCH ×2 (12:42→21:58)
[2020-10-10] MEDS: CHOLECALCIFEROL (VIT D3) 1000 UNIT (25 mcg) TAB PO SCH (12:43)
[2020-10-10] MEDS: APIXABAN 5 MG TAB PO SCH ×2 (12:43→21:58)
--- NOTE | 2020-10-10 16:18 | Progress Note ---
Assessment and Plan Imp 1. Covid-19 2. Viral pneumonia 3. Acute respiratory failure, hypoxia 4. Acute PE 2/2 #1 5. Obesity Rec: 1. Steroid taper as outlined in Dr. Tariq's note 2. Eliquis 10mg BID x 7 days, then 5mg BID x 3 months 3. Off O2 4. D/c planning; office f/u in a 2-3 weeks for f/u CXR, etc. Subjective Date of service: 10/10/20 Principal diagnosis: COVID-19 pneumonia. Interval history: No events. On room air. Afebrile. SOB better. Active Medications Acetaminophen (Acetaminophen 325 Mg Tab) 650 mg PO Q6H PRN PRN Reason: Pain, Mild (1-3) Albuterol (Albuterol 2.5 Mg/3 Ml Nebu) 2.5 mg IH Q4HRT PRN PRN Reason: Shortness Of Breath Apixaban (Apixaban 5 Mg Tab) 10 mg PO Q12HR [facility]; Protocol Stop: 10/15/20 22:01 Last Admin: 10/10/20 12:43 Dose: 10 mg Documented by: Apixaban (Apixaban 5 Mg Tab) 5 mg PO Q12HR RENEE Ascorbic Acid (Ascorbic Acid 500 Mg Tab) 500 mg PO BID [facility] Last Admin: 10/10/20 12:42 Dose: 500 mg Documented by: Cholecalciferol (Cholecalciferol (Vit D3) 1000 Unit (25 Mcg) Tab) 1,000 unit PO QDAY RENEE Last Admin: 10/10/20 12:43 Dose: 1,000 unit Documented by: Hydralazine HCl (Hydralazine 20 Mg/1 Ml Inj) 10 mg IV Q6HR PRN PRN Reason: Hypertension Last Admin: 10/01/20 05:42 Dose: 10 mg Documented by: Hydromorphone HCl (Hydromorphone 1 Mg/1 Ml Inj) 0.5 mg IV Q12H PRN PRN Reason: Pain , Severe (7-10) Insulin Glargine (Insulin Glargine 100 Units/Ml) 15 units SUB-Q QHS RENEE Last Admin: 10/09/20 22:40 Dose: 15 units Documented by: Insulin Human Regular (Insulin Regular, Human 100 Units/1 Ml) 0 units SUB-Q ACHS RENEE; Protocol Last Admin: 10/10/20 12:48 Dose: 8 units Documented by: Methylprednisolone Sodium Succinate (Methylprednisolone Sod Succinate 40 Mg/1 Ml Inj) 40 mg IV Q8HR [facility] Last Admin: 10/10/20 05:38 Dose: 40 mg Documented by: Ondansetron HCl (Ondansetron 4 Mg/2 Ml Inj) 4 mg IV Q8H PRN PRN Reason: Nausea And Vomiting Oxycodone/Acetaminophen (Oxycodone /Acetaminophen 5-325mg Tab) 1 tab PO Q12H PRN PRN Reason: Pain, Moderate (4-6) Sodium Chloride (Sodium Chloride 0.9% 10 Ml Flush Syringe) 10 ml IV BID [facility] Last Admin: 10/10/20 12:43 Dose: 10 ml Documented by: Sodium Chloride (Sodium Chloride 0.9% 10 Ml Flush Syringe) 10 ml IV PRN PRN PRN Reason: LINE FLUSH Zinc Sulfate (Zinc Sulfate 220 Mg Cap) 220 mg PO BID [facility] Last Admin: 10/10/20 12:42 Dose: 220 mg Documented by: Objective - Exam Narrative Exam: Exam deferred to reduce risk of Covid-19 transmission and preserve PPE (Reviewed exams in chart) Vital Signs - 12hr 10/10/20 11:39 Temperature 97.9 F Pulse Rate 92 H Respiratory 20 Rate Blood Pressure 141/87 O2 Sat by Pulse 95 Oximetry CBC and BMP: 10/10/20 05:56 10/10/20 05:56 ABG, PT/INR, D-dimer: PT/INR, D-dimer PT 16.3 Sec. (12.2-14.9) H 10/10/20 05:56 INR 1.26 (0.87-1.13) H 10/10/20 05:56 D-Dimer 1781.12 ng/mlDDU (0-234) H 10/09/20 05:07 Abnormal lab findings: Abnormal Labs 09/28/20 09/28/20 09/28/20 08:45 14:08 14:08 WBC Lymph % (Auto) 8.4 L Addison % (Auto) 7.8 H Lymph # (Auto) 0.4 L [place]ison # (Auto) Seg Neutrophils % 83.7 H Seg Neutrophils # PT INR D-Dimer 472.87 H Sodium Potassium Chloride BUN Creatinine Glucose POC Glucose Ferritin AST ALT Lactate Dehydrogenase C-Reactive Protein Total Protein Albumin Coronavirus (PCR) Positive A 09/28/20 09/28/20 09/29/20 14:08 14:08 16:11 WBC Lymph % (Auto) Addison % (Auto) Lymph # (Auto) Addison # (Auto) Seg Neutrophils % Seg Neutrophils # PT INR D-Dimer Sodium 136 L Potassium Chloride 97.7 L BUN Creatinine Glucose 174 H 190 H POC Glucose Ferritin 2520.0 H AST 43 H ALT Lactate Dehydrogenase 623 H C-Reactive Protein 8.70 H Total Protein Albumin 3.6 L 3.4 L Coronavirus (PCR) 09/30/20 10/01/20 10/01/20 04:48 06:07 13:14 WBC Lymph % (Auto) [place]ison % (Auto) Lymph # (Auto) Addison # (Auto) Seg Neutrophils % Seg Neutrophils # PT INR D-Dimer 986.83 H Sodium Potassium Chloride BUN Creatinine 0.7 L 0.7 L Glucose 203 H 257 H POC Glucose Ferritin AST ALT Lactate Dehydrogenase C-Reactive Protein Total Protein Albumin 3.3 L 3.3 L Coronavirus (PCR) 10/01/20 10/01/20 10/02/20 13:14 13:14 05:04 WBC Lymph % (Auto) Addison % (Auto) Lymph # (Auto) Addison # (Auto) Seg Neutrophils % Seg Neutrophils # PT INR D-Dimer Sodium 130 L D Potassium Chloride 96.1 L BUN Creatinine Glucose 282 H POC Glucose Ferritin 1649.0 H AST 50 H ALT 104 H Lactate Dehydrogenase 574 H C-Reactive Protein Total Protein Albumin 3.1 L Coronavirus (PCR) 10/03/20 10/04/20 10/05/20 08:11 07:03 22:29 WBC Lymph % (Auto) Addison % (Auto) Lymph # (Auto) Addison # (Auto) Seg Neutrophils % Seg Neutrophils # PT INR D-Dimer Sodium 131 L 134 L Potassium Chloride 93.6 L 96.7 L BUN Creatinine 0.6 L 0.6 L Glucose 277 H 273 H POC Glucose 315 H Ferritin AST ALT 95 H 78 H Lactate Dehydrogenase C-Reactive Protein Total Protein 5.7 L 5.3 L Albumin 3.2 L 3.0 L Coronavirus (PCR) 10/06/20 10/06/20 10/06/20 07:45 12:09 17:18 WBC Lymph % (Auto) Addison % (Auto) Lymph # (Auto) Addison # (Auto) Seg Neutrophils % Seg Neutrophils # PT INR D-Dimer Sodium Potassium Chloride BUN Creatinine Glucose POC Glucose 284 H 296 H 361 H Ferritin AST ALT Lactate Dehydrogenase C-Reactive Protein Total Protein Albumin Coronavirus (PCR) 10/06/20 10/07/20 10/07/20 22:32 07:58 11:57 WBC Lymph % (Auto) Addison % (Auto) Lymph # (Auto) Addison # (Auto) Seg Neutrophils % Seg Neutrophils # PT INR D-Dimer Sodium Potassium Chloride BUN Creatinine Glucose POC Glucose 334 H 274 H 296 H Ferritin AST ALT Lactate Dehydrogenase C-Reactive Protein Total Protein Albumin Coronavirus (PCR) 10/07/20 10/07/20 10/07/20 16:09 21:51 21:51 WBC Lymph % (Auto) [place]ison % (Auto) Lymph # (Auto) Addison # (Auto) Seg Neutrophils % Seg Neutrophils # PT INR D-Dimer Sodium 124 L D Potassium 5.5 H Chloride 92.4 L BUN 23 H Creatinine 0.7 L Glucose 383 H POC Glucose 362 H 425 H Ferritin AST ALT Lactate Dehydrogenase C-Reactive Protein Total Protein Albumin Coronavirus (PCR) 10/08/20 10/08/20 10/08/20 05:41 05:41 05:41 WBC 13.4 H Lymph % (Auto) 4.1 L [place]ison % (Auto) 8.2 H Lymph # (Auto) 0.5 L [place]ison # (Auto) 1.1 H Seg Neutrophils % 87.5 H Seg Neutrophils # 11.7 H PT INR D-Dimer 4340.21 H Sodium 129 L Potassium Chloride 93.5 L BUN 23 H Creatinine 0.7 L Glucose 317 H POC Glucose Ferritin AST ALT 63 H Lactate Dehydrogenase C-Reactive Protein Total Protein 5.8 L Albumin 3.0 L Coronavirus (PCR) 10/08/20 10/08/20 10/08/20 09:02 11:15 16:41 WBC Lymph % (Auto) Addison % (Auto) Lymph # (Auto) Addison # (Auto) Seg Neutrophils % Seg Neutrophils # PT INR D-Dimer Sodium Potassium Chloride BUN Creatinine Glucose POC Glucose 350 H 363 H 313 H Ferritin AST ALT Lactate Dehydrogenase C-Reactive Protein Total Protein Albumin Coronavirus (PCR) 10/09/20 10/09/20 10/09/20 05:07 07:25 11:12 WBC Lymph % (Auto) Addison % (Auto) Lymph # (Auto) Addison # (Auto) Seg Neutrophils % Seg Neutrophils # PT INR D-Dimer 1781.12 H Sodium Potassium Chloride BUN Creatinine Glucose POC Glucose 259 H 325 H Ferritin AST ALT Lactate Dehydrogenase C-Reactive Protein Total Protein Albumin Coronavirus (PCR) 10/09/20 10/09/20 10/10/20 16:37 21:33 05:56 WBC 11.6 H Lymph % (Auto) Addison % (Auto) Lymph # (Auto) Addison # (Auto) Seg Neutrophils % Seg Neutrophils # PT INR D-Dimer Sodium Potassium Chloride BUN Creatinine Glucose POC Glucose 323 H 343 H Ferritin AST ALT Lactate Dehydrogenase C-Reactive Protein Total Protein Albumin Coronavirus (PCR) 10/10/20 10/10/20 10/10/20 05:56 05:56 08:20 WBC Lymph % (Auto) Addison % (Auto) Lymph # (Auto) Addison # (Auto) Seg Neutrophils % Seg Neutrophils # PT 16.3 H INR 1.26 H D-Dimer Sodium Potassium Chloride BUN Creatinine 0.6 L Glucose POC Glucose 244 H Ferritin AST ALT Lactate Dehydrogenase C-Reactive Protein Total Protein Albumin Coronavirus (PCR) 10/10/20 11:39 WBC Lymph % (Auto) Addison % (Auto) Lymph # (Auto) Addison # (Auto) Seg Neutrophils % Seg Neutrophils # PT INR D-Dimer Sodium Potassium Chloride BUN Creatinine Glucose POC Glucose 356 H Ferritin AST ALT Lactate Dehydrogenase C-Reactive Protein Total Protein Albumin Coronavirus (PCR) Chest x-ray: report reviewed, image reviewed CT scan - chest: report reviewed, image reviewed
[2020-10-10] MEDS: INSULIN GLARGINE 100 UNITS/ML SUB-Q SCH (22:33)
[2020-10-11] MEDS: methylPREDNISolone Sod Succinate 40 MG/1 ML INJ IV SCH (05:54)
[2020-10-11 06:01] VITALS: BP 123/79
[2020-10-11 08:29] LABS: Hematocrit 40.5 % (35.5-45.6); Hemoglobin 13.7 gm/dl (11.8-15.2); Mean Corpuscular HGB Conc 34 % (32-34); Mean Corpuscular Volume 93 fl (84-94); Platelet Count 306 K/mm3 (140-440); Red Blood Count 4.37 M/mm3 (3.65-5.03); Red Cell Distribution Width 13.3 % (13.2-15.2)
[2020-10-11] MEDS: INSULIN REGULAR, HUMAN 100 UNITS/1 ML SUB-Q SCH (09:07)
[2020-10-11] MEDS: CHOLECALCIFEROL (VIT D3) 1000 UNIT (25 mcg) TAB PO SCH (11:11)
[2020-10-11] MEDS: ZINC SULFATE 220 MG CAP PO SCH (11:11)
[2020-10-11] MEDS: ASCORBIC ACID 500 MG TAB PO SCH (11:12)
[2020-10-11] MEDS: APIXABAN 5 MG TAB PO SCH (11:12)
[2020-10-16] MEDS ORDERED: APIXABAN 5 MG TAB PO SCH (10:00)
== END 2020-10-11 15:45 | disposition home or self-care (01) | DRG 871 ==
LOC: ED 12:00 → 3A 16:01
PROVIDERS: ADMIT Internal Medicine; ATTEND Hospitalist
PROC: XW033E5 Introduction of Remdesivir Anti-infective into Peripheral Vein, Percutaneous Approach, New Technology Group 5 (ICD-10-PCS; principal; 2020-09-29)
DX: A41.89 Other specified sepsis (principal); U07.1 COVID-19; J12.82 Pneumonia due to coronavirus disease 2019; J96.01 Acute respiratory failure with hypoxia; I26.99 Other pulmonary embolism without acute cor pulmonale; E66.2 Morbid (severe) obesity with alveolar hypoventilation; Z60.2 Problems related to living alone; E11.8 Type 2 diabetes mellitus with unspecified complications; I10 Essential (primary) hypertension; Z68.33 Body mass index [BMI] 33.0-33.9, adult; Z82.49 Family history of ischemic heart disease and other diseases of the circulatory system; Z83.3 Family history of diabetes mellitus; Z79.899 Other long term (current) drug therapy
CPT/HCPCS: 36415; 71045; 71275; 80048; 80053; 81001; 82140; 82565; 82728; 82962; 83615; 84145; 85025; 85027; 85379; 85610; 85730; 86140; 87040; 93005; 93306; 94640; 94760; 99281; G0378; J0360; J0456; J0696; J1644; J1815; J1940; J2920; J7030; J7050; Q9967; U0003

== ENCOUNTER 2021-08-20 01:15 | Emergency (ER) | payer MEDICARE ==
[2021-08-20] MEDS ORDERED: KETOROLAC 10 MG TAB PO ONE (08:24)
[2021-08-20] MEDS ORDERED: ACETAMINOPHEN W/CODEINE 300-30 MG TAB PO ONE (08:25)
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
[2021-08-20 09:03] VITALS: BP 156/92
== END 2021-08-20 08:59 | disposition home or self-care (01) ==
LOC: ED 01:15
DX: R51.9 Headache, unspecified (principal); I10 Essential (primary) hypertension; E11.9 Type 2 diabetes mellitus without complications; Z79.899 Other long term (current) drug therapy; Y08.89XA Assault by other specified means, initial encounter; Y93.89 Activity, other specified; Y92.89 Other specified places as the place of occurrence of the external cause; Y99.8 Other external cause status
CPT/HCPCS: 99282

== ENCOUNTER 2021-11-18 09:50 | Emergency (ER) | payer OTHER, MEDICARE ==
[2021-11-18 10:22] VITALS: BP 151/96
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
== END 2021-11-18 14:53 | disposition home or self-care (01) ==
LOC: ED 09:50
DX: M79.18 Myalgia, other site (principal); E11.9 Type 2 diabetes mellitus without complications; I10 Essential (primary) hypertension; V89.2XXA Person injured in unspecified motor-vehicle accident, traffic, initial encounter; Y93.89 Activity, other specified; Y92.89 Other specified places as the place of occurrence of the external cause
CPT/HCPCS: 72125; 99284